=== PATIENT | male | born 1995 | race Caucasian/White ===

== ENCOUNTER 2023-08-26 19:59 | Emergency (ER) | payer SELFPAY ==
[2023-08-26 20:03] VITALS: BP 148/93; PULSE 75; TEMP 36.4; O2SAT 97; BMI 25.0
--- NOTE | 2023-08-26 20:10 | PC.NURSE ---
Patient has red area with dark center to right forearm with redness surrounding site. Patient noticed area last night and has worsened throughout the day, skin intact and no drainage noted.
--- NOTE | 2023-08-26 20:17 | ED_ITS ---
HPI HPI - General Adult General Chief complaint: Skin/Abscess/Foreign Body Stated complaint: SPIDER BITE Time Seen by Provider: 08/26/23 20:12 Source: patient Mode of arrival: walk-in Limitations: no limitations History of Present Illness HPI narrative: 28 year old male who presents with chief complaint of right upper extremity redness from possible insect bite. This morning and had increased in redness throughout the day while at work. Patient denies any fevers or chills. he otherwise healthy. There is no area of fluctuance to it. Small center scabbing is noted. Related Data Previous Rx's ?Medication ?Instructions ?Recorded cephalexin 500 mg capsule 500 mg PO TID 10 days #30 caps 08/26/23 sulfamethoxazole 800 1 tab PO BID 10 days #20 tabs 08/26/23 mg-trimethoprim 160 mg tablet (Bactrim DS) Allergies Allergy/AdvReac Type Severity Reaction Status Date / Time No Known Drug Allergies Allergy Verified 08/26/23 20:03 Opioid HPI Opioid Management Most Recent Opioid Data: No Data to Display Review of Systems ROS Narrative All Systems are negative except as noted/marked.All systems reviewed and otherwise negative Exam Narrative Exam Narrative: All Systems are negative except as noted/marked.All systems reviewed and otherwise negative Nurses note and vital signs reviewed and patient is not hypoxic. General: The patient appears well and in no apparent distress. Patient is resting comfortably on cart. Skin: Warm, dry, no pallor noted. 18x1 cm area of erythema to right upper extremity, marked with pen Head: Normocephalic, atraumatic Eye: Normal conjunctiva, no drainage, EOMI. PERRL Cardiovascular: Regular Rate and Rhythm Respiratory: Patient is in no distress, no accessory muscle use, lungs are clear to auscultation, no wheezing, rales or rhonchi GI: Normal bowel sounds, no tenderness to palpation, no masses appreciated. No rebound, guarding, or rigidity noted. Musculoskeletal: The patient has no evidence of calf tenderness, no pitting edema, symmetrical pulses noted bilaterally Neurological: A&O x4, normal speech Psychiatric: Cooperative Constitutional Vital Signs, click to edit/add: Last Vital Signs Temp 97.6 F 08/26/23 20:03 Pulse 75 08/26/23 20:03 Resp 18 08/26/23 20:03 BP 148/93 H 08/26/23 20:03 Pulse Ox 97 08/26/23 20:03 O2 Del Method Room Air 08/26/23 20:03 Course Vital Signs Vital signs: Vital Signs Temperature 97.6 F 08/26/23 20:03 Pulse Rate 75 08/26/23 20:03 Respiratory Rate 18 08/26/23 20:03 Blood Pressure 148/93 H 08/26/23 20:03 Pulse Oximetry 97 08/26/23 20:03 Oxygen Delivery Method Room Air 08/26/23 20:03 Temperature 97.6 F 08/26/23 20:03 Pulse Rate 75 08/26/23 20:03 Respiratory Rate 18 08/26/23 20:03 Blood Pressure 148/93 H 08/26/23 20:03 Pulse Oximetry 97 08/26/23 20:03 Oxygen Delivery Method Room Air 08/26/23 20:03 Medical Decision Making MDM Narrative Medical decision making narrative: Patient presented with chief complaint of right upper extremity redness. Area was marked by nursing staff. Patient appears to have cellulitis from insect bite. He is uncertain when he was bitten by. Patient be treated by Bactrim and Keflex. Patient was told return to the emergency room should he develop fever greater than 102 or pain. Medicated here as well as prescription. Follow-up primary care physician. Differential Diagnosis Differential Diagnosis: insect bite, cellullitis Medical Records Medical records reviewed: Yes I reviewed the patient's medical records Discharge Plan Discharge Stand Alone Forms: Portal Instructions Chief Complaint: Skin/Abscess/Foreign Body Clinical Impression: Cellulitis, Insect bites Patient Disposition: Home, Self-Care Time of Disposition Decision: 20:14 Condition: Good Prescriptions / Home Meds: New cephalexin 500 mg capsule 500 mg PO TID 10 Days Qty: 30 0RF sulfamethoxazole-trimethoprim [Bactrim DS] 800-160 mg tablet 1 tab PO BID 10 Days Qty: 20 0RF Print Language: [place]i Instructions: Cellulitis (ED), Insect Bite or Sting (ED) Referrals: Physician,Non-Staff, MD [Primary Care Provider] - 1 week
[2023-08-26] MEDS: SULFAMETHOXAZOLE/TRIMETHOPRIM 800-160 MG TABLET 1 TAB PO (20:26)
[2023-08-26] MEDS: CEPHALEXIN 500 MG CAPSULE PO (20:26)
== END 2023-08-26 20:33 | disposition home or self-care (01) ==
PROVIDERS: Emergency Provider Emergency Medicine
DX: S40.861A Insect bite (nonvenomous) of right upper arm, initial encounter (principal); L03.113 Cellulitis of right upper limb; W57.XXXA Bitten or stung by nonvenomous insect and other nonvenomous arthropods, initial encounter
CPT/HCPCS: 99283

== ENCOUNTER 2023-10-16 14:40 | Emergency (ER) | payer SELFPAY ==
[2023-10-16 14:45] VITALS: BP 147/98; PULSE 82; TEMP 36.9; O2SAT 95; BMI 25.0
--- OUTSIDE RECORDS SUMMARY | 2023-10-16 14:47 | XMS_ITS ---
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 By: #### E HARDEEP, LIPID, [id number], CBC, CMP, TSH3 wRFLX #### [facility] [address] [place] [address] Basophils/100 WBC (Bld) 0.2 % Normal . [facility] Comment on above: Performed By: #### E HARDEEP, LIPID, [id number], CBC, CMP, TSH3 wRFLX #### [address] Eosinophils (Bld) [#/Vol] 0.0 10*3/uL Normal 0.0-0.45 [facility] Comment on above: Performed By: #### E HARDEEP, LIPID, [id number], CBC, CMP, TSH3 wRFLX #### [facility] [address] [place] [address] [place] Eosinophils/100 WBC (Bld) 0.5 % Normal . [facility] Comment on above: Performed By: #### E HARDEEP, LIPID, [id number], CBC, CMP, TSH3 wRFLX #### [address] Erythrocyte distribution width (RBC) [Ratio] 13.3 % Normal 12.0-14.8 [facility] Comment on above: Performed By: #### E HARDEEP, LIPID, [id number], CBC, CMP, TSH3 wRFLX #### [address] [place] [address] [place] Hematocrit (Bld) [Volume fraction] 44.9 % Normal 38.8-50.0 [facility] Comment on above: Performed By: #### E HARDEEP, LIPID, [id number], CBC, CMP, TSH3 wRFLX #### [address] Hemoglobin (Bld) [Mass/Vol] 15.8 g/dL Normal 13.0-17.0 [facility] Comment on above: Performed By: #### E HARDEEP, LIPID, [id number], CBC, CMP, TSH3 wRFLX #### [address] Lymphocytes (Bld) [#/Vol] 1.9 10*3/uL Normal 1.00-4.8 [facility] Comment on above: Performed By: #### E HARDEEP, LIPID, [id number], CBC, CMP, TSH3 wRFLX #### [address] Lymphocytes/100 WBC (Bld) 36.9 % Normal . [facility] Comment on above: Performed By: #### E HARDEEP, LIPID, [id number], CBC, CMP, TSH3 wRFLX #### [address] MCH (RBC) [Entitic mass] 30.4 pg Normal 27.5-35.2 [facility] Comment on above: Performed By: #### E HARDEEP, LIPID, [id number], CBC, CMP, TSH3 wRFLX #### [address] MCV (RBC) [Entitic vol] 86.3 fL Normal 83.5-101 [facility] Comment on above: Performed By: #### E HARDEEP, LIPID, [id number], CBC, CMP, TSH3 wRFLX #### [address] Mean Corpuscular HGB Conc 35.2 g/dL Normal 32.5-35.6 [facility] Comment on above: Performed By: #### E HARDEEP, LIPID, [id number], CBC, CMP, TSH3 wRFLX #### [place] [address] [place] Monocytes (Bld) [#/Vol] 0.5 10*3/uL Normal 0.0-0.8 [facility] Comment on above: Performed By: #### E HARDEEP, LIPID, [id number], CBC, CMP, TSH3 wRFLX #### [place] [address] [place] Monocytes/100 WBC (Bld) 19.22 % Normal 0.00-20.00 [facility] Comment on above: Performed By: #### E HARDEEP, LIPID, [id number], CBC, CMP, TSH3 wRFLX #### [address] Monocytes/100 WBC (Bld) 9.6 % Normal . [facility] Comment on above: Performed By: #### E HRADEEP, LIPID, [id number], CBC, CMP, TSH3 wRFLX #### [place] [address] [place] Neutrophils (Bld) [#/Vol] 2.7 10*3/uL Normal 1.8-7.7 [facility] Comment on above: Performed By: #### E HARDEEP, LIPID, [id number], CBC, CMP, TSH3 wRFLX #### [place] [address] [place] Neutrophils/100 WBC (Bld) 52.8 % Normal . [facility] Comment on above: Performed By: #### E HARDEEP, LIPID, [id number], CBC, CMP, TSH3 wRFLX #### [place] [address] [place] NRBC% 0.3 /100{WBC} Normal 0-0.5 [facility] Comment on above: Performed By: #### E HARDEEP, LIPID, [id number], CBC, CMP, TSH3 wRFLX #### [facility] [address] Platelet mean volume (Bld) [Entitic vol] 7.4 fL Normal 6.6-10.1 [facility] Comment on above: Performed By: #### E HARDEEP, LIPID, [id number], CBC, CMP, TSH3 wRFLX #### [facility] [address] Platelets (Bld) [#/Vol] 192 10*3/uL Normal 150-450 [facility] Comment on above: Performed By: #### E HARDEEP, LIPID, [id number], CBC, CMP, TSH3 wRFLX #### [facility] [address] [place] [address] RBC (Bld) [#/Vol] 5.21 10*6/uL Normal 3.90-5.60 [facility] Comment on above: Performed By: #### E HARDEEP, LIPID, [id number], CBC, CMP, TSH3 wRFLX #### [facility] [address] [place] [address] WBC (Bld) [#/Vol] 5.2 10*3/uL Normal 4.1-10.5 [facility] Comment on above: Performed By: #### E HARDEEP, LIPID, [id number], CBC, CMP, TSH3 wRFLX #### [facility] [address] [place] [address] Comprehensive Metabolic Pane courtney 04-13-2023 Albumin [Mass/Vol] 4.7 g/dL Normal 3.5-5.7 [facility] Comment on above: Performed By: #### E HARDEEP, LIPID, [id number], CBC, CMP, TSH3 wRFLX ####[address] Albumin/Globulin [Mass ratio] 1.6 {ratio} Normal [facility] Comment on above: Performed By: #### E HARDEEP, LIPID, [id number], CBC, CMP, TSH3 wRFLX ####[facility] [place] [address] [facility] ALP [Catalytic activity/Vol] 91 U/L Normal 34-104 [facility] Comment on above: Performed By: #### E HARDEEP, LIPID, [id number], CBC, CMP, TSH3 wRFLX ####[address] [address] [facility] ALT [Catalytic activity/Vol] 20 U/L Normal 7-52 [facility] Comment on above: Performed By: #### E HARDEEP, LIPID, [id number], CBC, CMP, TSH3 wRFLX ####[address] [address] [facility] Anion gap [Moles/Vol] 9.3 mmol/L Normal 6.0-15.0 [facility] Comment on above: Performed By: #### E HARDEEP, LIPID, [id number], CBC, CMP, TSH3 wRFLX ####[address] [address] [facility] AST [Catalytic activity/Vol] 21 U/L Normal 13-39 [facility] Comment on above: Performed By: #### E HARDEEP, LIPID, [id number], CBC, CMP, TSH3 wRFLX ####[address] [address] [facility] Bilirubin [Mass/Vol] 0.5 mg/dL Normal 0.3-1.0 [facility] Comment on above: Performed By: #### E HARDEEP, LIPID, [id number], CBC, CMP, TSH3 wRFLX ####[address] [address] [facility] Calcium [Mass/Vol] 9.4 mg/dL Normal 8.6-10.3 [facility] Comment on above: Performed By: #### E HARDEEP, LIPID, [id number], CBC, CMP, TSH3 wRFLX ####[address] [address] [facility] Chloride [Moles/Vol] 106 mmol/L Normal 98-107 [facility] Comment on above: Performed By: #### E HARDEEP, LIPID, [id number], CBC, CMP, TSH3 wRFLX ####[place] [id number] [facility] CO2 [Moles/Vol] 27.8 mmol/L Normal 21.0-31.0 [facility] Comment on above: Performed By: #### E HARDEEP, LIPID, [id number], CBC, CMP, TSH3 wRFLX ####[place] [id number] [facility] Creatinine [Mass/Vol] 0.94 mg/dL Normal 0.70-1.30 [facility] Comment on above: Performed By: #### E HARDEEP, LIPID, [id number], CBC, CMP, TSH3 wRFLX ####[place] [id number] [facility] Creatinine Clr Calc Pharmacy 141.08 [facility] Comment on above: Result Comment: PERF ORMED BY: [facility] [address] [place] [address] PATHOLOGIST CHEMICAL SUPERVISOR CHAR AMES M.D. Performed By: #### E HARDEEP, LIPID, [id number], CBC, CMP, TSH3 wRFLX ####[place] [id number] [facility] GFR/1.73 sq M.predicted MDRD (S/P/Bld) [Vol rate/Area] mL/min/{1.73_m2} [facility] Comment on above: Performed By: #### E HARDEEP, LIPID, [id number], CBC, CMP, TSH3 wRFLX ####[address] [address] [facility] Globulin (S) [Mass/Vol] 2.9 g/dL [facility] Comment on above: Performed By: #### E HARDEEP, LIPID, [id number], CBC, CMP, TSH3 wRFLX ####[place] [id number] [facility] Glucose [Mass/Vol] 96 mg/dL Normal 70-100 [facility] Comment on above: Result Comment: [facility] Glucose Reference Range is dependent on time and content of last meal. Glucose of more than 200 mg/dL in a nonstressed, ambulatory subject supports the diagnosis of Diabetes Mellitus. ADA recommended reference range Performed By: #### E HARDEEP, LIPID, [id number], CBC, CMP, TSH3 wRFLX ####[facility] [id number] [place] [address] [facility] Potassium [Moles/Vol] 4.1 mmol/L Normal 3.5-5.1 [facility] Comment on above: Performed By: #### E HARDEEP, LIPID, [id number], CBC, CMP, TSH3 wRFLX ####[facility] [id number] [place] [address] [facility] Protein [Mass/Vol] 7.6 g/dL Normal 6.4-8.9 [facility] Comment on above: Performed By: #### E HARDEEP, LIPID, [id number], CBC, CMP, TSH3 wRFLX ####[facility] [id number] [place] [address] [facility] Sodium [Moles/Vol] 139 mmol/L Normal 136-145 [facility] Comment on above: Performed By: #### E HARDEEP, LIPID, [id number], CBC, CMP, TSH3 wRFLX ####[facility] [id number] [place] [address] [facility] Urea nitrogen [Mass/Vol] 12 mg/dL Normal 7-25 [facility] Comment on above: Performed By: #### E HARDEEP, LIPID, [id number], CBC, CMP, TSH3 wRFLX ####[facility] [place] [address] [facility] Creatinine [Mass/volume] in Serum or PlasmaOrdered By: Germán Wilcox on 04-13-2023 Creatinine [Mass/Vol] 0.94 mg/dL 0.70-1.30 [facility] Drug Screen,Urineon 04-13-20 Amphetamine Screen,Urine Negative Normal Negative [facility] Comment on above: Performed By: #### U A, URDS #### [facility] [address] [place] [address] Barbiturate Screen,Urine Negative Normal Negative [facility] Comment on above: Performed By: #### U A, URDS #### [address] Benzodiazepines Screen,Urine Negative Normal Negative [facility] Comment on above: Performed By: #### U A, URDS #### [address] Cannabinoid Screen,Urine Positive High Negative [facility] Comment on above: Result Comment: Thes e are unconfirmed results and should not be used for legal purposes. Drug Cut-Off Concentration: AMPH 1000 ng/mL DEDE 200 ng/mL ADELA 200 ng/mL COCM 300 ng/mL OP 300 ng/mL PCP 25 ng/mL THC 20 ng/mL PERFORMED BY: [place] [address] PATHOLOGIST CHEMICAL SUPERVISOR CHAR AMES M.D. Performed By: #### U A, URDS #### [address] Cocaine Screen,Urine Negative Normal Negative [facility] Comment on above: Performed By: #### U A, URDS #### [address] Opiate Screen,Urine Negative Normal Negative [facility] Comment on above: Performed By: #### U A, URDS #### [place] [address] [place] Phencyclidine Screen,Urine Negative Normal Negative [facility] Comment on above: Performed By: #### U A, URDS #### [address] Eosinophils Auto (Bld) [#/Vo l]Ordered By: Germán Wilcox on 04-13-2023 Eosinophils (Bld) [#/Vol] 0.0 10*3/uL 0.0-0.45 [facility] Eosinophils/100 WBC Auto (Bl d)Ordered By: Germán Wilcox on 04-13-2023 Eosinophils/100 WBC (Bld) 0.5 % . [facility] Erythrocyte distribution wid th Auto (RBC) [Ratio]Ordered By: Germán Wilcox on 04-13-2023 Erythrocyte distribution width (RBC) [Ratio] 13.3 % 12.0-14.8 [facility] Ethanol [Mass/volume] in Ser um or PlasmaOrdered By: Germán Wilcox on 04-13-2023 Ethanol [Mass/Vol] mg/dL [facility] Ethanol [Mass/Vol] TNP [facility] Comment on above: Test not performed Ethyl Alcohol Profileon 03-19 Ethanol [Mass/Vol] mg/dL Normal [facility] Comment on above: Performed By: #### E HARDEEP, LIPID, [id number], CBC, CMP, TSH3 wRFLX ####[facility] [id number] Percent Ethanol Not performed Normal [facility] Comment on above: Result Comment: PERF ORMED BY: [facility] [address] [place] [address] PATHOLOGIST CHEMICAL SUPERVISOR CHAR AMES M.D. Performed By: #### E HARDEEP, LIPID, [id number], CBC, CMP, TSH3 wRFLX ####[facility] [id number] Globulin Calc (S) [Mass/Vol] Ordered By: Germán Wilcox on 04-13-2023 Globulin (S) [Mass/Vol] 2.9 g/dL [facility] Glucose [Mass/volume] in Ser um or PlasmaOrdered By: Germán Wilcox on 04-13-2023 Glucose [Mass/Vol] 96 mg/dL 70-100 [facility] Comment on above: ADA recommended refe rence rangeRandom Glucose Reference Range is dependent on time and content of last meal. Glucose of more than 200 mg/dL in a nonstressed, ambulatory subject supports the diagnosis of Diabetes Mellitus. Hematocrit Auto (Bld) [Volum e fraction]Ordered By: Germán Wilcox on 04-13-2023 Hematocrit (Bld) [Volume fraction] 44.9 % 38.8-50.0 [facility] Hemoglobin [Mass/volume] in BloodOrdered By: Germán Wilcox on 04-13-2023 Hemoglobin (Bld) [Mass/Vol] 15.8 g/dL 13.0-17.0 [facility] Ketones Auto test strip (U) [Mass/Vol]Ordered By: Germán Wilcox on 04-13-2023 Ketones (U) [Mass/Vol] Negative Negative [facility] Leukocytes [#/volume] correc selina for nucleated erythrocytes in Blood by Automated counOrdered By: Germán Wilcox on 04-13-2023 WBC corrected for nucl RBC Auto (Bld) [#/Vol] 5.2 10*3/uL 4.1-10.5 [facility] Lipid Panelon 04-13-2023 Cholesterol [Mass/Vol] 174 mg/dL Normal 140-200 [facility] Comment on above: Result Comment: Chol less than 200 mg/dl low risk Chol 201-239 mg/dl borderline risk Chol 240 mg/dl and greater high risk Performed By: #### E HARDEEP, LIPID, [id number], CBC, CMP, TSH3 wRFLX ####[place] [address] [address] Cholesterol in HDL [Mass/Vol] 39 mg/dL Normal 23-92 [facility] Comment on above: Result Comment: HDL CHOL ATP-III CLASSIFICATION Cardiovascular Risk HDL > or equal to 60 mg/dL LOW HDL < 40 mg/dL HIGH Performed By: #### E HARDEEP, LIPID, [id number], CBC, CMP, TSH3 wRFLX ####[facility] [id number] [place] [address] [facility] Cholesterol.total/Cho lesterol in HDL [Mass ratio] 4.5 {ratio} Normal <5.0 [facility] Comment on above: Performed By: #### E HARDEEP, LIPID, [id number], CBC, CMP, TSH3 wRFLX ####[place] [id number] [facility] LDL Cholesterol,Calculate d 123 mg/dL High 0-100 [facility] Comment on above: Result Comment: LDL ATP III CLASSIFICATION LDL less than 100 mg/dL Optimal LDL 100-129 mg/dL Near or above optimal LDL 130-159 mg/dL Borderline high LDL 160-189 mg/dL High LDL greater than 189 mg/dL Very high Performed By: #### E HARDEEP, LIPID, [id number], CBC, CMP, TSH3 wRFLX ####[facility] [id number] Triglyceride w/Reflex 58 mg/dL Normal 0-149 [facility] Comment on above: Result Comment: TRIG ATP III CLASSIFICATION TRIG less than 150 mg/dL Normal TRIG 150-199 mg/dL Borderline high TRIG 200-500 mg/dL High TRIG greater than 500 mg/dL Very high Standard traceable to the Center for Disease Conrtrol and Prevention (CDC) test method. Performed By: #### E HARDEEP, LIPID, [id number], CBC, CMP, TSH3 wRFLX ####[facility] [id number] VLDL CHOLESTEROL 11 mg/dL Normal [facility] Comment on above: Performed By: #### E HARDEEP, LIPID, [id number], CBC, CMP, TSH3 wRFLX ####[facility] [id number] Lymphocytes Auto (Bld) [#/Vo l]Ordered By: Germán Wilcox on 04-13-2023 Lymphocytes (Bld) [#/Vol] 1.9 10*3/uL 1.00-4.8 [facility] Lymphocytes/100 WBC Auto (Bl d)Ordered By: Germán Wilcox on 04-13-2023 Lymphocytes/100 WBC (Bld) 36.9 % . [facility] MCH Auto (RBC) [Entitic mass ]Ordered By: Gemrán Wilcox on 04-13-2023 MCH (RBC) [Entitic mass] 30.4 pg 27.5-35.2 [facility] MCHC Auto (RBC) [Mass/Vol]Or dered By: Germán Wilcox on 04-13-2023 MCHC (RBC) [Mass/Vol] 35.2 g/dL 32.5-35.6 [facility] MCV Auto (RBC) [Entitic vol] Ordered By: Germán Wilcox on 04-13-2023 MCV (RBC) [Entitic vol] 86.3 fL 83.5-101 [facility] Monocyte distribution width [Entitic volume] in Blood by AutomatedOrdered By: Germán Wilcox on 04-13-2023 Monocyte distribution width Auto (Bld) [Entitic vol] 19.22 % 0.00-20.00 [facility] Monocytes Auto (Bld) [#/Vol] Ordered By: Germán Wilcox on 04-13-2023 Monocytes (Bld) [#/Vol] 0.5 10*3/uL 0.0-0.8 [facility] Monocytes/100 WBC Auto (Bld) Ordered By: Germán Wilcox on 04-13-2023 Monocytes/100 WBC (Bld) 9.6 % . [facility] Neutrophils Auto (Bld) [#/Vo l]Ordered By: Germán Wilcox on 04-13-2023 Neutrophils (Bld) [#/Vol] 2.7 10*3/uL 1.8-7.7 [facility] Neutrophils/100 WBC Auto (Bl d)Ordered By: Germán Wilcox on 04-13-2023 Neutrophils/100 WBC (Bld) 52.8 % . [facility] Nitrite Test strip Ql (U)Ord ered By: Germán Wilcox on 04-13-2023 Nitrite Ql (U) Negative Negative [facility] No Panel InformationOrdered By: Germán Wilcox on 04-13-2023 Estimated GFR (CKD-EPI) > 60.0 mL/Min [facility] Creatinine Clearance (Chem 141.08 [facility] Nucleated erythrocytes [Pres ence] in Blood by Automated countOrdered By: Germán Wilcox on 04-13-2023 Nucleated RBC Auto Ql (Bld) 0.3 /100{WBC} 0-0.5 [facility] Opiates [Presence] in Urine by Screen methodOrdered By: Germán Wilcox on 04-13-2023 Opiates Screen Ql (U) Negative Negative [facility] Phencyclidine Screen Ql (U)O rdered By: Germán Wilcox on 04-13-2023 Phencyclidine Ql (U) Negative Negative [facility] Platelet mean volume Auto (B ld) [Entitic vol]Ordered By: Germán Wilcox on 04-13-2023 Platelet mean volume (Bld) [Entitic vol] 7.4 fL 6.6-10.1 [facility] Platelets Auto (Bld) [#/Vol] Ordered By: Germán Wilcox on 04-13-2023 Platelets (Bld) [#/Vol] 192 10*3/uL 150-450 [facility] Potassium [Moles/volume] in Serum or PlasmaOrdered By: Germán Wilcox on 04-13-2023 Potassium [Moles/Vol] 4.1 mmol/L 3.5-5.1 [facility] Protein Auto test strip (U) [Mass/Vol]Ordered By: Germán Wilcox on 04-13-2023 Protein (U) [Mass/Vol] Negative Negative [facility] Protein [Mass/volume] in Ser um or PlasmaOrdered By: Germán Wilcox on 04-13-2023 Protein [Mass/Vol] 7.6 g/dL 6.4-8.9 [facility] RBC Auto (Bld) [#/Vol]Ordere d By: Germán Wilcox on 04-13-2023 RBC (Bld) [#/Vol] 5.21 10*6/uL 3.90-5.60 [facility] Serum or plasma albumin/glob ulin mass ratioOrdered By: Germán Wilcox on 04-13-2023 Albumin/Globulin [Mass ratio] 1.6 {ratio} [facility] Serum or plasma anion gap de terminationOrdered By: Germán Wilcox on 04-13-2023 Anion gap [Moles/Vol] 9.3 mmol/L 6.0-15.0 [facility] Serum or plasma high density lipoprotein (HDL) cholesterol measurementOrdered By: Germán Wilcox on 04-13-2023 Cholesterol in HDL [Mass/Vol] 39 mg/dL 23-92 [facility] Comment on above: HDL CHOL ATP-III CLA SSIFICATION Cardiovascular RiskHDL > or equal to 60 mg/dL LOWHDL < 40 mg/dL HIGH Serum or plasma total choles terol/high density lipoprotein (HDL) cholesterol mass ratOrdered By: Germán Wilcox on 04-13-2023 Cholesterol.total/Cho lesterol in HDL [Mass ratio] 4.5 {ratio} <5.0 [facility] Sodium [Moles/volume] in Ser um or PlasmaOrdered By: Germán Wilcox on 04-13-2023 Sodium [Moles/Vol] 139 mmol/L 136-145 [facility] Specific gravity Auto test s trip (U) [Rel density]Ordered By: Germán Wilcox on 04-13-2023 Specific gravity (U) [Rel density] 1.025 1.001-1.03 0 [facility] Thyroid Stim Hormone w/Rflxo n 04-13-2023 Thyroid Stim Hormone w/Rflx 1.24 u[iU]/mL Normal 0.45-5.33 [facility] Comment on above: Performed By: #### E HARDEEP, LIPID, [id number], CBC, CMP, TSH3 wRFLX ####[facility] [id number] Thyrotropin [Units/volume] i n Serum or PlasmaOrdered By: Germán Wilcox on 04-13-2023 TSH Qn 1.24 m[IU]/L 0.45-5.33 [facility] Triglyceride [Mass/volume] i n Serum or PlasmaOrdered By: Germán Wilcox on 04-13-2023 Triglyceride [Mass/Vol] 58 mg/dL 0-149 [facility] Comment on above: TRIG ATP III CLASSIF ICATIONTRIG less than 150 mg/dL NormalTRIG 150-199 mg/dL Borderline highTRIG 200-500 mg/dL High TRIG greater than 500 mg/dL Very highStandard traceable to the Center for Disease Conrtrol and Prevention (CDC) test method. Urea nitrogen [Mass/volume] in Serum or PlasmaOrdered By: Germán Wilcox on 04-13-2023 Urea nitrogen [Mass/Vol] 12 mg/dL 7-25 [facility] Urinalysison 04-13-2023 Appearance (U) Clear Normal Clear [facility] Comment on above: Order Comment: Name Collection Type:: Clean-Voided Midstream Performed By: #### U A, URDS #### [facility] [address] Bilirubin,Urine Negative Normal Negative [facility] Comment on above: Order Comment: Name Collection Type:: Clean-Voided Midstream Performed By: #### U A, URDS #### [facility] [address] [place] [address] [place] Color (U) Yellow Normal Yellow [facility] Comment on above: Order Comment: Name Collection Type:: Clean-Voided Midstream Performed By: #### U A, URDS #### [facility] [address] [place] [address] Glucose Ql (U) Normal Normal Normal [facility] Comment on above: Order Comment: Name Collection Type:: Clean-Voided Midstream Performed By: #### U A, URDS #### [facility] [address] [place] [address] Ketones Ql (U) Negative Normal Negative [facility] Comment on above: Order Comment: Name Collection Type:: Clean-Voided Midstream Performed By: #### U A, URDS #### [facility] [address] [place] [address] Leukocyte esterase Test strip Ql (U) Negative Normal Negative [facility] Comment on above: Order Comment: Name Collection Type:: Clean-Voided Midstream Performed By: #### U A, URDS #### [facility] [address] [place] [address] Nitrite,Urine Negative Normal Negative [facility] Comment on above: Order Comment: Name Collection Type:: Clean-Voided Midstream Performed By: #### U A, URDS #### [facility] [address] [place] [address] Occult Blood,Urine Negative Normal Negative [facility] Comment on above: Order Comment: Name Collection Type:: Clean-Voided Midstream Result Comment: PERF ORMED BY: [place] [address] PATHOLOGIST CHEMICAL SUPERVISOR CHAR AMES M.D. Performed By: #### U A, URDS #### [facility] [address] [place] [address] [place] pH (U) 6.5 [pH] Normal 5.0-9.0 [facility] Comment on above: Order Comment: Name Collection Type:: Clean-Voided Midstream Performed By: #### U A, URDS #### [facility] [address] [place] [address] [place] Protein,Urine Negative Normal Negative [facility] Comment on above: Order Comment: Name Collection Type:: Clean-Voided Midstream Performed By: #### U A, URDS #### [facility] [address] Specificy [place],Urine 1.025 Normal 1.001-1.03 0 [facility] Comment on above: Order Comment: Name Collection Type:: Clean-Voided Midstream Performed By: #### U A, URDS #### [facility] [address] Urobilinogen,Urine Normal Normal Normal [facility] Comment on above: Order Comment: Name Collection Type:: Clean-Voided Midstream Performed By: #### U A, URDS #### [facility] [address] [place] [address] Urine clarity by refractomet ry automatedOrdered By: Germán Wilcox on 04-13-2023 Clarity Refractometry automated (U) Clear Clear [facility] Urine glucose measurement by automated test strip (mass/volume)Ordered By: Germán Wilcox on 04-13-2023 Glucose Auto test strip (U) [Mass/Vol] Normal mg/dL Normal [facility] Urine hemoglobin detection b y automated test stripOrdered By: Germán Wilcox on 04-13-2023 Hemoglobin Auto test strip Ql (U) Negative Negative [facility] Urine leukocyte esterase det ection by automated test stripOrdered By: Germán Wilcox on 04-13-2023 Leukocyte esterase Auto test strip Ql (U) Negative Negative [facility] Urobilinogen Auto test strip (U) [Mass/Vol]Ordered By: Germán Wilcox on 04-13-2023 Urobilinogen (U) [Mass/Vol] Normal mg/dL Normal [facility] Vitamin D 25 Hydroxy Totalon 04-13-2023 Vitamin D 25 Hydroxy Total 24.8 ng/mL Low 30-100 [facility] Comment on above: Result Comment: MELCHOR MIN D STATUS 25([place])VITAMIN D RANGE (ng/mL) Deficient <20 Insufficient 20 to <30 Sufficient 30 to 100 Reference: Bridgette Nugent, Eliz VELEZ, et al. Evaluation,treatment, and prevention of vitamin D deficiency; an Endocrine Society clinical practice guideline. JCEM. 2010; 96(7):1911-. PERFORMED BY: [place] [address] PATHOLOGIST CHEMICAL SUPERVISOR CHAR AMES M.D. Performed By: #### E HARDEEP, LIPID, [id number], CBC, CMP, TSH3 wRFLX ####[facility] [id number] [place] [id number] [facility] Vitamin D+Metabolites [Mass/ volume] in Serum or PlasmaOrdered By: Germán Wilcox on 04-13-2023 Vitamin D+Metabolites [Mass/Vol] 24.8 ng/mL 30-100 [facility] Comment on above: VITAMIN D STATUS 25( [place])VITAMIN D RANGE (ng/mL) Deficient <20 Insufficient 20 to <30Sufficient 30 to 100Reference: Bridgette Nugent, Eliz VELEZ, et al. Evaluation,treatment, and prevention of vitamin D deficiency; an Endocrine Society clinical practice guideline. JCEM. 2010; 96(7):1911-30. WBC Auto (Bld) [#/Vol]Ordere d By: Germán Wilcox on 04-13-2023 WBC (Bld) [#/Vol] 5.2 10*3/uL 4.1-10.5 [facility] XR acute abdomen serieson XR acute abdomen series [facility] Main [place] [id number] XRay Report Signed Patient: Shahbaz Bettencourt MR#: [id number] 9 : 1995 Acct:[id number] Age/Sex: 28 / M ADM Date: 04/13/23 Loc: Room: [address] [place] [address] Type: ADM IN Attending Dr: Huan Brown MD Copies to: MD Germán Kline DO Ordering Provider: Germán Wilcox DO Date of Service: 04/13/23 XR/XR acute abdomen series: Patient states he swallowed 4-5 quarters Acute abdominal series COMPARISON: 01/26/2023 HISTORY: Swallowed 4 quarters. THORAX: Lung bases unremarkable. FREE AIR: Supine position limits assessment BOWEL: No gaseous intestinal distention. STOOL: No significant stool RENAL STONES: No significant stones present. VASCULAR CALCIFICATIONS: Unremarkable SOFT TISSUE: Unremarkable BONES: Unremarkable POSTSURGICAL CHANGES: None No metallic or radiodense foreign body identified. XR/XR acute abdomen series IMPRESSION: No significant findings. No metallic foreign body from the midneck to the pelvis. Impression dictated by: Nate Marie M.D.04/13/2023 4:43 PM Dictation Location: [place] [address] Transcribed By: [place] 04/13/231642 Dictated By: Nate Marie DO 04/13/231640 Signed By: 04/13/231642 Normal [facility] pH Auto test strip (U)Ordere d By: Germán Wilcox on 04-13-2023 pH (U) 6.5 [pH] 5.0-9.0 [facility] Alanine aminotransferase [En zymatic activity/volume] in Serum or PlasmaOrdered By: Jorge L Beavers on 01-26-2023 ALT [Catalytic activity/Vol] 35 U/L 7-52 [facility] Albumin [Mass/volume] in Ser um or Plasma by Bromocresol green (BCG) dye binding methoOrdered By: Jorge L Beavers on 01-26-2023 Albumin BCG dye [Mass/Vol] 4.3 g/dL 3.5-5.7 [facility] Alkaline phosphatase [Enzyma tic activity/volume] in Serum or PlasmaOrdered By: Jorge L Beavers on 01-26-2023 ALP [Catalytic activity/Vol] 73 U/L 34-104 [facility] Amylaseon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 ####[facility] (DEFAULT)[address] [place] [address] Man Diff? Auto Normal [facility] Comment on above: Performed By: #### 5 [id number], [id number], [id number] ####[facility] (DEFAULT)[address] [place] [address] MCH 31 pg Normal 24-34 [facility] Comment on above: Performed By: #### 5 [id number], [id number], [id number] ####[facility] (DEFAULT)[address] [place] [address]754 MCHC mass conc (RBC) 36 g/dL Normal 26-37 [facility] Comment on above: Performed By: #### 5 [id number], [id number], [id number] ####[facility] (DEFAULT)[address] [place] [address] 84657 MCV 86 fL Normal 81-100 [facility] Comment on above: Performed By: #### 5 [id number], [id number], [id number] ####[facility] (DEFAULT)[address] [place] [address] Platelet mean volume (PMV) 9.4 fL Normal 6.3-10.2 [facility] Comment on above: Performed By: #### 5 [id number], [id number], [id number] ####[facility] (DEFAULT)[address] [place] [address] Platelets 143 x10 Normal 138-427 [facility] Comment on above: Performed By: #### 5 [id number], [id number], [id number] ####[facility] (DEFAULT)[address] [place] [address] WBC (Leukocytes) 5.0 x10 Invalid Interpretation Code [facility] Comment on above: Performed By: #### 5 [id number], [id number], [id number] ####[facility] (DEFAULT)[address] [place] [address] CMP Standardon 08-02-2017 Albumin 4.4 g/dL Normal 3.5-5.0 [facility] Comment on above: Performed By: #### 5 [id number], [id number], [id number] ####[facility] (DEFAULT)[address] [place] [address] Albumin/Globulin Ratio 1.4 {ratio} Normal 1.4-2.6 [facility] Comment on above: Performed By: #### 5 [id number], [id number], [id number] ####[facility] (DEFAULT)[address] [place] [address] Alk Phos 80 IU/L Normal 32-91 [facility] Comment on above: Performed By: #### 5 [id number], [id number], [id number] ####[facility] (DEFAULT)[address] [place] [address] ALT/SGPT 21.0 IU/L Normal 17.0-63.0 [facility] Comment on above: Performed By: #### 5 [id number], [id number], [id number] ####[facility] (DEFAULT)[address] [place] [address] Anion gap 10.0 mmol/L Normal 5.0-19.0 [facility] Comment on above: Performed By: #### 5 [id number], [id number], [id number] ####[facility] (DEFAULT)[address] [place] [address] AST/SGOT 21 IU/L Normal 15-41 [facility] Comment on above: Performed By: #### 5 [id number], [id number], [id number] ####[facility] (DEFAULT)[address] [place] [address] Bili Total 0.8 mg/dL Normal 0.3-1.2 [facility] Comment on above: Performed By: #### 5 [id number], [id number], [id number] ####[facility] (DEFAULT)[address] [place] [address] BUN/Creatinine Ratio 10.0 mg/mg Normal 4.6-16.2 [facility] Comment on above: Performed By: #### 5 [id number], [id number], [id number] ####[facility] (DEFAULT)[address] [place] [address] Calcium 8.7 mg/dL Low 8.9-10.3 [facility] Comment on above: Performed By: #### 5 [id number], [id number], [id number] ####[facility] (DEFAULT)[address] [place] [address] Chloride 103 mmol/L Normal 101-111 [facility] Comment on above: Performed By: #### 5 [id number], [id number], [id number] ####[facility] (DEFAULT)[address] [place] [address]26 CO2 27 mmol/L Normal 21-32 [facility] Comment on above: Performed By: #### 5 [id number], [id number], [id number] ####[facility] (DEFAULT)[address] [place] [address]5716 Creatinine 0.99 mg/dL Normal 0.90-1.30 [facility] Comment on above: Performed By: #### 5 [id number], [id number], [id number] ####[facility] (DEFAULT)[address] [place] [address]200 eGFR (non-black) mL/min/{1.73_m2} Invalid Interpretation Code [facility] Comment on above: Performed By: #### 5 [id number], [id number], [id number] ####[facility] (DEFAULT)[address] [place] [address] Result Comment: Plaster Block Layer gilda Kidney disease could be indicated at eGFRs of less than 60 ml/min/1.73m2. Kidney Failure is indicated at less than 15 ml/min/1.73m2 Globulin 3.1 g/dL Normal 1.5-4.3 [facility] Comment on above: Performed By: #### 5 [id number], [id number], [id number] ####[facility] (DEFAULT)[address] [place] [address]2786 Glucose mass conc 100.0 mg/dL Normal 74.0-118.0 [facility] Comment on above: Performed By: #### 5 [id number], [id number], [id number] ####[facility] (DEFAULT)[address] [place] [address]60 Osmolality 271 mOsm/L Invalid Interpretation Code [facility] Comment on above: Performed By: #### 5 [id number], [id number], [id number] ####[facility] (DEFAULT)[address] [place] [address]5510 Potassium molar conc 3.8 mmol/L Normal 3.6-5.1 [facility] Comment on above: Performed By: #### 5 [id number], [id number], [id number] ####[facility] (DEFAULT)[address] [place] [address]25 Protein 7.5 g/dL Normal 6.5-8.1 [facility] Comment on above: Performed By: #### 5 [id number], [id number], [id number] ####[facility] (DEFAULT)[address] [place] [address] Sodium 136.0 mmol/L Normal 136.0-144. 0 [facility] Comment on above: Performed By: #### 5 [id number], [id number], [id number] ####[facility] (DEFAULT)[address] [place] [address] Urea nitrogen 10 mg/dL Normal 12-11 [facility] Comment on above: Performed By: #### 5 [id number], [id number], [id number] ####[facility] (DEFAULT)[address] [place] [address] ED Clinical Summaryon 2017 ED Clinical Summary [facility] - Emergency [address] [place] [address] ed Clinical SummaryPERSON INFORMATIONName: SHAHBAZ BETTENCOURT Age: 22 Years Sex: MALEDOB: [birth year] MRN: Acct#:Visit Reason: Abdominal pain; ABD PAIN, VOMITING Arrival: 08/02/17 12:02:00 Discharge: 08/02/17 14:09:00LOS: 000 02:07 Check In: 08/02/17 12:02:00 Checkout:08/02/17 14:09:00Address:[address] [facility] [address]AOD: Provider, NonePROVIDER INFORMATIONProvider Role Assigned UnassignedLavelle De PA-C ED PA 08/02/17 12:16:04Fernanda Aragon RN ED Nurse 08/02/17 12:31:14VITALS INFORMATIONVital Sign Triage LatestTemperature TympanicTemperature Temporal ArteryPulse Rate 86 bpm 86 bpmO2 Sat 99 % 99 %Respiratory Rate 18 br/min 18 br/minBlood Pressure 144 mmHg/89 mmHg 144 mmHg/89 mmHgMEDICAL INFORMATIONMedications Given:Medication Dose Routeondansetron 4 mg POAllergy Information:No Known Medication AllergiesPHYSICIAN DOCUMENTATIONPatient: SHAHBAZ BETTENCOURT : 22 years Sex: MALE : [birth year]Associated Diagnoses: Viral gastroenteritisAuthor: Lavelle De PA-C InformationTime seen: Date & time 08/02/17 12:38:00.History source: Patient.Arrival mode: Private vehicle.History limitation: None.History of Present [id number] male presented to the emergency today with chief complaint of nausea vomiting abdominal pain. Patient stated this started early this morning with vomiting. He denied any episodes of diarrhea. He states he continued to have nausea and vomiting this morning. He stated some epigastric or left upper quadrant discomfort. He states this is like a stomach ache. He denies any right lower quadrant tenderness. He denies any history of any abdominal surgeries. He denied any fever or chills. He denies any recent contacts with similar symptoms. He denies any cold or cough ear pain sore throat and nasal congestion. He denied any urinary symptoms. He denies any headache dizziness lightheadedness. He states he still has nausea. Patient states that he has been able to tolerate water this morning. He states he does not feel like eating. Patient does not currently take any medications he is not on medication allergies. He does not currently have a primary care provider. He has no other complaints at this time.Review of SystemsConstitutional symptoms: No fever, no chills, no sweats, no weakness, no fatigue.Skin symptoms: No rash,Eye symptoms: Vision unchanged.ENMT symptoms: No ear pain, no sore throat, no nasal congestion.Respiratory symptoms: No shortness of breath, no cough.Cardiovascular symptoms: No chest pain, no palpitations, no tachycardia, no syncope, no diaphoresis, no peripheral edema.Gastrointestinal symptoms: Abdominal pain, mild, achy, nausea, vomiting, no diarrhea, no constipation, no rectal bleeding.Genitourinary symptoms: No dysuria, no hematuria.Musculoskeletal symptoms: No back pain, no Muscle pain, no Joint pain.Neurologic symptoms: No headache, no dizziness, no altered level of consciousness, no numbness, no tingling, no weakness. Additional review of systems information: All other systems reviewed and otherwise negative.Health StatusAllergies:Allergic Reactions (Selected)No Known Medication Allergies.Medications: (Selected)Inpatient MedicationsCompletedAbilify: 10 mg, 2 tab(s), PO, OnceAtivan injection: 2 mg, 1 mL, IM, OnceBenadryl: 25 mg, 1 cap(s), PO, OnceBenadryl: 50 mg, 2 cap(s), PO, OnceGeodon: 10 mg, 0.5 mL, IM, OnceGeodon: 20 mg, 1 mL, IM, OnceHaldol: 5 mg, 1 mL, IM, OnceHaldol: 5 mg, 1 mL, IM, Once, PRN: agitationReglan: 10 mg, 10 mL, PO, OnceVersed: 5 mg, 1 mL, IM, OnceZofran: 4 mg, 1 EA, PO, Oncebacitracin topical: 500 unit(s), 1 elisa, TOP, Oncebacitracin topical: 500 unit(s), 1 elisa, TOP, OncediphenhydrAMINE: 50 mg, 1 mL, IM, Oncemidazolam: 5 mg, 1 mL, IV Push, Oncepotassium bicarbonate: 25 mEq, 1 tab(s), PO, Oncepotassium bicarbonate: 25 mEq, 1 tab(s), PO, OnceDiscontinuedVersed: 10 mg, 2 mL, IM, OncePrescriptionsPrescribedNe xIUM 20 mg oral delayed release capsule: 20 mg, 1 cap(s), PO, Daily, 30 cap(s), 0 Refill(s)CompletedLevaquin 500 mg oral tablet: 500 mg, 1 tab(s), PO, q24hr (int), for 3 day(s), 3 tab(s), 0 Refill(s)Levsin 0.125 mg oral tablet: 0.125 mg, 1 tab(s), PO, QID, PRN: for spasm, 20 tab(s), 0 Refill(s)diphenhydrAMINE 25 mg oral tablet: 25 mg, 1 tab(s), PO, Daily, for 21 day(s), PRN: as needed for nausea/vomiting, 21 tab(s), 0 Refill(s)famotidine 20 mg oral tablet: 20 mg, 1 tab(s), PO, Once a day (at bedtime), for 21 day(s), 21 tab(s), 0 Refill(s)metoclopramide 5 mg/5 mL oral syrup: 10 mg, 10 mL, PO, Daily, for 21 day(s), Take 10 mL with 25 mg of diphenhydramine once daily as needed for upset stomach, PRN: headache, 210 mL, 0 Refill(s)Documented MedicationsDocumentedFLUoxeti ne 10 mg oral capsule: 10 mg, 1 cap(s), PO, qPM, 0 Refill(s)FLUoxetine 20 mg oral capsule: 20 mg, 1 cap(s), PO, qPM, 0 Refill(s).Past Medical/ Family/ Social HistorySocial history:Social & Psychosocial HabitsSubstance Abuse08/12/2016 Risk Assessment: Low Risk08/12/2016 Type: Marijuana Frequency: 1-2 times per month.Physical ExaminationGeneral: Alert, no acute distress.Skin: Warm, dry, intact, no pallor, no rash.Head: Normocephalic, atraumatic.Neck: Supple.Eye: Pupils are equal, round and reactive to light, extraocular movements are intact, normal conjunctiva.Ears, nose, mouth and throat: Oral mucosa moist.Cardiovascular: Regular rate and rhythm, No murmur, Normal peripheral perfusion, No edema.Respiratory: Lungs are clear to auscultation, respirations are non-labored, breath sounds are equal, Symmetrical chest wall expansion, Lungs have clear bilaterally. No wheezing rhonchi or crackles on exam..Chest wall: No tenderness, No deformity.Back: Nontender, Normal range of motion, Normal alignment, no step-offs, No localizing spinal or paraspinal tenderness. No focal deficits. No CVA tenderness..Musculoskeletal: Normal ROM, normal strength, no tenderness, no swelling, no deformity.Gastrointestinal: Soft, Nontender, Non distended, Normal bowel sounds, No organomegaly, Abdomen is soft nontender nondistended. No rigidity rebound or guarding on exam. No right lower quadrant tenderness. No McBurney's point tenderness..Neurological: Alert and oriented to person, place, time, and situation, No focal neurological deficit observed, normal sensory observed, normal motor observed, normal speech observed, normal coordination observed, Normal sensory, motor, speech, coordination is observed on exam..Lymphatics: No lymphadenopathy.Psychiatric: Cooperative, appropriate mood & affect, normal judgment.Medical Decision MakingOrders Launch OrdersLaboratory:Lipase Level (Order): Blood, Stat collect, 08/02/17 12:50 EDT, Lab CollectAmylase Level (Order): Blood, Stat collect, 08/02/17 12:50 EDT, Lab CollectUrinalysis with Culture, if indicated Standard (Order): Urine, Stat collect, 08/02/17 12:50 EDT, Nurse collectCMP Standard (Order): Blood, Stat collect, 08/02/17 12:50 EDT, Lab CollectCBC w/ Auto Diff (Order): Blood, Stat collect, 08/02/17 12:50 EDT, Lab CollectPharmacy:Zofran (Order): 4 mg, PO, Once.Results review: Lab results : Lab Jmxrorvex01/17/18 12:50 EDT Sodium Level 136.0 mmol/L Potassium Level 3.8 mmol/L Chloride Level 103 mmol/L CO2 27 mmol/L Anion Gap 10.0 mmol/L Glucose Level 100.0 mg/dL BUN 10 mg/dL Creatinine Level 0.99 mg/dL BUN/Creat Ratio 10.0 eGFR AA >60 mL/min/1.73m2 NA eGFR Non AA >60 mL/min/1.73m2 NA Calcium Level 8.7 mg/dL LOW Bili Total 0.8 mg/dL Alk Phos 80 IU/L AST/SGOT 21 IU/L ALT/SGPT 21.0 IU/L Protein Total 7.5 gm/dL Albumin Level 4.4 gm/dL Globulin 3.1 gm/dL A/G Ratio 1.4 Amylase Level 38.0 unit/L Lipase Level 17.0 IU/L LOW Osmolality 271 mOsm/L NA WBC 5.0 x103/mcL RBC 5.02 x106/mcL Hgb 15.5 gm/dL Hct 43.4 % MCV 86 fL MCH 31 pg MCHC 36 gm/dL RDW 12.4 % Platelet 143 x103/mcL MPV 9.4 fL Auto Neut % 70 % Auto Lymph % 17 % Auto Bartholomew % 12 % Auto Eos % 0.0 % LOW Auto Baso % 0.2 % Neut Abs# 3.5 x103/mcL Lymph Abs# 0.9 x103/mcL LOW Bartholomew Abs# 0.6 x103/mcL Eos Abs# 0.0 x103/mcL Baso Abs# 0.0 x103/mcL Tube Collected Yes Tube Collected Yes.Reexamination/ [id number] patient feels better following Zofran. He denies any further vomiting episodes. I discussed patient's labs were which is within normal limits today. Patient has not given us a urine sample at this time. Patient understands he will need to follow-up either with urgent care whoever is on backup for follow-up appointment. He understands to return to the emergency department for any severe abdominal pain, high fever, vomiting despite medication or any other worsening or concerning symptoms. Patient is given a prescription for Zofran he may take every 8 hours as needed for nausea vomiting. Patient agrees and understands the plan of care.Impression and PlanDiagnosisViral gastroenteritis ([id number] A08.4, Discharge, Medical)PlanCondition: Stable.Disposition: Discharged: Time 08/02/17 13:35:00, to home.Prescriptions: Launch prescriptionsPharmacy:Zofran ODT 4 mg oral tablet, disintegrating (Prescribe): 4 mg, 1 tab(s), PO, q8hr, for 3 day(s), PRN: as needed for nausea/vomiting, 9 tab(s), 0 Refill(s).Patient was given the following educational materials: Viral Gastroenteritis, Adult, Viral Gastroenteritis, Adult.Follow up with: ; Follow up with primary care provider Within 3 to 5 days Please follow-up with your primary care physician in 3-5 days. Retreated today for nausea and vomiting. Your given Zofran here and have lab work completed which was within normal limits. Your given a prescription for Zofran to go home with that he may take every 8 hours as needed for nausea vomiting. Your given follow-up information for Dr. Isaac as he has backup physician today. It is important for you to have primary care physician. You may also follow up with our urgent care for any worsening or concerning symptoms. You should return to the emergency department at 12 any severe abdominal pain, high fever, vomiting despite medication or any other worsening or concerning symptoms.; Yevgeniy Isaac Within 3 to 5 days.Counseled: Patient, Regarding diagnosis, Regarding diagnostic results, Regarding treatment plan, Regarding prescription, Patient indicated understanding of instructions.Notes: 22-year-old male presented to the emergency department today with chief complaint of stomachache nausea vomiting started early this morning. He denied any diarrhea episodes. He denied any recent sick contacts. He denies any recent cold type symptoms. He stated some left epigastric dull discomfort which he feels is most likely due to his vomiting. He states he has been able to tolerate some fluids today. Patient denies any severe abdominal pain chest pain shortness of breath. He denies any history of abdominal surgeries. He does not currently take medication. No medication allergies. On exam patient's abdomen was soft nontender nondistended no rigidity rebound or guarding on exam. No right lower quadrant tenderness. No McBurney's point tenderness. Patient was afebrile and not tachycardic. Patient received Zofran which she stated helped with his nausea. He had no further vomiting episodes. Patient is treated today for viral gastroenteritis in which she is given Dr. Bowman information as he is on backup today. Patient understands that he may also follow up with urgent care for follow-up. Patient understands to return to the emergency department if he does any high fever, abdominal pain, vomiting despite medication or being unable to tolerate fluids. Patient agrees and understands this plan of care..DISCHARGE INFORMATION:Discharge Disposition: HomeDischarge Location: HomePATIENT EDUCATION INFORMATIONInstructions: Viral Gastroenteritis, AdultFollow-Up:With: Address: When:Yevgeniy Isaac [address] [facility], [address] [place] [id number] [facility] (1) Within 3 to 5 daysWith: Address: When:Follow up with primary care provider Within 3 to 5 daysComments:Please follow-up with your primary care physician in 3-5 days. Retreated today for nausea and vomiting. Your given Zofran here and have lab work completed which was within normal limits. Your given a prescription for Zofran to go home with that he may take every 8 hours as needed for nausea vomiting. Your given follow-up information for Dr. Isaac as he has backup physician today. It is important for you to have primary care physician. You may also follow up with our urgent care for any worsening or concerning symptoms. You should return to the emergency department at 12 any severe abdominal pain, high fever, vomiting despite medication or any other worsening or concerning symptoms.DIAGNOSIS:Viral gastroenteritisPatient Understands: Yes - Patient/family/caregiver verbalizes understanding of instructions givenComment: [facility] - [facility] ED Note - Physician Patient: ELLIOTT BETTENCOURT : 22 years Sex: MALE : [birth year]Associated Diagnoses: Viral gastroenteritisAuthor: Lavelle De PA-C InformationTime seen: Date & time 08/02/17 12:38:00.History source: Patient.Arrival mode: Private vehicle.History limitation: None.History of Present [id number] male presented to the emergency today with chief complaint of nausea vomiting abdominal pain. Patient stated this started early this morning with vomiting. He denied any episodes of diarrhea. He states he continued to have nausea and vomiting this morning. He stated some epigastric or left upper quadrant discomfort. He states this is like a stomach ache. He denies any right lower quadrant tenderness. He denies any history of any abdominal surgeries. He denied any fever or chills. He denies any recent contacts with similar symptoms. He denies any cold or cough ear pain sore throat and nasal congestion. He denied any urinary symptoms. He denies any headache dizziness lightheadedness. He states he still has nausea. Patient states that he has been able to tolerate water this morning. He states he does not feel like eating. Patient does not currently take any medications he is not on medication allergies. He does not currently have a primary care provider. He has no other complaints at this time.Review of SystemsConstitutional symptoms: No fever, no chills, no sweats, no weakness, no fatigue.Skin symptoms: No rash,Eye symptoms: Vision unchanged.ENMT symptoms: No ear pain, no sore throat, no nasal congestion.Respiratory symptoms: No shortness of breath, no cough.Cardiovascular symptoms: No chest pain, no palpitations, no tachycardia, no syncope, no diaphoresis, no peripheral edema.Gastrointestinal symptoms: Abdominal pain, mild, achy, nausea, vomiting, no diarrhea, no constipation, no rectal bleeding.Genitourinary symptoms: No dysuria, no hematuria.Musculoskeletal symptoms: No back pain, no Muscle pain, no Joint pain.Neurologic symptoms: No headache, no dizziness, no altered level of consciousness, no numbness, no tingling, no weakness. Additional review of systems information: All other systems reviewed and otherwise negative.Health StatusAllergies:Allergic Reactions (Selected)No Known Medication Allergies.Medications: (Selected)Inpatient MedicationsCompletedAbilify: 10 mg, 2 tab(s), PO, OnceAtivan injection: 2 mg, 1 mL, IM, OnceBenadryl: 25 mg, 1 cap(s), PO, OnceBenadryl: 50 mg, 2 cap(s), PO, OnceGeodon: 10 mg, 0.5 mL, IM, OnceGeodon: 20 mg, 1 mL, IM, OnceHaldol: 5 mg, 1 mL, IM, OnceHaldol: 5 mg, 1 mL, IM, Once, PRN: agitationReglan: 10 mg, 10 mL, PO, OnceVersed: 5 mg, 1 mL, IM, OnceZofran: 4 mg, 1 EA, PO, Oncebacitracin topical: 500 unit(s), 1 elisa, TOP, Oncebacitracin topical: 500 unit(s), 1 elisa, TOP, OncediphenhydrAMINE: 50 mg, 1 mL, IM, Oncemidazolam: 5 mg, 1 mL, IV Push, Oncepotassium bicarbonate: 25 mEq, 1 tab(s), PO, Oncepotassium bicarbonate: 25 mEq, 1 tab(s), PO, OnceDiscontinuedVersed: 10 mg, 2 mL, IM, OncePrescriptionsPrescribedNe xIUM 20 mg oral delayed release capsule: 20 mg, 1 cap(s), PO, Daily, 30 cap(s), 0 Refill(s)CompletedLevaquin 500 mg oral tablet: 500 mg, 1 tab(s), PO, q24hr (int), for 3 day(s), 3 tab(s), 0 Refill(s)Levsin 0.125 mg oral tablet: 0.125 mg, 1 tab(s), PO, QID, PRN: for spasm, 20 tab(s), 0 Refill(s)diphenhydrAMINE 25 mg oral tablet: 25 mg, 1 tab(s), PO, Daily, for 21 day(s), PRN: as needed for nausea/vomiting, 21 tab(s), 0 Refill(s)famotidine 20 mg oral tablet: 20 mg, 1 tab(s), PO, Once a day (at bedtime), for 21 day(s), 21 tab(s), 0 Refill(s)metoclopramide 5 mg/5 mL oral syrup: 10 mg, 10 mL, PO, Daily, for 21 day(s), Take 10 mL with 25 mg of diphenhydramine once daily as needed for upset stomach, PRN: headache, 210 mL, 0 Refill(s)Documented MedicationsDocumentedFLUoxeti ne 10 mg oral capsule: 10 mg, 1 cap(s), PO, qPM, 0 Refill(s)FLUoxetine 20 mg oral capsule: 20 mg, 1 cap(s), PO, qPM, 0 Refill(s).Past Medical/ Family/ Social HistorySocial history:Social & Psychosocial HabitsSubstance Abuse08/12/2016 Risk Assessment: Low Risk08/12/2016 Type: Marijuana Frequency: 1-2 times per month.Physical ExaminationGeneral: Alert, no acute distress.Skin: Warm, dry, intact, no pallor, no rash.Head: Normocephalic, atraumatic.Neck: Supple.Eye: Pupils are equal, round and reactive to light, extraocular movements are intact, normal conjunctiva.Ears, nose, mouth and throat: Oral mucosa moist.Cardiovascular: Regular rate and rhythm, No murmur, Normal peripheral perfusion, No edema.Respiratory: Lungs are clear to auscultation, respirations are non-labored, breath sounds are equal, Symmetrical chest wall expansion, Lungs have clear bilaterally. No wheezing rhonchi or crackles on exam..Chest wall: No tenderness, No deformity.Back: Nontender, Normal range of motion, Normal alignment, no step-offs, No localizing spinal or paraspinal tenderness. No focal deficits. No CVA tenderness..Musculoskeletal: Normal ROM, normal strength, no tenderness, no swelling, no deformity.Gastrointestinal: Soft, Nontender, Non distended, Normal bowel sounds, No organomegaly, Abdomen is soft nontender nondistended. No rigidity rebound or guarding on exam. No right lower quadrant tenderness. No McBurney's point tenderness..Neurological: Alert and oriented to person, place, time, and situation, No focal neurological deficit observed, normal sensory observed, normal motor observed, normal speech observed, normal coordination observed, Normal sensory, motor, speech, coordination is observed on exam..Lymphatics: No lymphadenopathy.Psychiatric: Cooperative, appropriate mood & affect, normal judgment.Medical Decision MakingOrders Launch OrdersLaboratory:Lipase Level (Order): Blood, Stat collect, 08/02/17 12:50 EDT, Lab CollectAmylase Level (Order): Blood, Stat collect, 08/02/17 12:50 EDT, Lab CollectUrinalysis with Culture, if indicated Standard (Order): Urine, Stat collect, 08/02/17 12:50 EDT, Nurse collectCMP Standard (Order): Blood, Stat collect, 08/02/17 12:50 EDT, Lab CollectCBC w/ Auto Diff (Order): Blood, Stat collect, 08/02/17 12:50 EDT, Lab CollectPharmacy:Zofran (Order): 4 mg, PO, Once.Results review: Lab results : Lab Fqitgwrtc68/17/18 12:50 EDT Sodium Level 136.0 mmol/L Potassium Level 3.8 mmol/L Chloride Level 103 mmol/L CO2 27 mmol/L Anion Gap 10.0 mmol/L Glucose Level 100.0 mg/dL BUN 10 mg/dL Creatinine Level 0.99 mg/dL BUN/Creat Ratio 10.0 eGFR AA >60 mL/min/1.73m2 NA eGFR Non AA >60 mL/min/1.73m2 NA Calcium Level 8.7 mg/dL LOW Bili Total 0.8 mg/dL Alk Phos 80 IU/L AST/SGOT 21 IU/L ALT/SGPT 21.0 IU/L Protein Total 7.5 gm/dL Albumin Level 4.4 gm/dL Globulin 3.1 gm/dL A/G Ratio 1.4 Amylase Level 38.0 unit/L Lipase Level 17.0 IU/L LOW Osmolality 271 mOsm/L NA WBC 5.0 x103/mcL RBC 5.02 x106/mcL Hgb 15.5 gm/dL Hct 43.4 % MCV 86 fL MCH 31 pg MCHC 36 gm/dL RDW 12.4 % Platelet 143 x103/mcL MPV 9.4 fL Auto Neut % 70 % Auto Lymph % 17 % Auto Bartholomew % 12 % Auto Eos % 0.0 % LOW Auto Baso % 0.2 % Neut Abs# 3.5 x103/mcL Lymph Abs# 0.9 x103/mcL LOW Bartholomew Abs# 0.6 x103/mcL Eos Abs# 0.0 x103/mcL Baso Abs# 0.0 x103/mcL Tube Collected Yes Tube Collected Yes.Reexamination/ [id number] patient feels better following Zofran. He denies any further vomiting episodes. I discussed patient's labs were which is within normal limits today. Patient has not given us a urine sample at this time. Patient understands he will need to follow-up either with urgent care whoever is on backup for follow-up appointment. He understands to return to the emergency department for any severe abdominal pain, high fever, vomiting despite medication or any other worsening or concerning symptoms. Patient is given a prescription for Zofran he may take every 8 hours as needed for nausea vomiting. Patient agrees and understands the plan of care.Impression and PlanDiagnosisViral gastroenteritis ([id number] A08.4, Discharge, Medical)PlanCondition: Stable.Disposition: Discharged: Time 08/02/17 13:35:00, to home.Prescriptions: Launch prescriptionsPharmacy:Zofran ODT 4 mg oral tablet, disintegrating (Prescribe): 4 mg, 1 tab(s), PO, q8hr, for 3 day(s), PRN: as needed for nausea/vomiting, 9 tab(s), 0 Refill(s).Patient was given the following educational materials: Viral Gastroenteritis, Adult, Viral Gastroenteritis, Adult.Follow up with: ; Follow up with primary care provider Within 3 to 5 days Please follow-up with your primary care physician in 3-5 days. Retreated today for nausea and vomiting. Your given Zofran here and have lab work completed which was within normal limits. Your given a prescription for Zofran to go home with that he may take every 8 hours as needed for nausea vomiting. Your given follow-up information for Dr. Isaac as he has backup physician today. It is important for you to have primary care physician. You may also follow up with our urgent care for any worsening or concerning symptoms. You should return to the emergency department at 12 any severe abdominal pain, high fever, vomiting despite medication or any other worsening or concerning symptoms.; Yevgeniy Isaac Within 3 to 5 days.Counseled: Patient, Regarding diagnosis, Regarding diagnostic results, Regarding treatment plan, Regarding prescription, Patient indicated understanding of instructions.Notes: 22-year-old male presented to the emergency department today with chief complaint of stomachache nausea vomiting started early this morning. He denied any diarrhea episodes. He denied any recent sick contacts. He denies any recent cold type symptoms. He stated some left epigastric dull discomfort which he feels is most likely due to his vomiting. He states he has been able to tolerate some fluids today. Patient denies any severe abdominal pain chest pain shortness of breath. He denies any history of abdominal surgeries. He does not currently take medication. No medication allergies. On exam patient's abdomen was soft nontender nondistended no rigidity rebound or guarding on exam. No right lower quadrant tenderness. No McBurney's point tenderness. Patient was afebrile and not tachycardic. Patient received Zofran which she stated helped with his nausea. He had no further vomiting episodes. Patient is treated today for viral gastroenteritis in which she is given Dr. Bowman information as he is on backup today. Patient understands that he may also follow up with urgent care for follow-up. Patient understands to return to the emergency department if he does any high fever, abdominal pain, vomiting despite medication or being unable to tolerate fluids. Patient agrees and understands this plan of care..[Electronically Signed on: 08/02/2017 13:52 EDT] Lavelle De PA-C[Verified on: 08/02/2017 13:52 EDT] Lavelle De PA-C [facility] ED Patient Education Noteon 08-02-2017 ED Patient Education Note Education MaterialsGastroenterologyVira l Gastroenteritis, AdultViral gastroenteritis is also known as the stomach flu. This condition is caused by various viruses. These viruses can be passed from person to person very easily (are very contagious). This condition may affect your stomach, small intestine, and large intestine. It can cause sudden watery diarrhea, fever, and vomiting. Diarrhea and vomiting can make you feel weak and cause you to become dehydrated. You may not be able to keep fluids down. Dehydration can make you tired and thirsty, cause you to have a dry mouth, and decrease how often you urinate. Older adults and people with other diseases or a weak immune system are at higher risk for dehydration.It is important to replace the fluids that you lose from diarrhea and vomiting. If you become severely dehydrated, you may need to get fluids through an IV tube.What are the causes?Gastroenteritis is caused by various viruses, including rotavirus and norovirus. Norovirus is the most common cause in adults.You can get sick by eating food, drinking water, or touching a surface contaminated with one of these viruses. You can also get sick from sharing utensils or other personal items with an infected person.What increases the risk?This condition is more likely to develop in people:? Who have a weak defense system (immune system).? Who live with one or more children who are younger than 2 years old.? Who live in a usp.? Who go on cruise ships.What are the signs or symptoms?Symptoms of this condition start suddenly 1?2 days after exposure to a virus. Symptoms may last a few days or as long as a week. The most common symptoms are watery diarrhea and vomiting. Other symptoms include:? Fever.? Headache.? Fatigue.? Pain in the abdomen.? Chills.? Weakness.? Nausea.? Muscle aches.? Loss of appetite.How is this diagnosed?This condition is diagnosed with a medical history and physical exam. You may also have a stool test to check for viruses or other infections.How is this treated?This condition typically goes away on its own. The focus of treatment is to restore lost fluids (rehydration). Your health care provider may recommend that you take an oral rehydration solution (ORS) to replace important salts and minerals (electrolytes) in your body. Severe cases of this condition may require giving fluids through an IV tube.Treatment may also include medicine to help with your symptoms.Follow these instructions at home:Follow instructions from your health care provider about how to care for yourself at home.Eating and drinkingFollow these recommendations as told by your health care provider:? Take an ORS. This is a drink that is sold at pharmacies and retail stores.? Drink clear fluids in small amounts as you are able. Clear fluids include water, ice chips, diluted fruit juice, and low-calorie sports drinks.? Eat bland, fsyo-al-amroix foods in small amounts as you are able. These foods include bananas, applesauce, rice, lean meats, toast, and crackers.? Avoid fluids that contain a lot of sugar or caffeine, such as energy drinks, sports drinks, and soda.? Avoid alcohol.? Avoid spicy or fatty foods.General instructions ? Drink enough fluid to keep your urine clear or pale yellow.? Wash your hands often. If soap and water are not available, use hand housekeeper home.? Make sure that all people in your household wash their hands well and often.? Take bqxi-qoz-poydzjm and prescription medicines only as told by your health care provider.? Rest at home while you recover.? Watch your condition for any changes.? Take a warm bath to relieve any burning or pain from frequent diarrhea episodes.? Keep all follow-up visits as told by your health care provider. This is important.Contact a health care provider if:? You cannot keep fluids down.? Your symptoms get worse.? You have new symptoms.? You feel light-headed or dizzy.? You have muscle cramps.Get help right away if:? You have chest pain.? You feel extremely weak or you faint.? You see blood in your vomit.? Your vomit looks like coffee grounds.? You have bloody or black stools or stools that look like tar.? You have a severe headache, a stiff neck, or both.? You have a rash.? You have severe pain, cramping, or bloating in your abdomen.? You have trouble breathing or you are breathing very quickly.? Your heart is beating very quickly.? Your skin feels cold and clammy.? You feel confused.? You have pain when you urinate.? You have signs of dehydration, such as:? Dark urine, very little urine, or no urine.? Cracked lips.? Dry mouth.? Sunken eyes.? Sleepiness.? Weakness.This information is not intended to replace advice given to you by your health care provider. Make sure you discuss any questions you have with your health care provider.Document Released: 04/04/2006 Document Revised: 09/15/2016 Document Reviewed: 12/09/2015Rose Interactive Patient Education ? 2017 amcure. [facility] ED Patient Summaryon 018 ED Patient Summary [facility] - Emergency [id number] [facility] [place] [place] [address] pATIENT DISCHARGE INSTRUCTIONSPatient InformationName: SHAHBAZ BETTENCOURT Age: 22 YearsDate of : [birth year]MRN: [id number] For Visit: Abdominal pain; ABD PAIN, VOMITINGArrival Time: 08/02/17 12:02:00Phone: Primary Care Physician: Provider, NoneAttending Physician: Shahbaz Santos MDComment:Visit Diagnosis:Diagnoses This Visit Abdominal pain ([id number]) Viral gastroenteritis (A08.4)If you received any narcotics, sedation, or any other medication that causes drowsiness for the next 24 hours, unless otherwise directed:? Do not drive a car.? Do not operate machinery such as power tools, lawn mowers, drills, sewing machines, or stoves? Avoid alcoholic beverages and drugs for allergies, nerves, or sleep? Do not make important personal or business decisions or sign any legal documentsWith: Address: When:Yevgeniy Isaac [address], [place] [address] Business (1) Within 3 to 5 daysWith: Address: When:Follow up with primary care provider Within 3 to 5 daysComments:Please follow-up with your primary care physician in 3-5 days. Retreated today for nausea and vomiting. Your given Zofran here and have lab work completed which was within normal limits. Your given a prescription for Zofran to go home with that he may take every 8 hours as needed for nausea vomiting. Your given follow-up information for Dr. Isaac as he has backup physician today. It is important for you to have primary care physician. You may also follow up with our urgent care for any worsening or concerning symptoms. You should return to the emergency department at 12 any severe abdominal pain, high fever, vomiting despite medication or any other worsening or concerning symptoms.Medication Information:The exam and treatment you received today in the [facility] Emergency Department were for an urgent problem and are not intended as complete care. It is important for you to follow up with a doctor, nurse practitioner, or physician?s technical administrative assistant for ongoing care. If your symptoms become worse or you do not improve as expected and you are unable to reach your usual health care provider, you should return to the Emergency Department, we are available 24 hours a day.For those patients who have received Radiology results, the interpretation of your X-ray as given to you by our Emergency Department physician is only a preliminary report. The Radiologist will review your films and if there is a change in the diagnosis you will be notified by phone. Please make sure you have provided a working phone number so we can reach you if necessary.In the event that you had a lab culture while you were a patient in the Emergency Department, you will be notified by phone if there is a need to change your antibiotic. Please make sure you have provided a working phone number so we can reach you if necessary.[facility] Emergency Department has provided you with a complete list of medications post discharge. Please inform your coal hauler/provider of your visit and for further instruction on these medications. Any specific questions regarding your chronic medications and dosages should be discussed with your primary care physician(s) and/or pharmacist. New MedicationsPrinted Prescriptionsondansetron (Zofran ODT 4 mg oral tablet, disintegrating) 1 tab(s) Oral Every 8 hours as needed as needed for nausea/vomiting for 3 Days. Refills: 0.Medications to Continue That Have Not ChangedOther Medicationsesomeprazole (NexIUM 20 mg oral delayed release capsule) 1 cap Oral every day. Refills: 0.FLUoxetine (FLUoxetine 10 mg oral capsule) 1 cap Oral once a day (in the evening).FLUoxetine (FLUoxetine 20 mg oral capsule) 1 cap Oral once a day (in the evening).Visit InformationAllergies:Substanc e Reaction Symptoms Type CommentsNo Known Medication Allergies DrugVital Signs: Vitals and Measurements this Visit (last charted value for your 08/02/2017 visit) Vital Signs This Visit Temperature Oral: 37.1 DegC Peripheral Pulse Rate: 86 bpm Respiratory Rate: 18 br/min Systolic Blood Pressure: 144 mmHg Diastolic Blood Pressure: 89 mmHg SpO2: 99 % Oxygen Therapy: Room air Measurements This Visit Height/Length Dosin.880 cm Height/Length Estimated: 182.880 cm Weight Dosin.790 kg Weight Estimated: 99.790 kgProblems List:Problem Onset CommentsDepressionPatient EducationViral Gastroenteritis, AdultViral gastroenteritis is also known as the stomach flu. This condition is caused by various viruses. These viruses can be passed from person to person very easily (are very contagious). This condition may affect your stomach, small intestine, and large intestine. It can cause sudden watery diarrhea, fever, and vomiting. Diarrhea and vomiting can make you feel weak and cause you to become dehydrated. You may not be able to keep fluids down. Dehydration can make you tired and thirsty, cause you to have a dry mouth, and decrease how often you urinate. Older adults and people with other diseases or a weak immune system are at higher risk for dehydration.It is important to replace the fluids that you lose from diarrhea and vomiting. If you become severely dehydrated, you may need to get fluids through an IV tube.What are the causes?Gastroenteritis is caused by various viruses, including rotavirus and norovirus. Norovirus is the most common cause in adults.You can get sick by eating food, drinking water, or touching a surface contaminated with one of these viruses. You can also get sick from sharing utensils or other personal items with an infected person.What increases the risk?This condition is more likely to develop in people:? Who have a weak defense system (immune system).? Who live with one or more children who are younger than 2 years old.? Who live in a usp.? Who go on cruise ships.What are the signs or symptoms?Symptoms of this condition start suddenly 1?2 days after exposure to a virus. Symptoms may last a few days or as long as a week. The most common symptoms are watery diarrhea and vomiting. Other symptoms include:? Fever.? Headache.? Fatigue.? Pain in the abdomen.? Chills.? Weakness.? Nausea.? Muscle aches.? Loss of appetite.How is this diagnosed?This condition is diagnosed with a medical history and physical exam. You may also have a stool test to check for viruses or other infections.How is this treated?This condition typically goes away on its own. The focus of treatment is to restore lost fluids (rehydration). Your health care provider may recommend that you take an oral rehydration solution (ORS) to replace important salts and minerals (electrolytes) in your body. Severe cases of this condition may require giving fluids through an IV tube.Treatment may also include medicine to help with your symptoms.Follow these instructions at home:Follow instructions from your health care provider about how to care for yourself at home.Eating and drinkingFollow these recommendations as told by your health care provider:? Take an ORS. This is a drink that is sold at pharmacies and retail stores.? Drink clear fluids in small amounts as you are able. Clear fluids include water, ice chips, diluted fruit juice, and low-calorie sports drinks.? Eat bland, mjkl-uc-yeezap foods in small amounts as you are able. These foods include bananas, applesauce, rice, lean meats, toast, and crackers.? Avoid fluids that contain a lot of sugar or caffeine, such as energy drinks, sports drinks, and soda.? Avoid alcohol.? Avoid spicy or fatty foods.General instructions ? Drink enough fluid to keep your urine clear or pale yellow.? Wash your hands often. If soap and water are not available, use hand housekeeper home.? Make sure that all people in your household wash their hands well and often.? Take aeae-icf-tevzkrk and prescription medicines only as told by your health care provider.? Rest at home while you recover.? Watch your condition for any changes.? Take a warm bath to relieve any burning or pain from frequent diarrhea episodes.? Keep all follow-up visits as told by your health care provider. This is important.Contact a health care provider if:? You cannot keep fluids down.? Your symptoms get worse.? You have new symptoms.? You feel light-headed or dizzy.? You have muscle cramps.Get help right away if:? You have chest pain.? You feel extremely weak or you faint.? You see blood in your vomit.? Your vomit looks like coffee grounds.? You have bloody or black stools or stools that look like tar.? You have a severe headache, a stiff neck, or both.? You have a rash.? You have severe pain, cramping, or bloating in your abdomen.? You have trouble breathing or you are breathing very quickly.? Your heart is beating very quickly.? Your skin feels cold and clammy.? You feel confused.? You have pain when you urinate.? You have signs of dehydration, such as:? Dark urine, very little urine, or no urine.? Cracked lips.? Dry mouth.? Sunken eyes.? Sleepiness.? Weakness.This information is not intended to replace advice given to you by your health care provider. Make sure you discuss any questions you have with your health care provider.Document Released: 04/04/2006 Document Revised: 09/15/2016 Document Reviewed: 12/09/2015Rose Interactive Patient Education ? 2017 amcure. Viruses or BacteriaWhat?s got you sick?Antibiotics only treat bacterial infections. Viral illnesses cannot be treated with antibiotics. When an antibiotic is not prescribed, ask your healthcare professional for tips on how to relieve symptoms and feel better. Usual CauseIllnessVirusesBacteria Antibiotic NeededCold/Runny Nose NOBronchitis/Chest Cold (in otherwise healthy children and adults) NOWhooping Cough YesFlu NOStrep Throat YesSore Throat (except strep) NOFluid in the middle ear (otitis media with effusion) NOUrinary Tract Infection YesAntibiotics Aren?t Always the Answerwww.cdc.gov/getsmart GET SMART Know When Antibiotics [place] Department of Health and Human ServicesCenters for Disease Control and Prevention December 2013 Normal [facility] Extra Blueon 08-02-2017 Tube Collected Yes Invalid Interpretation Code [facility] Comment on above: Performed By: #### 5 [id number], [id number], [id number] ####[facility] (DEFAULT)[address] [place] [address] Lipaseon 08-02-2017 Lipase Level 17.0 IU/L Low 22.0-51.0 [facility] Comment on above: Performed By: #### 5 [id number], [id number], [id number] ####[facility] (DEFAULT)[address] [place] [address] Coding Summaryon 03-30-2017 Coding Summary CODING DATE: 017 [facility] STATUS: Discharge/Transfer to Another Hospital PAYOR: Medicaid HMO ADMIT DX: REASON FOR VISIT DX: F41.9 Anxiety disorder, unspecified FINAL DX: PRINCIPAL: F41.9 Anxiety disorder, unspecified SECONDARY: F33.9 Major depressive disorder, recurrent, unspecified E87.6 Hypokalemia F12.90 Cannabis use, unspecified, uncomplicated PROCEDURES DOCTOR NAME DATE NOTE: The code number assigned matches the documented diagnosis and / or procedure in the patient's chart. However, the narrative phrase printed from the coding software may appear abbreviated, or result in slightly different terminology. Coded By: Molly Tamayo Date Saved: 03/30/2017 05:38 am [facility] Coding Summary CODING DATE: 017 [facility] STATUS: Home PAYOR: Medicaid HMO ADMIT DX: REASON FOR VISIT DX: F41.9 Anxiety disorder, unspecified FINAL DX: PRINCIPAL: F41.9 Anxiety disorder, unspecified SECONDARY: F33.9 Major depressive disorder, recurrent, unspecified E87.6 Hypokalemia F12.90 Cannabis use, unspecified, uncomplicated PROCEDURES DOCTOR NAME DATE NOTE: The code number assigned matches the documented diagnosis and / or procedure in the patient's chart. However, the narrative phrase printed from the coding software may appear abbreviated, or result in slightly different terminology. Coded By: Molly Tamayo Date Saved: 03/30/2017 05:39 am [facility] ED Note-Nursingon 03-28-2017 ED Note-Nursing [id number]#[address] [place] [address] Outside Recordson 03-28-2017 Outside Records [id number]#[address] [place] [address] Transfer Noteon 03-28-2017 Transfer Note [id number]#[address] [place] [address] .Auto Diff 1on 03-26-2017 Auto Baso % 0.1 % Low 0.2-2.0 [facility] Comment on above: Performed By: #### 7 171782, [id number], [id number], [id number], [id number], 3481884, 2152861 ####[facility] (DEFAULT)[address] [place] [address] Auto Bartholomew % 6 % Normal 04-29 [facility] Comment on above: Performed By: #### 7 520648, [id number], [id number], [id number], 8552747488, 1180347, 7342947 ####[facility] (DEFAULT)[address] [place] [address] Auto Neut % 76 % Normal 44-88 [facility] Comment on above: Performed By: #### 7 585562, 58661482, [id number], 0144580436, 1650881721, 4106892, 2064712 ####[facility] (DEFAULT)[address] [place] [address] Baso Abs# 0.0 x10 Normal 0.0-0.2 [facility] Comment on above: Performed By: #### 7 451851, 97026527, 0762560375, [id number], 1129320961, 7345165, 4704590 ####[facility] (DEFAULT)[address] [place] [address] Eos Abs# 0.0 x10 Normal 0.0-0.4 [facility] Comment on above: Performed By: #### 7 415776, 08859143, [id number], 3383849737, 9182605866, 1517778, 0040816 ####[facility] (DEFAULT)[address] [place] [address] Eosinophils/100 leukocytes 0.1 % Low 0.9-4.0 [facility] Comment on above: Performed By: #### 7 319132, 04228170, [id number], 2157631385, 1069036916, 8949246, 1780020 ####[facility] (DEFAULT)[address] [place] [address] Lymphocytes 1.8 x10 Normal 1.3-2.9 [facility] Comment on above: Performed By: #### 7 933277, 05991962, 8301519849, 4976342275, 0202461671, 1056629, 9197636 ####[facility] (DEFAULT)[address] [place] [address] Lymphocytes/100 leukocytes 18 % Normal 14-48 [facility] Comment on above: Performed By: #### 7 055929, 59790637, 6433786783, 8436571529, 7463692105, 3547801, 2950782 ####[facility] (DEFAULT)[address] [place] [address] Bartholomew Abs# 0.6 x10 Normal 0.0-0.8 [facility] Comment on above: Performed By: #### 7 433771, 25319796, 9099044589, 2127518519, 7266395221, 1722639, 7129438 ####[facility] (DEFAULT)[address] [place] [address] Neut Abs# 7.7 x10 Normal 1.5-9.2 [facility] Comment on above: Performed By: #### 7 826398, 26586443, 1562230316, 9942073151, 1326723921, 5173907, 7008562 ####[facility] (DEFAULT)[address] [place] [address] Acet Levelon 03-26-2017 Acetaminophen mass conc <10 Normal 10-30 [facility] Comment on above: Performed By: #### 7 296670, 85315272, 7353420515, 7603457625, 9637380586, 5439399, 9006249 ####[facility] (DEFAULT)[address] [place] [address] CBC w/ Auto Diffon 7 Erythrocyte distribution width Auto Ratio (RBC) 12.4 % Normal 11.5-15.0 [facility] Comment on above: Performed By: #### 7 981766, 72615949, 0360144638, 0982083231, 8229541875, 6403406, 5705584 ####[facility] (DEFAULT)[address] [place] [address] Erythrocytes (RBC) 5.36 x10 High 3.70-5.30 [facility] Comment on above: Performed By: #### 7 176164, 96615062, 0807223772, 9453479295, 1672527525, 8900105, 1454253 ####[facility] (DEFAULT)[address] [place] [address] Hematocrit (HCT) 46.3 % Normal 34.8-51.9 [facility] Comment on above: Performed By: #### 7 141417, 22868138, 8272815026, 0571968736, 5513101264, 9809067, 4787658 ####[facility] (DEFAULT)[address] [place] [address] Hemoglobin mass conc (Bld) 16.3 g/dL Normal 11.8-17.7 [facility] Comment on above: Performed By: #### 7 342980, 11313887, 9623462283, 8769566350, 4129310338, 1681041, 5114424 ####[facility] (DEFAULT)[address] [place] [address] Man Diff? Auto Normal [facility] Comment on above: Performed By: #### 7 883008, 00295819, 5999220835, 4971119251, 9282728680, 1794309, 1506645 ####[facility] (DEFAULT)[address] [place] [address] MCH 30 pg Normal 24-34 [facility] Comment on above: Performed By: #### 7 177855, 87475364, 2318273087, 8075978943, 0743165109, 4555328, 2336792 ####[facility] (DEFAULT)[address] [place] [address] MCHC mass conc (RBC) 35 g/dL Normal 26-37 [facility] Comment on above: Performed By: #### 7 642644, 06162894, 5925062753, 5778161419, 6894551408, 0649112, 3555045 ####[facility] (DEFAULT)[address] [place] [address] MCV 86 fL Normal 81-100 [facility] Comment on above: Performed By: #### 7 111723, 60939668, 4255559234, 6273075190, 5296463271, 3901265, 6588997 ####[facility] (DEFAULT)[address] [place] [address] Platelet mean volume (PMV) 9.2 fL Normal 6.3-10.2 [facility] Comment on above: Performed By: #### 7 503888, 94469619, 3505069884, 0269601818, 8255690132, 2903353, 7633588 ####[facility] (DEFAULT)[address] [place] [address] Platelets 213 x10 Normal 138-427 [facility] Comment on above: Performed By: #### 7 122856, 73027981, 0873648187, 7412364971, 6143058665, 7446090, 5268082 ####[facility] (DEFAULT)[address] [place] [address] WBC (Leukocytes) 10.1 x10 Normal 3.5-10.5 [facility] Comment on above: Performed By: #### 7 748349, 04656568, 9711092077, 3956979359, 4482428150, 0799117, 0307676 ####[facility] (DEFAULT)[address] [place] [address] CMP Standardon 03-26-2017 Albumin 4.8 g/dL Normal 3.5-5.0 [facility] Comment on above: Performed By: #### 7 831543, 60055059, 7653709106, 9286539353, 6508125838, 1151826, 3258700 ####[facility] (DEFAULT)[address] [place] [address] Albumin/Globulin Ratio 1.4 {ratio} Normal 1.4-2.6 [facility] Comment on above: Performed By: #### 7 439516, 77284553, 4260544471, 0294201351, 8975440472, 3281859, 5268724 ####[facility] (DEFAULT)[address] [place] [address] Alk Phos 86 IU/L Normal 32-91 [facility] Comment on above: Performed By: #### 7 668087, 88798177, 0693674962, 2972692616, 8837300701, 4216804, 3240159 ####[facility] (DEFAULT)[address] [place] [address] 14383 ALT/SGPT 26.0 IU/L Normal 17.0-63.0 [facility] Comment on above: Performed By: #### 7 150543, 55876678, 8325627366, 6285750016, 5801981793, 7844037, 4907516 ####[facility] (DEFAULT)[address] [place] [address] 88627 Anion gap 12.0 mmol/L Normal 5.0-19.0 [facility] Comment on above: Performed By: #### 7 481103, 03513757, 6017263293, 5412615992, 4662483167, 3247592, 4300577 ####[facility] (DEFAULT)[address] [place] [address] 89773 AST/SGOT 23 IU/L Normal 15-41 [facility] Comment on above: Performed By: #### 7 912134, 21335559, 2118465376, 2306103823, 6395253871, 4865383, 8375569 ####[facility] (DEFAULT)[address] [place] [address] 19283 Bili Total 1.0 mg/dL Normal 0.3-1.2 [facility] Comment on above: Performed By: #### 7 450947, 05734252, 3610301700, 3131795842, 0831523101, 7484828, 2363466 ####[facility] (DEFAULT)[address] [place] [address]76 BUN/Creatinine Ratio 11.0 mg/mg Normal 4.6-16.2 [facility] Comment on above: Performed By: #### 7 [id number], [id number], [id number], [id number], [id number], [id number], [id number] ####[facility] (DEFAULT)[address] [place] [address] 71271 Calcium 9.2 mg/dL Normal 8.9-10.3 [facility] Comment on above: Performed By: #### 7 [id number], [id number], [id number], [id number], [id number], [id number], [id number] ####[facility] (DEFAULT)[address] [place] [address] 24068 Chloride 103 mmol/L Normal 101-111 [facility] Comment on above: Performed By: #### 7 [id number], [id number], [id number], [id number], [id number], [id number], [id number] ####[facility] (DEFAULT)[address] [place] [address] 64979 CO2 26 mmol/L Normal 21-32 [facility] Comment on above: Performed By: #### 7 [id number], [id number], [id number], [id number], [id number], [id number], [id number] ####[facility] (DEFAULT)[address] [place] [address] 53740 Creatinine 0.91 mg/dL Normal 0.90-1.30 [facility] Comment on above: Performed By: #### 7 [id number], [id number], [id number], [id number], [id number], [id number], [id number] ####[facility] (DEFAULT)[address] [place] [address] 84777 eGFR (non-black) mL/min/{1.73_m2} Invalid Interpretation Code [facility] Comment on above: Performed By: #### 7 [id number], [id number], [id number], [id number], [id number], [id number], 7385730 ####[facility] (DEFAULT)[address] [place] [address] 66099 Result Comment: Plaster Block Layer gilda Kidney disease could be indicated at eGFRs of less than 60 ml/min/1.73m2. Kidney Failure is indicated at less than 15 ml/min/1.73m2 Globulin 3.4 g/dL Normal 1.5-4.3 [facility] Comment on above: Performed By: #### 7 644038, [id number], [id number], [id number], [id number], 9390628, [id number] ####[facility] (DEFAULT)[address] [place] [address] 77505 Glucose mass conc 116.0 mg/dL Normal 74.0-118.0 [facility] Comment on above: Performed By: #### 7 407092, [id number], [id number], [id number], [id number], [id number], 7549510 ####[facility] (DEFAULT)[address] [place] [address] 12588 Osmolality 276 mOsm/L Invalid Interpretation Code [facility] Comment on above: Performed By: #### 7 [id number], [id number], [id number], [id number], [id number], 8811074, 6383631 ####[facility] (DEFAULT)[address] [place] [address] 10139 Potassium molar conc 3.2 mmol/L Low 3.6-5.1 [facility] Comment on above: Performed By: #### 7 643959, [id number], [id number], [id number], [id number], [id number], [id number] ####[facility] (DEFAULT)[address] [place] [address] 59430 Protein 8.2 g/dL High 6.5-8.1 [facility] Comment on above: Performed By: #### 7 840868, [id number], [id number], [id number], [id number], 6232831, [id number] ####[facility] (DEFAULT)[address] [place] [address] 90688 Sodium 138.0 mmol/L Normal 136.0-144. 0 [facility] Comment on above: Performed By: #### 7 588112, [id number], [id number], [id number], [id number], 0648181, 5675625 ####[facility] (DEFAULT)[address] [place] [address] 84304 Urea nitrogen 10 mg/dL Normal 8- [facility] Comment on above: Performed By: #### 7 990849, [id number], [id number], [id number], [id number], 0734530, 9883454 ####[facility] (DEFAULT)[address] [place] [address] 19080 ED Clinical Summaryon 12-09- 2017 ED Clinical Summary [facility] [address] [place] [address] ed Clinical SummaryPERSON INFORMATIONName: SHAHBAZ BETTENCOURT Age: 22 Years Sex: MALEDOB: [birth year] MRN: Acct#:Visit Reason: Psychiatric screening exam; Psychiatric screening exam; FACIAL PAIN Arrival:03/26/17 05:29:00 Discharge: 03/26/17 12:10:00LOS: 000 06:41 Check In: 03/26/17 05:29:00 Checkout:03/26/17 12:10:00Address:[address] [facility] [address]MIV: Provider, NonePROVIDER INFORMATIONProvider Role Assigned UnassignedAngela Kenney ED Nurse 03/26/17 05:34:31Rigoberto Rojas MD ED Provider 03/26/17 05:45:00Rona Hunter ED Nurse 03/26/17 07:28:13Gorge Gtz MD ED Provider 03/26/17 08:10:28VITALS INFORMATIONVital Sign Triage LatestTemperature TympanicTemperature Temporal ArteryPulse Rate 90 bpm 80 bpmO2 Sat 100 % 99 %Respiratory RateBlood Pressure 148 mmHg/90 mmHg 148 mmHg/90 mmHgMEDICAL INFORMATIONMedications Given:Medication Dose Routearipiprazole 10 mg POpotassium bicarbonate 25 mEq POhaloperidol 5 mg IMmidazolam 5 mg IV Pushmidazolam 5 mg IMhaloperidol 5 mg IMziprasidone 10 mg IMAllergy Information:No Known Medication AllergiesPHYSICIAN DOCUMENTATIONPatient: SHAHBAZ BETTENCOURT : 22 years Sex: MALE : [birth year]Associated Diagnoses: Anxiety; Major depressive disorder, recurrent episode with anxious distress; Hypokalemia; Marijuana useAuthor: Gorge Gtz MDBasic InformationAdditional information: Chief Complaint from Nursing Triage Note : Chief Hjpmziyol01/09/17 05:30 EST Chief Complaint psych eval (Modified) .History of Present IllnessI had assumed care from previous ER physician. Patient remained stable in the emergency department. He was waiting on mental health counseling for screening.He is medically stable, ready for psychiatric evaluation and treatment.Health StatusAllergies:Allergic Reactions (Selected)No Known Medication Allergies.Medications: (Selected)PrescriptionsPrescr ibedNexIUM 20 mg oral delayed release capsule: 20 mg, 1 cap(s), PO, Daily, 30 cap(s), 0 Refill(s)Documented MedicationsDocumentedFLUoxeti ne 10 mg oral capsule: 10 mg, 1 cap(s), PO, qPM, 0 Refill(s)FLUoxetine 20 mg oral capsule: 20 mg, 1 cap(s), PO, qPM, 0 Refill(s).Past Medical/ Family/ Social HistoryMedical history:No active or resolved past medical history items have been selected or recorded..Surgical history:No active procedure history items have been selected or recorded..Family history:No family history items have been selected or recorded..Social history:Social & Psychosocial HabitsSubstance Abuse08/12/2016 Risk Assessment: Low Risk08/12/2016 Type: Marijuana Frequency: 1-2 times per month.Problem list:Active Problems (1)Depression.Physical Examination Vital SignsVital Signs03/26/17 07:56 EST Peripheral Pulse Rate 80 bpm Systolic Blood Pressure 134 mmHg Diastolic Blood Pressure 80 mmHg SpO2 99 %03/26/17 05:30 EST Temperature Oral 37 DegC Peripheral Pulse Rate 90 bpm Systolic Blood Pressure 148 mmHg HI Diastolic Blood Pressure 90 mmHg SpO2 100 %.Vuehyaxkxycd41/09/17 05:33 EST Weight Dosing 81.650 kg03/26/17 05:33 EST Height/Length Dosing 185.420 cm03/26/17 05:30 EST Height/Length Estimated 185.420 cm Weight Estimated 81.650 kg.Reexamination/ ReevaluationPatient remained stable in the emergency department. He really cooperative. He was accompanied by several [facility]'s deputies.He was screened by mental health counselor. Determined that patient required inpatient treatment.Will be transferred to [facility].Impression and PlanDiagnosisAnxiety (XSD66-VS F41.9, Discharge, Medical)Major depressive disorder, recurrent episode with anxious distress (BEN39-CE F33.9, Discharge, Medical)Hypokalemia (RUH66-BO E87.6, Discharge, Medical)Marijuana use (UEY57-MM F12.90, Discharge, Medical)PlanCondition: Stable.Disposition: Transfer to other location: Time: 03/26/17 09:50:00, time deemed necessary for transfer: 929, Facility name: [facility].Counseled: Patient, Regarding diagnosis, Regarding treatment plan, Regarding prescription.Orders: Launch OrdersAdmit/Transfer/Discharg e:Transfer to: (Order): 03/26/17 09:50 EST, Constant Indicator, [facility] - [facility].AddendumAddendum. 10:15. After patient had found out that he was being transferred to [facility], he became acutely agitated. He states that he will fight. Patient given every option including oral medication as well as reassurance. He declined and refused. Then he became more belligerent. Started spitting, threatening self-harm and harming others. Patient was restrained for his safety and as well as other safety. Patient was given 10 mg of Haldol intramuscularly. 10 mg of Versed intramuscular. Both given at 5 mg increments. In addition, he was given a milligram of Geodon intramuscularly when he did not seem to respond to the other medication previously. As of 1104, patient is currently handcuffed. He had restraints around the ankle to prevent kinking. He had bumped his head against the rail several times, so soft padding applied as well as additional restrained to the thorax area to prevent additional self-harm.Waiting on transport. Patient is verbal, talking, trying to bargain but is not cooperative. When we had tried to leave his supposed discomfort, he took advantage of situation and try to additionally intentionally harming himself or others.Patient: SHAHBAZ BETTENCOURT : 22 years Sex: MALE : [birth year]Associated Diagnoses: Anxiety; Hypokalemia; Marijuana useAuthor: Rigoberto Rojas InformationTime seen: Date & time 03/26/17 05:47:00.Anxiety, out of psychiatric medicationsHistory of Present Kfhlzke66-kqvl-maz white male presents to the emergency room with a police escort. Patient reportedly had punched himself several times in the face about one hour ago. His family/friends called the police who brought him to the emergency room for further evaluation. Patient reports he uses Prozac and Abilify and threw those medications out several days ago because he felt he did not need them anymore. He reports he had thoughts of harming himself and was planning to sleep outside under their trailer. 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 He now punches himself in the face whenever he gets angry.Review of SystemsConstitutional symptoms: No fever, no chills.Respiratory symptoms: No shortness of breath,Cardiovascular symptoms: No chest pain,Gastrointestinal symptoms: No abdominal pain,Neurologic symptoms: No headache,Psychiatric symptoms: Anxiety, Suicidal ideation. Additional review of systems information: All other systems reviewed and otherwise negative.Health StatusAllergies: No known allergies.Medications: (Selected)Documented MedicationsDocumentedFLUoxeti ne 10 mg oral capsule: 10 mg, 1 cap(s), PO, qPM, 0 Refill(s)FLUoxetine 20 mg oral capsule: 20 mg, 1 cap(s), PO, qPM, 0 Refill(s).Physical Examination Vital SignsVital Signs03/26/17 05:30 EST Temperature Oral 37 DegC Peripheral Pulse Rate 90 bpm Systolic Blood Pressure 148 mmHg HI Diastolic Blood Pressure 90 mmHg SpO2 100 %.General: Alert, no acute distress.Skin: Warm, dry, pink.Head: Mild swelling right cheek.Neck: Trachea midline.Eye: Normal conjunctiva.Ears, nose, mouth and throat: Oral mucosa moist.Cardiovascular: Regular rate and rhythm.Respiratory: Respirations are non-labored.Back: Normal range of motion.Musculoskeletal: Normal ROM, normal strength.Neurological: Alert and oriented to person, place, time, and situation, No focal neurological deficit observed, normal motor observed, normal speech observed.Psychiatric: Cooperative, appropriate mood & affect.Medical Decision MakingDifferential Diagnosis: Anxiety, depression, suicide risk, schizophrenia.Rationale: Medical clearance exam initiated.Results review: Lab results : Lab Xfqzabjts68/09/17 06:54 EST Urine Source Clean Catch U Cannab Scrn Positive U Oxycod Scr Negative U Amph Scr Negative U Dede Scr Negative U Benzodia Scr Negative U Cocaine Scr Negative U Methadone Scr Negative U Opiate Scr Negative U Phencyclidine Scr Negative U Propoxyphene Scr Negative U Methamp Scrn Negative U Tricyclic Antidepress Scr Tsgimjua25/09/17 05:51 EST Sodium Level 138.0 mmol/L Potassium Level 3.2 mmol/L LOW Chloride Level 103 mmol/L CO2 26 mmol/L Anion Gap 12.0 mmol/L Glucose Level 116.0 mg/dL BUN 10 mg/dL Creatinine Level 0.91 mg/dL BUN/Creat Ratio 11.0 eGFR AA >60 mL/min/1.73m2 NA eGFR Non AA >60 mL/min/1.73m2 NA Calcium Level 9.2 mg/dL Bili Total 1.0 mg/dL Alk Phos 86 IU/L AST/SGOT 23 IU/L ALT/SGPT 26.0 IU/L Protein Total 8.2 gm/dL HI Albumin Level 4.8 gm/dL Globulin 3.4 gm/dL A/G Ratio 1.4 Osmolality 276 mOsm/L NA TSH 2.43 mcIU/mL WBC 10.1 x103/mcL RBC 5.36 x106/mcL HI Hgb 16.3 gm/dL Hct 46.3 % MCV 86 fL MCH 30 pg MCHC 35 gm/dL RDW 12.4 % Platelet 213 x103/mcL MPV 9.2 fL Auto Neut % 76 % Auto Lymph % 18 % Auto Bartholomew % 6 % Auto Eos % 0.1 % LOW Auto Baso % 0.1 % LOW Neut Abs# 7.7 x103/mcL Lymph Abs# 1.8 x103/mcL Bartholomew Abs# 0.6 x103/mcL Eos Abs# 0.0 x103/mcL Baso Abs# 0.0 x103/mcL Salicylate Lvl <4.0 mg/dL Acetaminoph Lvl <10 mcg/mL Ethanol Level <5.0 mg/dL Tube Collected Yes Tube Collected Yes.Notes: Patient's labs indicate mild hypokalemia which was replaced with oral potassium. He also was noted to have positive tox screen for marijuana. Psychiatry counselor from [place] scheduled to come and evaluate the patient.Impression and PlanDiagnosisAnxiety (FYR47-UT F41.9, Discharge, Medical)Hypokalemia (YQY48-OL E87.6, Discharge, Medical)Marijuana use (RQD22-IP F12.90, Discharge, Medical)PlanDisposition: Patient care transitioned to: Time: 03/26/17 08:03:00, Gorge Gtz MD.DISCHARGE INFORMATION:Discharge Disposition: Discharge/Transfer to Another HospitalDis[facility]PATIENT EDUCATION INFORMATIONInstructions:Joseo w-Up:DIAGNOSIS:Anxiety; Hypokalemia; Major depressive disorder, recurrent episode with anxious distress; Marijuana useComment: [facility] ED Note - Otheron 03-26-2017 ED Note - Other Heidi the [facility] counselor set up transfer to [facility]. accepted patient at 1008.Heidi set up transport with [facility] at 1050, eta one hour.[facility] arrived at 1200 and departed at 1206.Chart was sent with patient.[Electronically Signed on: 03/26/2017 12:11 EST] [facility][Verified on: 03/26/2017 12:11 EST] [facility] ED Note - Physicianon 2016 ED Note - Physician Patient: ELLIOTT BETTENCOURT : 22 years Sex: MALE : [birth year]Associated Diagnoses: Anxiety; Hypokalemia; Marijuana useAuthor: Rigoberto Rojas MDBasi InformationTime seen: Date & time 03/26/17 05:47:00.Anxiety, out of psychiatric medicationsHistory of Present Cvrnivg76-rapw-tsh white male presents to the emergency room with a police escort. Patient reportedly had punched himself several times in the face about one hour ago. His family/friends called the police who brought him to the emergency room for further evaluation. Patient reports he uses Prozac and Abilify and threw those medications out several days ago because he felt he did not need them anymore. He reports he had thoughts of harming himself and was planning to sleep outside under their trailer. 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 He now punches himself in the face whenever he gets angry.Review of SystemsConstitutional symptoms: No fever, no chills.Respiratory symptoms: No shortness of breath,Cardiovascular symptoms: No chest pain,Gastrointestinal symptoms: No abdominal pain,Neurologic symptoms: No headache,Psychiatric symptoms: Anxiety, Suicidal ideation. Additional review of systems information: All other systems reviewed and otherwise negative.Health StatusAllergies: No known allergies.Medications: (Selected)Documented MedicationsDocumentedFLUoxeti ne 10 mg oral capsule: 10 mg, 1 cap(s), PO, qPM, 0 Refill(s)FLUoxetine 20 mg oral capsule: 20 mg, 1 cap(s), PO, qPM, 0 Refill(s).Physical Examination Vital SignsVital Signs03/26/17 05:30 EST Temperature Oral 37 DegC Peripheral Pulse Rate 90 bpm Systolic Blood Pressure 148 mmHg HI Diastolic Blood Pressure 90 mmHg SpO2 100 %.General: Alert, no acute distress.Skin: Warm, dry, pink.Head: Mild swelling right cheek.Neck: Trachea midline.Eye: Normal conjunctiva.Ears, nose, mouth and throat: Oral mucosa moist.Cardiovascular: Regular rate and rhythm.Respiratory: Respirations are non-labored.Back: Normal range of motion.Musculoskeletal: Normal ROM, normal strength.Neurological: Alert and oriented to person, place, time, and situation, No focal neurological deficit observed, normal motor observed, normal speech observed.Psychiatric: Cooperative, appropriate mood & affect.Medical Decision MakingDifferential Diagnosis: Anxiety, depression, suicide risk, schizophrenia.Rationale: Medical clearance exam initiated.Results review: Lab results : Lab Dmytdpkrq08/09/17 06:54 EST Urine Source Clean Catch U Cannab Scrn Positive U Oxycod Scr Negative U Amph Scr Negative U Dede Scr Negative U Benzodia Scr Negative U Cocaine Scr Negative U Methadone Scr Negative U Opiate Scr Negative U Phencyclidine Scr Negative U Propoxyphene Scr Negative U Methamp Scrn Negative U Tricyclic Antidepress Scr Gxzjyacy56/09/17 05:51 EST Sodium Level 138.0 mmol/L Potassium Level 3.2 mmol/L LOW Chloride Level 103 mmol/L CO2 26 mmol/L Anion Gap 12.0 mmol/L Glucose Level 116.0 mg/dL BUN 10 mg/dL Creatinine Level 0.91 mg/dL BUN/Creat Ratio 11.0 eGFR AA >60 mL/min/1.73m2 NA eGFR Non AA >60 mL/min/1.73m2 NA Calcium Level 9.2 mg/dL Bili Total 1.0 mg/dL Alk Phos 86 IU/L AST/SGOT 23 IU/L ALT/SGPT 26.0 IU/L Protein Total 8.2 gm/dL HI Albumin Level 4.8 gm/dL Globulin 3.4 gm/dL A/G Ratio 1.4 Osmolality 276 mOsm/L NA TSH 2.43 mcIU/mL WBC 10.1 x103/mcL RBC 5.36 x106/mcL HI Hgb 16.3 gm/dL Hct 46.3 % MCV 86 fL MCH 30 pg MCHC 35 gm/dL RDW 12.4 % Platelet 213 x103/mcL MPV 9.2 fL Auto Neut % 76 % Auto Lymph % 18 % Auto Bartholomew % 6 % Auto Eos % 0.1 % LOW Auto Baso % 0.1 % LOW Neut Abs# 7.7 x103/mcL Lymph Abs# 1.8 x103/mcL Bartholomew Abs# 0.6 x103/mcL Eos Abs# 0.0 x103/mcL Baso Abs# 0.0 x103/mcL Salicylate Lvl <4.0 mg/dL Acetaminoph Lvl <10 mcg/mL Ethanol Level <5.0 mg/dL Tube Collected Yes Tube Collected Yes.Notes: Patient's labs indicate mild hypokalemia which was replaced with oral potassium. He also was noted to have positive tox screen for marijuana. Psychiatry counselor from [place] scheduled to come and evaluate the patient.Impression and PlanDiagnosisAnxiety (OBB80-JN F41.9, Discharge, Medical)Hypokalemia (JOJ62-SQ E87.6, Discharge, Medical)Marijuana use (SJF83-MW F12.90, Discharge, Medical)PlanDisposition: Patient care transitioned to: Time: 03/26/17 08:03:00, Gorge Gtz MD.[Electronically Signed on: 03/26/2017 07:59 EST] Rigoberto Rojas MD[Verified on: 03/26/2017 07:59 EST] Rigoberto Rojas MD [facility] ED Note - Physician Patient: ELLIOTT BETTENCOURT : 22 years Sex: MALE : [birth year]Associated Diagnoses: Anxiety; Major depressive disorder, recurrent episode with anxious distress; Hypokalemia; Marijuana useAuthor: Gorge Gtz [facility]DBak[facility] InformationAdditional information: Chief Complaint from Nursing Triage Note : Chief Jlgltecfi80/09/17 05:30 EST Chief Complaint psych eval (Modified) .History of Present IllnessI had assumed care from previous ER physician. Patient remained stable in the emergency department. He was waiting on mental health counseling for screening.He is medically stable, ready for psychiatric evaluation and treatment.Health StatusAllergies:Allergic Reactions (Selected)No Known Medication Allergies.Medications: (Selected)PrescriptionsPrescr ibedNexIUM 20 mg oral delayed release capsule: 20 mg, 1 cap(s), PO, Daily, 30 cap(s), 0 Refill(s)Documented MedicationsDocumentedFLUoxeti ne 10 mg oral capsule: 10 mg, 1 cap(s), PO, qPM, 0 Refill(s)FLUoxetine 20 mg oral capsule: 20 mg, 1 cap(s), PO, qPM, 0 Refill(s).Past Medical/ Family/ Social HistoryMedical history:No active or resolved past medical history items have been selected or recorded..Surgical history:No active procedure history items have been selected or recorded..Family history:No family history items have been selected or recorded..Social history:Social & Psychosocial HabitsSubstance Abuse08/12/2016 Risk Assessment: Low Risk08/12/2016 Type: Marijuana Frequency: 1-2 times per month.Problem list:Active Problems (1)Depression.Physical Examination Vital SignsVital Signs03/26/17 07:56 EST Peripheral Pulse Rate 80 bpm Systolic Blood Pressure 134 mmHg Diastolic Blood Pressure 80 mmHg SpO2 99 %03/26/17 05:30 EST Temperature Oral 37 DegC Peripheral Pulse Rate 90 bpm Systolic Blood Pressure 148 mmHg HI Diastolic Blood Pressure 90 mmHg SpO2 100 %.Gstggmlfeowd66/09/17 05:33 EST Weight Dosing 81.650 kg12 05:33 EST Height/Length Dosing 185.420 cm03/26/17 05:30 EST Height/Length Estimated 185.420 cm Weight Estimated 81.650 kg.Reexamination/ ReevaluationPatient remained stable in the emergency department. He really cooperative. He was accompanied by several [employer]'s deputies.He was screened by mental health counselor. Determined that patient required inpatient treatment.Will be transferred to [address]Impression and PlanDiagnosisAnxiety (VJU40-KF F41.9, Discharge, Medical)Major depressive disorder, recurrent episode with anxious distress (BCV62-FZ F33.9, Discharge, Medical)Hypokalemia (OUN97-XO E87.6, Discharge, Medical)Marijuana use (FIQ89-DY F12.90, Discharge, Medical)PlanCondition: Stable.Disposition: Transfer to other location: Time: 03/26/17 09:50:00, time deemed necessary for transfer: 929, Facility name: [facility].Counseled: Patient, Regarding diagnosis, Regarding treatment plan, Regarding prescription.Orders: Launch OrdersAdmit/Transfer/Discharg e:Transfer to: (Order): 03/26/17 09:50 EST, Constant Indicator, [address]AddendumAddendum. 10:15. After patient had found out that he was being transferred to [facility], he became acutely agitated. He states that he will fight. Patient given every option including oral medication as well as reassurance. He declined and refused. Then he became more belligerent. Started spitting, threatening self-harm and harming others. Patient was restrained for his safety and as well as other safety. Patient was given 10 mg of Haldol intramuscularly. 10 mg of Versed intramuscular. Both given at 5 mg increments. In addition, he was given a milligram of Geodon intramuscularly when he did not seem to respond to the other medication previously. As of 1104, patient is currently handcuffed. He had restraints around the ankle to prevent kinking. He had bumped his head against the rail several times, so soft padding applied as well as additional restrained to the thorax area to prevent additional self-harm.Waiting on transport. Patient is verbal, talking, trying to bargain but is not cooperative. When we had tried to leave his supposed discomfort, he took advantage of situation and try to additionally intentionally harming himself or others.[Electronically Signed on: 03/26/2017 09:51 EST] Gorge Gtz MD[Electronically Signed on: 03/26/2017 11:13 EST] Gorge Gtz MD[Verified on: 03/26/2017 09:51 EST] Gorge Gtz MD [facility] ED Note-Nursingon 03-26-2017 ED Note-Nursing Pt presented to the ER via ambulance. chief information security officer with pt. Pt states he was asleep and woke up feeling stressed. Pt states he ran out of his medication. chief information security officer states pt dumped out his medication and was hitting himself in the face with his fist and a shoe. Pt denies suicidal thoughts. Pt is awake and alert. VS are WNL. Lungs clear. Respirations regular, even, unlabored. Pt is calm and cooperative. Pt has swelling to the right side of his face. chief information security officer at bedside. [facility] ED Note-Nursing Pt sitting up in bed . chief information security officer at bedside. VS are WNL. No distress observed. Pt is calm and cooperative. Urine sent to lab. [facility] ED Patient Education Noteon 03-26-2017 ED Patient Education Note Education Materials [facility] ED Patient Summaryon 017 ED Patient Summary [facility] - Emergency [address] [place] [id number] pATIENT DISCHARGE INSTRUCTIONSPatient InformationName: SHAHBAZ BETTENCOURT Age: 22 YearsDate of : [birth year]MRN: [id number] For Visit: Psychiatric screening exam; Psychiatric screening exam; FACIAL PAINArrival Time: 03/26/17 05:29:00Phone: [facility] Care Physician: Provider, NoneAttending Physician: Rigoberto Rojas MDComment:Visit Diagnosis:Diagnoses This Visit Anxiety (F41.9) Hypokalemia (E87.6) Major depressive disorder, recurrent episode with anxious distress (F33.9) Marijuana use (F12.90) Psychiatric screening exam ([id number]) Psychiatric screening exam ([id number])If you received any narcotics, sedation, or any other medication that causes drowsiness for the next 24 hours, unless otherwise directed:? Do not drive a car.? Do not operate machinery such as power tools, lawn mowers, drills, sewing machines, or stoves? Avoid alcoholic beverages and drugs for allergies, nerves, or sleep? Do not make important personal or business decisions or sign any legal documentsMedication Information:The exam and treatment you received today in the [facility] Emergency Department were for an urgent problem and are not intended as complete care. It is important for you to follow up with a doctor, nurse practitioner, or physician?s technical administrative assistant for ongoing care. If your symptoms become worse or you do not improve as expected and you are unable to reach your usual health care provider, you should return to the Emergency Department, we are available 24 hours a day.For those patients who have received Radiology results, the interpretation of your X-ray as given to you by our Emergency Department physician is only a preliminary report. The Radiologist will review your films and if there is a change in the diagnosis you will be notified by phone. Please make sure you have provided a working phone number so we can reach you if necessary.In the event that you had a lab culture while you were a patient in the Emergency Department, you will be notified by phone if there is a need to change your antibiotic. Please make sure you have provided a working phone number so we can reach you if necessary.[facility] Emergency Department has provided you with a complete list of medications post discharge. Please inform your coal hauler/provider of your visit and for further instruction on these medications. Any specific questions regarding your chronic medications and dosages should be discussed with your primary care physician(s) and/or pharmacist. Medications to Continue That Have Not ChangedOther Medicationsesomeprazole (NexIUM 20 mg oral delayed release capsule) 1 cap Oral every day. Refills: 0.FLUoxetine (FLUoxetine 10 mg oral capsule) 1 cap Oral once a day (in the evening).FLUoxetine (FLUoxetine 20 mg oral capsule) 1 cap Oral once a day (in the evening).Visit InformationAllergies:Substanc e Reaction Symptoms Type CommentsNo Known Medication Allergies DrugVital Signs: Vitals and Measurements this Visit (last charted value for your 03/26/2017 visit) Vital Signs This Visit Temperature Oral: 37 DegC Peripheral Pulse Rate: 80 bpm Systolic Blood Pressure: 134 mmHg Diastolic Blood Pressure: 80 mmHg SpO2: 99 % Measurements This Visit Height/Length Dosin.420 cm Height/Length Estimated: 185.420 cm Weight Dosin.650 kg Weight Estimated: 81.650 kgProblems List:Problem Onset CommentsDepressionPatient Education Viruses or BacteriaWhat?s got you sick?Antibiotics only treat bacterial infections. Viral illnesses cannot be treated with antibiotics. When an antibiotic is not prescribed, ask your healthcare professional for tips on how to relieve symptoms and feel better. Usual CauseIllnessVirusesBacteria Antibiotic NeededCold/Runny Nose NOBronchitis/Chest Cold (in otherwise healthy children and adults) NOWhooping Cough YesFlu NOStrep Throat YesSore Throat (except strep) NOFluid in the middle ear (otitis media with effusion) NOUrinary Tract Infection YesAntibiotics Aren?t Always the Answerwww.cdc.gov/getsmart GET SMART Know When Antibiotics [place] Department of Health and Human ServicesCenters for Disease Control and Prevention December 2013 Normal [facility] Ethanol.on 03-26-2017 Ethanol Level <5.0 Normal 0.0-5.0 [facility] Comment on above: Performed By: #### 5 [id number], [id number], [id number] ####[facility] (DEFAULT)[address] [place] [address] Extra Blueon 03-26-2017 Tube Collected Yes Invalid Interpretation Code [facility] Comment on above: Performed By: #### 7 [id number], [id number], [id number], [id number], [id number], [id number], [id number] ####[facility] (DEFAULT)[address] [place] [address] Salicylateon 03-26-2017 Salicylate Lvl <4.0 Normal 0.0-30.0 [facility] Comment on above: Result Comment: Sali cylate ranges less than 30 mg/dL are considered to be therapeutic. Levels greater than 30 mg/dL are considered toxic and levels greater than 60 mg/dL may be lethal. Performed By: #### 7 [id number], [id number], [id number], [id number], [id number], [id number], [id number] ####[facility] (DEFAULT)[address] [place] [address]36 TSH w/ Reflex to FT4on 03-26 Thyroid stimulating hormone (TSH) 2.43 mcIU/mL Normal 0.45-5.33 [facility] Comment on above: Result Comment: Gene ral Population (males and non- females, aged 21-88) 0.45 - 5.33 Females, 1st Trimester 0.05 - 3.70 Females, 2nd Trimester 0.31 - 4.35 Females, 3rd Trimester 0.41 - 5.18 Performed By: #### 7 [id number], [id number], [id number], [id number], [id number], [id number], [id number] ####[facility] (DEFAULT)[address] [place] [address] Transfer Noteon 03-26-2017 Transfer Note [id number]#[id number] Normal [facility] Triage Panel 12on 03-26-2017 Triage Internal Control Pass Normal [facility] Comment on above: Performed By: #### 5 [id number], [id number], [id number] ####[facility] (DEFAULT)[address] [place] [address] 15684 U Amph Scr Negative Normal [facility] Comment on above: Performed By: #### 5 [id number], [id number], [id number] ####[facility] (DEFAULT)[address] [place] [address] U Dede Scr Negative Normal [facility] Comment on above: Performed By: #### 5 [id number], [id number], [id number] ####[facility] (DEFAULT)[address] [place] [address] 979[address] U Benzodia Scr Negative Normal [facility] Comment on above: Performed By: #### 5 [id number], [id number], [id number] ####[facility] (DEFAULT)[address] [place] [address] 59820 U Cannab Scrn Positive Normal [facility] Comment on above: Performed By: #### 5 [id number], [id number], [id number] ####[facility] (DEFAULT)[address] [place] [address]456 U Cocaine Scr Negative Normal [facility] Comment on above: Performed By: #### 5 [id number], [id number], [id number] ####[facility] (DEFAULT)[address] [place] [address] 56[address] U Methadone Scr Negative Normal [facility] Comment on above: Performed By: #### 5 [id number], [id number], [id number] ####[facility] (DEFAULT)[address] [place] [address] 72600 U Methamp Scrn Negative [facility] Comment on above: Performed By: #### 5 [id number], [id number], [id number] ####[facility] (DEFAULT)[address] [place] [address] 74[address] U Opiate Scr Negative Normal [facility] Comment on above: Performed By: #### 5 [id number], [id number], [id number] ####[facility] (DEFAULT)[address] [place] [address] 60344 U Oxycod Scr Negative Normal [facility] Comment on above: Performed By: #### 5 [id number], [id number], [id number] ####[facility] (DEFAULT)[address] [place] [address] 97700 U Phencyclidine Scr Negative Normal [facility] Comment on above: Performed By: #### 5 [id number], [id number], [id number] ####[facility] (DEFAULT)[address] [place] [address] 22441 U Propoxyphene Scr Negative Normal [facility] Comment on above: Performed By: #### 5 [id number], [id number], [id number] ####[facility] (DEFAULT)[address] [place] [address] 68822 U Tricyclic Antidepress Scr Negative Normal [facility] Comment on above: Performed By: #### 5 [id number], [id number], [id number] ####[facility] (DEFAULT)[address] [place] [address] Urine Source Clean Catch [facility] Comment on above: Performed By: #### 5 [id number], [id number], [id number] ####[facility] (DEFAULT)[address] [place] [address] Coding Summaryon 02-21-2017 Coding Summary CODING DATE: 017 [facility] STATUS: Home PAYOR: Medicaid HMO ADMIT DX: REASON FOR VISIT DX: R10.9 Unspecified abdominal pain FINAL DX: PRINCIPAL: K58.9 Irritable bowel syndrome without diarrhea SECONDARY: PROCEDURES DOCTOR NAME DATE NOTE: The code number assigned matches the documented diagnosis and / or procedure in the patient's chart. However, the narrative phrase printed from the coding software may appear abbreviated, or result in slightly different terminology. Revised Coded By: Howard Finley' Revised Date Saved: 12/06/2016 04:36 pm [facility] Coding Summary CODING DATE: 017 [facility] STATUS: Disch /Transfer to Psychiatric Facility PAYOR: Medicaid HMO ADMIT DX: REASON FOR VISIT DX: S60.419A Abrasion of unspecified finger, initial encounter FINAL DX: PRINCIPAL: S60.419A Abrasion of unspecified finger, initial encounter SECONDARY: R45.851 Suicidal ideations W25.XXXA Contact with sharp glass, initial encounter PROCEDURES DOCTOR NAME DATE NOTE: The code number assigned matches the documented diagnosis and / or procedure in the patient's chart. However, the narrative phrase printed from the coding software may appear abbreviated, or result in slightly different terminology. Revised Coded By: Mina Lyles Revised Date Saved: 12/07/2016 09:30 am [facility] Coding Summary CODING DATE: [facility] STATUS: Home PAYOR: Medicaid O ADMIT DX: REASON FOR VISIT DX: S60.419A Abrasion of unspecified finger, initial encounter FINAL DX: PRINCIPAL: S60.419A Abrasion of unspecified finger, initial encounter SECONDARY: R45.851 Suicidal ideations W25.XXXA Contact with sharp glass, initial encounter PROCEDURES DOCTOR NAME DATE NOTE: The code number assigned matches the documented diagnosis and / or procedure in the patient's chart. However, the narrative phrase printed from the coding software may appear abbreviated, or result in slightly different terminology. Revised Coded By: Mina Lyles Revised Date Saved: 12/07/2016 09:32 am [facility] Coding Summaryon 02-08-2017 Coding Summary CODING DATE: [facility] STATUS: Discharged/Transfer Nursing Home Care PAYOR: Medicaid HMO ADMIT DX: REASON FOR VISIT DX: R45.851 Suicidal ideations FINAL DX: PRINCIPAL: R45.851 Suicidal ideations SECONDARY: F32.9 Major depressive disorder, single episode, unspecified S60.511A Abrasion of right hand, initial encounter S50.811A Abrasion of right forearm, initial encounter PROCEDURES DOCTOR NAME DATE NOTE: The code number assigned matches the documented diagnosis and / or procedure in the patient's chart. However, the narrative phrase printed from the coding software may appear abbreviated, or result in slightly different terminology. Coded By: Molly Tamayo Date Saved: 02/08/2017 08:08 am [facility] Coding Summary CODING DATE: [facility] STATUS: Home PAYOR: Medicaid HMO ADMIT DX: REASON FOR VISIT DX: R45.851 Suicidal ideations FINAL DX: PRINCIPAL: R45.851 Suicidal ideations SECONDARY: F32.9 Major depressive disorder, single episode, unspecified S60.811A Abrasion of right wrist, initial encounter S60.511A Abrasion of right hand, initial encounter PROCEDURES DOCTOR NAME DATE NOTE: The code number assigned matches the documented diagnosis and / or procedure in the patient's chart. However, the narrative phrase printed from the coding software may appear abbreviated, or result in slightly different terminology. Coded By: Molly Tamayo Date Saved: 02/08/2017 08:15 am [facility] ED Note - Otheron 02-05-2017 ED Note - Other In patients chart to check if items are scanned in. [Electronically Signed on: 02/05/2017 06:15 EDT] Elder, Lacie [Verified on: 02/05/2017 06:15 EDT] [facility] Clinical Summary [facility] - Emergency [address] [place] [address] ed Clinical SummaryPERSON INFORMATIONName: SHAHBAZ BETTENCOURT Age: 21 Years Sex: MALEDOB: [birth year] MRN: Acct#:Visit Reason: Screening for mental disorders; Arm laceration; SUICIDAL IDEATIONS, HAND/ ARM LACERATIONS, INJURY Arrival:02/03/17 17:27:00 Discharge: 02/04/17 02:20:00LOS: 000 08:53 Check In: 02/03/17 17:27:00 Checkout:02/04/17 02:20:00Address:[address] [facility] [address]AHV: Provider, NonePROVIDER INFORMATIONProvider Role Assigned UnassignedLupillo Scott ED PA 02/03/17 17:30:29Rona Hunter ED Nurse 02/03/17 17:31:59PattYanet garcia ED Nurse 02/03/17 19:40:15VITALS INFORMATIONVital Sign Triage LatestTemperature TympanicTemperature Temporal ArteryPulse Rate 84 bpm 61 bpmO2 Sat 98 % 100 %Respiratory Rate 18 br/min 16 br/minBlood Pressure 139 mmHg/94 mmHg 139 mmHg/94 mmHgMEDICAL INFORMATIONMedications Given:Medication Dose Routeziprasidone 20 mg IMdiphenhydrAMINE 50 mg IMlorazepam 2 mg IMAllergy Information:No Known Medication AllergiesPHYSICIAN DOCUMENTATIONPatient: SHAHBAZ BETTENCOURT : 21 years Sex: MALE : [birth year]Associated Diagnoses: Suicidal ideation; Major depressionAuthor: Rigoberto Rojas MDBasiindio InformationAgitation, suicidal ideationMedical Decision MakingPlease see Jagdeep Jimenes's note for the history and physical exam. I assisted in this patient's care when he became quite agitated and violent in the emergency room. I treated the patient with Geodon 20 mg IM, Benadryl 50 mg IM and Ativan 2 mg IM. Patient medically cleared for incarceration since he became violent and had to be restrained in the emergency room.Reexamination/ ReevaluationTime: 02/03/17 23:42:00 .Interventions: Patient continues to rest comfortably, no distresss, sleeping. .Impression and PlanDiagnosisSuicidal ideation (SVE32-NE R45.851, Discharge, Medical)Major depression (WOP92-BJ F32.9, Discharge, Medical)PlanDisposition: Transfer to other location: Time: 02/03/17 23:01:00, time deemed necessary for transfer: 1726, Facility name: [facility], Accepted by: Dr Harper.Counseled: Patient, Regarding diagnosis, Regarding diagnostic results, Regarding treatment plan, Regarding prescription, Patient indicated understanding of instructions.Notes: Patient medically cleared, satisfactory for transport, vs stable..Patient: SHAHBAZ BETTENCOURT : 21 years Sex: MALE : [birth year]Associated Diagnoses: Risk for suicide; Abrasion of multiple sites of right hand and finger; Abrasion of forearm, rightAuthor: Lupillo ScottBasic InformationTime seen: Date & time 02/03/17 17:52:00.History source: Patient.Arrival mode: Private vehicle.History limitation: None.Additional information: Chief Complaint from Nursing Triage Note : Chief Jlimkakud07/19/17 17:27 EDT Chief Complaint Pt says he got angry and punched a glass windown. Lacerations to right arm/hand. Also he texted girlfriend that he wanted to kill self, but denies this now. .History of Present IllnessPatient is a 21-year-old male who presents to the emergency department with police escort following threats on suicide, seen in room 3. Patient has a past history of suicide ideation, and mental health in the form of depression and sees a psychiatrist at [facility], apparently it was reported that he text of that he was going to kill himself by cutting his wrists to his girlfriend, apparently she came home to check on him, he became irate her they got into an argument and he got mad and punched his hand through the window, causing some superficial lacerations on the right hand, and that apparently he took a piece of glass and cut his forearm superficial again. He reports tetanus vaccination within 5 years, he admits to suicide ideation and occasional IBS type symptoms, but states that he says it a lot but doesn't really mean it, he denies homicide ideation, hallucinations, hearing voices, shortness breath or chest painReview of SystemsConstitutional symptoms: No fever, no chills.Skin symptoms: No rash, no abrasions.Eye symptoms: No discharge, no diplopia, no blurred vision.Respiratory symptoms: No shortness of breath,Cardiovascular symptoms: No chest pain,Gastrointestinal symptoms: Negative except as documented in HPI.Musculoskeletal symptoms: Negative except as documented in HPI.Psychiatric symptoms: Negative except as documented in HPI.Health StatusAllergies:Allergic Reactions (All)No Known Medication AllergiesCanceled/Inactive Reactions (All)No known allergies.Medications: (Selected)PrescriptionsPrescr ibedNexIUM 20 mg oral delayed release capsule: 20 mg, 1 cap(s), PO, Daily, 30 cap(s), 0 Refill(s)Documented MedicationsDocumentedFLUoxeti ne 10 mg oral capsule: 10 mg, 1 cap(s), PO, qPM, 0 Refill(s)FLUoxetine 20 mg oral capsule: 20 mg, 1 cap(s), PO, qPM, 0 Refill(s).Past Medical/ Family/ Social HistoryMedical history:No active or resolved past medical history items have been selected or recorded..Surgical history:No active procedure history items have been selected or recorded..Family history:No family history items have been selected or recorded..Social history:Social & Psychosocial HabitsSubstance Abuse08/12/2016 Risk Assessment: Low Risk08/12/2016 Type: Marijuana Frequency: 1-2 times per month.Problem list:Active Problems (1)Depression.Physical Examination Vital SignsVital Signs02/03/17 17:27 EDT Temperature Temporal 36.6 DegC Peripheral Pulse Rate 84 bpm Respiratory Rate 18 br/min Systolic Blood Pressure 139 mmHg Diastolic Blood Pressure 94 mmHg HI SpO2 98 % Oxygen Therapy Room air.Ruuwvhjuprox51/19/17 17:41 EDT Height/Length Dosing 182.880 cm Weight Dosing 86.180 kg02/03/17 17:27 EDT Height/Length Estimated 182.880 cm Weight Estimated 86.180 kg.General: Alert, no acute distress.Skin: Warm, dry.Head: Normocephalic, atraumatic.Neck: Supple, trachea midline.Eye: Extraocular movements are intact, normal conjunctiva.Cardiovascular: +S1, S2 Regular.Respiratory: Lungs are clear to auscultation, respirations are non-labored, breath sounds are equal.Gastrointestinal: Soft, Nontender, Non distended, Normal bowel sounds, No guarding, no rebound.Musculoskeletal: Patient has superficial abrasions on the dorsum of the right hand, there is a small laceration measures about 1 cm, and technical administrative assistant to the dermis, but deep enough that would benefit from sutures. There are multiple other abrasions on the metacarpal area, and on the forearm there is a long superficial abrasion rather than laceration, which is about 10 inches in length, he has a 2+ radial pulse less than 2 seconds capillary refill in all 5 digits of the right hand.Neurological: Alert and oriented to person, place, time, and situation, No focal neurological deficit observed.Psychiatric: Cooperative, Patient is cooperative, initially he told me that she tested that he wanted to kill himself but did not have a plan, he is here with the Manager Supplier's Department deputy, at which time the deputy reports the patient text he wanted to slit his wrist, he's had multiple suicide attempts or at least ideation, denies homicide ideation, denies any hallucinations visually, or auditory, has a history of depression.Medical Decision MakingDifferential Diagnosis: Depression, suicide risk.Orders Launch OrdersLaboratory:Triage Panel 12 (Order): Urine, Routine collect, 02/03/17 17:53 EDT, Lab Collect, Clean CatchEtOH. (Order): Blood, Stat collect, 02/03/17 17:53 EDT, Lab CollectCMP Standard (Order): Blood, Routine collect, 02/03/17 17:53 EDT, Lab CollectCBC w/ Auto Diff (Order): Blood, Stat collect, 02/03/17 17:53 EDT, Lab CollectAspirin Level (Order): Blood, Routine collect, 02/03/17 17:53 EDT, Lab CollectAcetaminophen Level (Order): Blood, Routine collect, 02/03/17 17:53 EDT, Lab Collect, Launch OrdersPatient Care:Wound Care Routine (Order): 02/03/17 17:56 EDT, Constant orderPharmacy:bacitracin topical (Order): 1 elisa, TOP, Once, Launch OrdersPharmacy:potassium bicarbonate (Order): 25 mEq, PO, Once, Launch OrdersAdmit/Transfer/Discharg e:Transfer to: (Order): 02/03/17 23:03 EDT, Constant Indicator, Patient be transferred to rescue, accepting physician .Results review: Lab results : Lab Rvbvmywcn04/19/17 18:12 EDT Sodium Level 137.0 mmol/L Potassium Level 3.3 mmol/L LOW Chloride Level 101 mmol/L CO2 27 mmol/L Anion Gap 12.0 mmol/L Glucose Level 93.0 mg/dL BUN 12 mg/dL Creatinine Level 0.98 mg/dL BUN/Creat Ratio 12.0 eGFR AA >60 mL/min/1.73m2 NA eGFR Non AA >60 mL/min/1.73m2 NA Calcium Level 9.3 mg/dL Bili Total 1.0 mg/dL Alk Phos 96 IU/L HI AST/SGOT 22 IU/L ALT/SGPT 21.0 IU/L Protein Total 8.1 gm/dL Albumin Level 4.6 gm/dL Globulin 3.5 gm/dL A/G Ratio 1.3 LOW Osmolality 273 mOsm/L NA WBC 9.6 x103/mcL RBC 5.42 x106/mcL HI Hgb 16.4 gm/dL Hct 46.5 % MCV 86 fL MCH 30 pg MCHC 35 gm/dL RDW 12.6 % Platelet 221 x103/mcL MPV 9.1 fL Auto Neut % 64 % Auto Lymph % 28 % Auto Bartholomew % 8 % Auto Eos % 0.6 % LOW Auto Baso % 0.2 % Neut Abs# 6.1 x103/mcL Lymph Abs# 2.6 x103/mcL Bartholomew Abs# 0.8 x103/mcL Eos Abs# 0.1 x103/mcL Baso Abs# 0.0 x103/mcL Salicylate Lvl <4.0 mg/dL Acetaminoph Lvl <10 mcg/mL Ethanol Level <5.0 mg/dL, Lab results : Lab Bkuwryrva79/19/17 21:53 EDT Urine Source Straight Cath U Cannab Scrn Positive U Oxycod Scr Negative U Amph Scr Negative U Dede Scr Negative U Benzodia Scr Positive U Cocaine Scr Negative U Methadone Scr Negative U Opiate Scr Negative U Phencyclidine Scr Negative U Propoxyphene Scr Negative U Methamp Scrn Negative U Tricyclic Antidepress Scr Negative.Reexamination/ ReevaluationPatient is a 21-year-old male who presents to the emergency department for suicide ideation, with possible plan of slitting his wrist, who punched his right hand through window causing some superficial lacerations, then took a piece of glass and scratched his arm in front of his girlfriend. Patient has had multiple episodes of suicide ideation, at this time we'll order laboratory workup for clearance, medically I see no reason he could not be admitted to a higher level of care in regards to psychiatric evaluation. His tetanus is up-to-date, he does not want any sutures on any of the lacerations on his hand, with one only requiring suture, just wants put a Band-Aid over it but it heal on its own which it will I told him that there will be a scar. Patient declined x-ray of his hand to evaluate further regards to foreign body. I did not feel anything with physical exam or cause any increased pain with palpation of the abrasions.Discussed with patient as he was becoming agitated, they were trying to help them, Saying that he makes these threats all the time and it does not mean anything, she started to say that he was not going to be admitted any hospital and that he was wants to go home and walk out of here, he started to get agitated and violent, and actually swung at one of the nurses, the Manager Supplier was here thankfully, discussed with him the situation and to calm down, patient continued to escalate, point where he tried to swing and hit the officer, at that time the officer try to stabilize the patient, he was fighting, myself, and another nurse grabbed the patient and held him along with officer to detain him to prevent him from harming us, we managed put the handcuffs on, and backed away he kept swearing, and complaining about everything in saying that he was going to start hurting people. That time supervising physician came in is going to give him an IM injection Benadryl, and Geodon.Patient kept complaining that the cultures were too tight, I reexamined him, was able to finger between the cough and his wrist on both sides, and less than 2 seconds capillary refill in all 5 digits of both hands, and a 2+ radial pulse bilaterally, [place] police are now here also to help stabilize the situation.Patient's labs returned showing no evidence of acute process other than a mild hypokalemia, at 3.3, will order 25 mg for presents. He is now sedated, and resting comfortably without any outburst, or anger, they wrote to reposition his handcuffs, for comfort. there is a change of shift a police, and another Manager Supplier is here along with [place] [employer] police.Mental health counselor Yarelis here now at 7:40 PM, patient's urinalysis comes back positive for cannabis and benzodiazepine, otherwise unremarkable.Patient is going to be transferred to rescue located in [facility], accepting physician Dr. Thakkar, discussed with supervising physician he will take over care of patient for any issues until patient is transferred. Patient has been sleeping since shortly after receiving the injections, but will wake without any difficulty.Impression and PlanDiagnosisRisk for suicide (DFL36-BG R45.89, Admitting, Medical)Abrasion of multiple sites of right hand and finger (JRL03-QP S60.511A, Discharge, Medical)Abrasion of forearm, right (OGK74-BC S50.811A, Discharge, Medical)PlanCondition: Improved, Stable.Disposition: Transfer to other location: Patient be transferred to rescue, accepting physician .Counseled: Patient, Friend, Regarding diagnosis, Regarding diagnostic results, Regarding treatment plan, Regarding prescription, Patient indicated understanding of instructions.DISCHARGE INFORMATION:Discharge Disposition: Discharged/Transfer Nursing Home CareDischarge Location: [facility] [place] (OTH [facility])PATIENT EDUCATION INFORMATIONInstructions:Follo w-Up:With: Address: When:None Provider Within 3 to 5 daysDIAGNOSIS:Abrasion of forearm, right; Abrasion of multiple sites of right hand and finger; H/O major depression; Major depression; Suicidal ideationComment: [facility] ED Note-Nursingon 02-04-2017 ED Note-Nursing urine sample obtaine d. awaiting results to set up transport. [facility] ED Note-Nursing setting up transport and bed status [facility] ED Note-Nursing pt resting in room sleeping [facility] ED Note-Nursing pt sleeping in room; no complaints at this time [facility] ED Note-Nursing pt sleeping in room. pt woken to ask if he needed to use restroom, pt said no and went back to sleep. [facility] ED Note-Nursing pt taken out of hand cuffs completely and vitals taken. Pt resting in room quietly and stated he was going back to sleep. [facility] ED Note-Nursing pt trasnportation ar rived to take pt to [place] for mental health evaluation. Pt walked out of ED into response vehicle independently and with stable gait. [facility] ED Patient Education Noteon 02-04-2017 ED Patient Education Note Education Materials [facility] ED Patient Summaryon 017 ED Patient Summary [facility] - Emergency [address] [place], [place] [id number] pATIENT DISCHARGE INSTRUCTIONSPatient InformationName: SHAHBAZ BETTENCOURT Age: 21 YearsDate of : [birth year]MRN: [id number] Visit: Screening for mental disorders; Arm laceration; SUICIDAL IDEATIONS, HAND/ ARM LACERATIONS, INJURYArrival Time: 02/03/17 17:27:00Phone: Primary Care Physician: Provider, NoneAttending Physician: Rigoberto Rojas MDComment:Visit Diagnosis:Diagnoses This Visit Abrasion of forearm, right (S50.811A) Abrasion of multiple sites of right hand and finger (S60.511A) Arm laceration ([id number]) H/O major depression (Z86.59) Major depression (F32.9) Risk for suicide (R45.89) Screening for mental disorders ([id number]) Suicidal ideation (R45.851)If you received any narcotics, sedation, or any other medication that causes drowsiness for the next 24 hours, unless otherwise directed:? Do not drive a car.? Do not operate machinery such as power tools, lawn mowers, drills, sewing machines, or stoves? Avoid alcoholic beverages and drugs for allergies, nerves, or sleep? Do not make important personal or business decisions or sign any legal documentsWith: Address: When:None Provider Within 3 to 5 daysMedication Information:The exam and treatment you received today in the [facility] Emergency Department were for an urgent problem and are not intended as complete care. It is important for you to follow up with a doctor, nurse practitioner, or physician?s technical administrative assistant for ongoing care. If your symptoms become worse or you do not improve as expected and you are unable to reach your usual health care provider, you should return to the Emergency Department, we are available 24 hours a day.For those patients who have received Radiology results, the interpretation of your X-ray as given to you by our Emergency Department physician is only a preliminary report. The Radiologist will review your films and if there is a change in the diagnosis you will be notified by phone. Please make sure you have provided a working phone number so we can reach you if necessary.In the event that you had a lab culture while you were a patient in the Emergency Department, you will be notified by phone if there is a need to change your antibiotic. Please make sure you have provided a working phone number so we can reach you if necessary.[facility] Emergency Department has provided you with a complete list of medications post discharge. Please inform your coal hauler/provider of your visit and for further instruction on these medications. Any specific questions regarding your chronic medications and dosages should be discussed with your primary care physician(s) and/or pharmacist. Medications to Continue That Have Not ChangedOther Medicationsesomeprazole (NexIUM 20 mg oral delayed release capsule) 1 cap Oral every day. Refills: 0.FLUoxetine (FLUoxetine 10 mg oral capsule) 1 cap Oral once a day (in the evening).FLUoxetine (FLUoxetine 20 mg oral capsule) 1 cap Oral once a day (in the evening).Visit InformationAllergies:Substanc e Reaction Symptoms Type CommentsNo Known Medication Allergies DrugVital Signs: Vitals and Measurements this Visit (last charted value for your 02/03/2017 visit) Vital Signs This Visit Temperature Temporal: 36.6 DegC Peripheral Pulse Rate: 61 bpm Respiratory Rate: 16 br/min Systolic Blood Pressure: 121 mmHg Diastolic Blood Pressure: 69 mmHg SpO2: 100 % Oxygen Therapy: Room air Measurements This Visit Height/Length Dosin.880 cm Height/Length Estimated: 182.880 cm Weight Dosin.180 kg Weight Estimated: 86.180 kgProblems List:Problem Onset CommentsDepressionPatient Education Viruses or BacteriaWhat?s got you sick?Antibiotics only treat bacterial infections. Viral illnesses cannot be treated with antibiotics. When an antibiotic is not prescribed, ask your healthcare professional for tips on how to relieve symptoms and feel better. Usual CauseIllnessVirusesBacteria Antibiotic NeededCold/Runny Nose NOBronchitis/Chest Cold (in otherwise healthy children and adults) NOWhooping Cough YesFlu NOStrep Throat YesSore Throat (except strep) NOFluid in the middle ear (otitis media with effusion) NOUrinary Tract Infection YesAntibiotics Aren?t Always the Answerwww.cdc.gov/getsmart GET SMART Know When Antibiotics [place] Department of Health and Human ServicesCenters for Disease Control and Prevention December 2013 [facility] Outside Recordson 02-04-2017 Outside Records [id number]#1.00OTGTIFF [facility] Progress Note - Nurseon 01-17 Progress Note - Nurse [id number]#1.00[facility]2017 Transfer Note 0215 - NCMERY arrived 0217 - NCMERY departed to [facility][Electronically Signed on: 02/04/2017 02:19 EDT] Prachi Vega[Verified on: 02/04/2017 02:19 EDT] Gary Prachi [facility] Transfer Note [id number]#1.00OT[facility] 12on 02-04-2017 Triage Internal Control Pass [facility] Comment on above: Performed By: #### 1 [id number] ####[facility] (DEFAULT)[address] [place] [address] U Amph Scr Negative [facility] Comment on above: Performed By: #### 1 [id number] ####[facility] (DEFAULT)[address] [place] [address] U Dede Scr Negative [facility] Comment on above: Performed By: #### 1 [id number] ####[facility] (DEFAULT)[address] [place] [address] U Benzodia Scr Positive [facility] Comment on above: Performed By: #### 1 [id number] ####[facility] (DEFAULT)[address] [place] [address] U Cannab Scrn Positive [facility] Comment on above: Performed By: #### 1 [id number] ####[facility] (DEFAULT)[address] [place] [address] U Cocaine Scr Negative [facility] Comment on above: Performed By: #### 1 [id number] ####[facility] (DEFAULT)[address] [place] [address] U Methadone Scr Negative [facility] Comment on above: Performed By: #### 1 [id number] ####[facility] (DEFAULT)[address] [place] [address] U Methamp Scrn Negative [facility] Comment on above: Performed By: #### 1 [id number] ####[facility] (DEFAULT)[address] [place] [address] U Opiate Scr Negative [facility] Comment on above: Performed By: #### 1 [id number] ####[facility] (DEFAULT)[address] [place] [address] U Oxycod Scr Negative [facility] Comment on above: Performed By: #### 1 [id number] ####[facility] (DEFAULT)[address] [place] [address] 08[address] U Phencyclidine Scr Negative [facility] Comment on above: Performed By: #### 1 [id number] ####[facility] (DEFAULT)[address] [place] [address] 58[address] U Propoxyphene Scr Negative [facility] Comment on above: Performed By: #### 1 [id number] ####[facility] (DEFAULT)[address] [place] [address] 24291 U Tricyclic Antidepress Scr Negative [facility] Comment on above: Performed By: #### 1 [id number] ####[facility] (DEFAULT)[address] [place] [address] 44177 Urine Source Straight Cath [facility] Comment on above: Performed By: #### 1 [id number] ####[facility] (DEFAULT)[address] [place] [address] .Auto Diff 1on - Auto Baso % 0.2 % Normal 0.2-2.0 [facility] Comment on above: Performed By: #### 7 734104, [id number], [id number] ####[facility] (DEFAULT)[address] [place] [address] 00495 Auto Bartholomew % 8 % Normal 1-12 [facility] Comment on above: Performed By: #### 7 983089, [id number], [id number] ####[facility] (DEFAULT)[address] [place] [address] 20393 Auto Neut % 64 % Normal 44-88 [facility] Comment on above: Performed By: #### 7 776398, [id number], [id number] ####[facility] (DEFAULT)[address] [place] [address] 48780 Baso Abs# 0.0 x10 Normal 0.0-0.2 [facility] Comment on above: Performed By: #### 7 098856, [id number], [id number] ####[facility] (DEFAULT)[address] [place] [address] 8[address]40 Eos Abs# 0.1 x10 Normal 0.0-0.4 [facility] Comment on above: Performed By: #### 7 842218, [id number], [id number] ####[facility] (DEFAULT)[address] [place] [address] Eosinophils/100 leukocytes 0.6 % Low 0.9-4.0 [facility] Comment on above: Performed By: #### 7 137203, [id number], [id number] ####[facility] (DEFAULT)[address] [place] [address] Lymphocytes 2.6 x10 Normal 1.3-2.9 [facility] Comment on above: Performed By: #### 7 579089, [id number], [id number] ####[facility] (DEFAULT)[address] [place] [address] 55760 Lymphocytes/100 leukocytes 28 % Normal 14-48 [facility] Comment on above: Performed By: #### 7 234219, [id number], [id number] ####[facility] (DEFAULT)[address] [place] [address] 24110 Bartholomew Abs# 0.8 x10 Normal 0.0-0.8 [facility] Comment on above: Performed By: #### 7 185461, [id number], [id number] ####[facility] (DEFAULT)[address] [place] [address] Neut Abs# 6.1 x10 Normal 1.5-9.2 [facility] Comment on above: Performed By: #### 7 151600, [id number], [id number] ####[facility] (DEFAULT)[address] [place] [address] 42867 Acet Levelon 02-03-2017 Acetaminophen mass conc <10 Normal 10-30 [facility] Comment on above: Performed By: #### 2 [id number], [id number] ####[facility] (DEFAULT)[address] [place] [address] CBC w/ Auto Diffon 7 Erythrocyte distribution width Auto Ratio (RBC) 12.6 % Normal 11.5-15.0 [facility] Comment on above: Performed By: #### 7 923530, [id number], [id number] ####[facility] (DEFAULT)[address] [place] [address] Erythrocytes (RBC) 5.42 x10 High 3.70-5.30 [facility] Comment on above: Performed By: #### 7 821057, [id number], [id number] ####[facility] (DEFAULT)[address] [place] [address] Hematocrit (HCT) 46.5 % Normal 34.8-51.9 [facility] Comment on above: Performed By: #### 7 488250, [id number], [id number] ####[facility] (DEFAULT)[address] [place] [address] 29462 Hemoglobin mass conc (Bld) 16.4 g/dL Normal 11.8-17.7 [facility] Comment on above: Performed By: #### 7 080199, [id number], [id number] ####[facility] (DEFAULT)[address] [place] [address] Man Diff? Auto Normal [facility] Comment on above: Performed By: #### 7 256604, [id number], [id number] ####[facility] (DEFAULT)[address] [place] [address] MCH 30 pg Normal 24-34 [facility] Comment on above: Performed By: #### 7 293222, [id number], [id number] ####[facility] (DEFAULT)[address] [place] [address] 41965 MCHC mass conc (RBC) 35 g/dL Normal 26-37 [facility] Comment on above: Performed By: #### 7 882171, [id number], [id number] ####[facility] (DEFAULT)[address] [place] [address] MCV 86 fL Normal 81-100 [facility] Comment on above: Performed By: #### 7 863801, 28112984, [id number] ####[facility] (DEFAULT)[address] [place] [address] Platelet mean volume (PMV) 9.1 fL Normal 6.3-10.2 [facility] Comment on above: Performed By: #### 7 182314, [id number], [id number] ####[facility] (DEFAULT)[address] [place] [address] Platelets 221 x10 Normal 138-427 [facility] Comment on above: Performed By: #### 7 812872, [id number], [id number] ####[facility] (DEFAULT)[address] [place] [address] WBC (Leukocytes) 9.6 x10 Normal 3.5-10.5 [facility] Comment on above: Performed By: #### 7 465634, [id number], [id number] ####[facility] (DEFAULT)[address] [place] [address] CMP Standardon 02-03-2017 Albumin 4.6 g/dL Normal 3.5-5.0 [facility] Comment on above: Performed By: #### 7 456804, [id number], [id number] ####[facility] (DEFAULT)[address] [place] [address] Albumin/Globulin Ratio 1.3 {ratio} Low 1.4-2.6 [facility] Comment on above: Performed By: #### 7 875500, [id number], [id number] ####[facility] (DEFAULT)[address] [place] [address] Alk Phos 96 IU/L High 32-91 [facility] Comment on above: Performed By: #### 7 681176, 80153995, [id number] ####[facility] (DEFAULT)[address] [place] [address] ALT/SGPT 21.0 IU/L Normal 17.0-63.0 [facility] Comment on above: Performed By: #### 7 803536, [id number], [id number] ####[facility] (DEFAULT)[address] [place] [address] Anion gap 12.0 mmol/L Normal 5.0-19.0 [facility] Comment on above: Performed By: #### 7 814468, 13511644, [id number] ####[facility] (DEFAULT)[address] [place] [address] AST/SGOT 22 IU/L Normal 13-38 [facility] Comment on above: Performed By: #### 7 301013, 35320154, [id number] ####[facility] (DEFAULT)[address] [place] [address] Bili Total 1.0 mg/dL Normal 0.3-1.2 [facility] Comment on above: Performed By: #### 7 352165, [id number], [id number] ####[facility] (DEFAULT)[address] [place] [address] BUN/Creatinine Ratio 12.0 mg/mg Normal 4.6-16.2 [facility] Comment on above: Performed By: #### 7 807908, 12011368, [id number] ####[facility] (DEFAULT)[address] [place] [address] Calcium 9.3 mg/dL Normal 8.9-10.3 [facility] Comment on above: Performed By: #### 7 163572, 73840295, [id number] ####[facility] (DEFAULT)[address] [place] [address] Chloride 101 mmol/L Normal 101-111 [facility] Comment on above: Performed By: #### 7 926918, [id number], [id number] ####[facility] (DEFAULT)[address] [place] [address] CO2 27 mmol/L Normal 21-32 [facility] Comment on above: Performed By: #### 7 230788, 40877909, [id number] ####[facility] (DEFAULT)[address] [place] [address] 81523 Creatinine 0.98 mg/dL Normal 0.90-1.30 [facility] Comment on above: Performed By: #### 7 792828, [id number], [id number] ####[facility] (DEFAULT)[address] [place] [address] 86290 eGFR (non-black) mL/min/{1.73_m2} Invalid Interpretation Code [facility] Comment on above: Performed By: #### 7 261879, [id number], [id number] ####[facility] (DEFAULT)[address] [place] [address] 00758 Result Comment: Plaster Block Layer gilda Kidney disease could be indicated at eGFRs of less than 60 ml/min/1.73m2. Kidney Failure is indicated at less than 15 ml/min/1.73m2 Globulin 3.5 g/dL Normal 1.5-4.3 [facility] Comment on above: Performed By: #### 7 661681, [id number], [id number] ####[facility] (DEFAULT)[address] [place] [address] 44782 Glucose mass conc 93.0 mg/dL Normal 74.0-118.0 [facility] Comment on above: Performed By: #### 7 220728, 75463765, [id number] ####[facility] (DEFAULT)[address] [place] [address] 21395 Osmolality 273 mOsm/L Invalid Interpretation Code [facility] Comment on above: Performed By: #### 7 643059, [id number], [id number] ####[facility] (DEFAULT)[address] [place] [address] 85273 Potassium molar conc 3.3 mmol/L Low 3.6-5.1 [facility] Comment on above: Performed By: #### 7 553868, 46353856, [id number] ####[facility] (DEFAULT)[address] [place] [address] Protein 8.1 g/dL Normal 6.5-8.1 [facility] Comment on above: Performed By: #### 7 635541, [id number], [id number] ####[facility] (DEFAULT)[address] [place] [address] Sodium 137.0 mmol/L Normal 136.0-144. 0 [facility] Comment on above: Performed By: #### 7 217981, 72059926, [id number] ####[facility] (DEFAULT)[address] [place] [address] Urea nitrogen 12 mg/dL Normal 8-26 [facility] Comment on above: Performed By: #### 7 420653, 70912943, [id number] ####[facility] (DEFAULT)[address] [place] [address] Coding Summaryon 02-03-2017 Coding Summary CODING DATE: 017 [facility] STATUS: Home PAYOR: Medicaid HMO ADMIT DX: REASON FOR VISIT DX: R10.13 Epigastric pain FINAL DX: PRINCIPAL: R10.13 Epigastric pain SECONDARY: PROCEDURES DOCTOR NAME DATE NOTE: The code number assigned matches the documented diagnosis and / or procedure in the patient's chart. However, the narrative phrase printed from the coding software may appear abbreviated, or result in slightly different terminology. Coded By: Molly Tamayo Date Saved: 02/03/2017 09:14 am [facility] Coding Summary CODING DATE: 017 [facility] STATUS: Home PAYOR: Medicaid HMO ADMIT DX: REASON FOR VISIT DX: R10.13 Epigastric pain FINAL DX: PRINCIPAL: R10.13 Epigastric pain SECONDARY: PROCEDURES DOCTOR NAME DATE NOTE: The code number assigned matches the documented diagnosis and / or procedure in the patient's chart. However, the narrative phrase printed from the coding software may appear abbreviated, or result in slightly different terminology. Coded By: Molly Tamayo Date Saved: 02/03/2017 09:15 am [facility] ED Note - Otheron 02-03-2017 ED Note - Other [facility] counselor, Yarelis, arrived [Electronically Signed on: 02/03/2017 20:15 EDT] Prachi Vega [Verified on: 02/03/2017 20:15 EDT] Pracih Vega [facility] ED Note - Physicianon 2016 ED Note - Physician Patient: ELLIOTT BETTENCOURT : 21 years Sex: MALE : [birth year]Associated Diagnoses: Risk for suicide; Abrasion of multiple sites of right hand and finger; Abrasion of forearm, rightAuthor: Lupillo ScottBasic InformationTime seen: Date & time 02/03/17 17:52:00.History source: Patient.Arrival mode: Private vehicle.History limitation: None.Additional information: Chief Complaint from Nursing Triage Note : Chief Qbyjzoysz88/19/17 17:27 EDT Chief Complaint Pt says he got angry and punched a glass windown. Lacerations to right arm/hand. Also he texted girlfriend that he wanted to kill self, but denies this now. .History of Present IllnessPatient is a 21-year-old male who presents to the emergency department with police escort following threats on suicide, seen in room 3. Patient has a past history of suicide ideation, and mental health in the form of depression and sees a psychiatrist at [facility], apparently it was reported that he text of that he was going to kill himself by cutting his wrists to his girlfriend, apparently she came home to check on him, he became irate her they got into an argument and he got mad and punched his hand through the window, causing some superficial lacerations on the right hand, and that apparently he took a piece of glass and cut his forearm superficial again. He reports tetanus vaccination within 5 years, he admits to suicide ideation and occasional IBS type symptoms, but states that he says it a lot but doesn't really mean it, he denies homicide ideation, hallucinations, hearing voices, shortness breath or chest painReview of SystemsConstitutional symptoms: No fever, no chills.Skin symptoms: No rash, no abrasions.Eye symptoms: No discharge, no diplopia, no blurred vision.Respiratory symptoms: No shortness of breath,Cardiovascular symptoms: No chest pain,Gastrointestinal symptoms: Negative except as documented in HPI.Musculoskeletal symptoms: Negative except as documented in HPI.Psychiatric symptoms: Negative except as documented in HPI.Health StatusAllergies:Allergic Reactions (All)No Known Medication AllergiesCanceled/Inactive Reactions (All)No known allergies.Medications: (Selected)PrescriptionsPrescr ibedNexIUM 20 mg oral delayed release capsule: 20 mg, 1 cap(s), PO, Daily, 30 cap(s), 0 Refill(s)Documented MedicationsDocumentedFLUoxeti ne 10 mg oral capsule: 10 mg, 1 cap(s), PO, qPM, 0 Refill(s)FLUoxetine 20 mg oral capsule: 20 mg, 1 cap(s), PO, qPM, 0 Refill(s).Past Medical/ Family/ Social HistoryMedical history:No active or resolved past medical history items have been selected or recorded..Surgical history:No active procedure history items have been selected or recorded..Family history:No family history items have been selected or recorded..Social history:Social & Psychosocial HabitsSubstance Abuse08/12/2016 Risk Assessment: Low Risk08/12/2016 Type: Marijuana Frequency: 1-2 times per month.Problem list:Active Problems (1)Depression.Physical Examination Vital SignsVital Signs02/03/17 17:27 EDT Temperature Temporal 36.6 DegC Peripheral Pulse Rate 84 bpm Respiratory Rate 18 br/min Systolic Blood Pressure 139 mmHg Diastolic Blood Pressure 94 mmHg HI SpO2 98 % Oxygen Therapy Room air.Balulrnpxnko77/19/17 17:41 EDT Height/Length Dosing 182.880 cm Weight Dosing 86.180 kg02/03/17 17:27 EDT Height/Length Estimated 182.880 cm Weight Estimated 86.180 kg.General: Alert, no acute distress.Skin: Warm, dry.Head: Normocephalic, atraumatic.Neck: Supple, trachea midline.Eye: Extraocular movements are intact, normal conjunctiva.Cardiovascular: +S1, S2 Regular.Respiratory: Lungs are clear to auscultation, respirations are non-labored, breath sounds are equal.Gastrointestinal: Soft, Nontender, Non distended, Normal bowel sounds, No guarding, no rebound.Musculoskeletal: Patient has superficial abrasions on the dorsum of the right hand, there is a small laceration measures about 1 cm, and technical administrative assistant to the dermis, but deep enough that would benefit from sutures. There are multiple other abrasions on the metacarpal area, and on the forearm there is a long superficial abrasion rather than laceration, which is about 10 inches in length, he has a 2+ radial pulse less than 2 seconds capillary refill in all 5 digits of the right hand.Neurological: Alert and oriented to person, place, time, and situation, No focal neurological deficit observed.Psychiatric: Cooperative, Patient is cooperative, initially he told me that she tested that he wanted to kill himself but did not have a plan, he is here with the [employer] deputy, at which time the deputy reports the patient text he wanted to slit his wrist, he's had multiple suicide attempts or at least ideation, denies homicide ideation, denies any hallucinations visually, or auditory, has a history of depression.Medical Decision MakingDifferential Diagnosis: Depression, suicide risk.Orders Launch OrdersLaboratory:Triage Panel 12 (Order): Urine, Routine collect, 02/03/17 17:53 EDT, Lab Collect, Clean CatchEtOH. (Order): Blood, Stat collect, 02/03/17 17:53 EDT, Lab CollectCMP Standard (Order): Blood, Routine collect, 02/03/17 17:53 EDT, Lab CollectCBC w/ Auto Diff (Order): Blood, Stat collect, 02/03/17 17:53 EDT, Lab CollectAspirin Level (Order): Blood, Routine collect, 02/03/17 17:53 EDT, Lab CollectAcetaminophen Level (Order): Blood, Routine collect, 02/03/17 17:53 EDT, Lab Collect, Launch OrdersPatient Care:Wound Care Routine (Order): 02/03/17 17:56 EDT, Constant orderPharmacy:bacitracin topical (Order): 1 elisa, TOP, Once, Launch OrdersPharmacy:potassium bicarbonate (Order): 25 mEq, PO, Once, Launch OrdersAdmit/Transfer/Discharg e:Transfer to: (Order): 02/03/17 23:03 EDT, Constant Indicator, Patient be transferred to rescue, accepting physician .Results review: Lab results : Lab Xxdznkxmi35/19/17 18:12 EDT Sodium Level 137.0 mmol/L Potassium Level 3.3 mmol/L LOW Chloride Level 101 mmol/L CO2 27 mmol/L Anion Gap 12.0 mmol/L Glucose Level 93.0 mg/dL BUN 12 mg/dL Creatinine Level 0.98 mg/dL BUN/Creat Ratio 12.0 eGFR AA >60 mL/min/1.73m2 NA eGFR Non AA >60 mL/min/1.73m2 NA Calcium Level 9.3 mg/dL Bili Total 1.0 mg/dL Alk Phos 96 IU/L HI AST/SGOT 22 IU/L ALT/SGPT 21.0 IU/L Protein Total 8.1 gm/dL Albumin Level 4.6 gm/dL Globulin 3.5 gm/dL A/G Ratio 1.3 LOW Osmolality 273 mOsm/L NA WBC 9.6 x103/mcL RBC 5.42 x106/mcL HI Hgb 16.4 gm/dL Hct 46.5 % MCV 86 fL MCH 30 pg MCHC 35 gm/dL RDW 12.6 % Platelet 221 x103/mcL MPV 9.1 fL Auto Neut % 64 % Auto Lymph % 28 % Auto Bartholomew % 8 % Auto Eos % 0.6 % LOW Auto Baso % 0.2 % Neut Abs# 6.1 x103/mcL Lymph Abs# 2.6 x103/mcL Bartholomew Abs# 0.8 x103/mcL Eos Abs# 0.1 x103/mcL Baso Abs# 0.0 x103/mcL Salicylate Lvl <4.0 mg/dL Acetaminoph Lvl <10 mcg/mL Ethanol Level <5.0 mg/dL, Lab results : Lab Lbdzvuwdm04/19/17 21:53 EDT Urine Source Straight Cath U Cannab Scrn Positive U Oxycod Scr Negative U Amph Scr Negative U Dede Scr Negative U Benzodia Scr Positive U Cocaine Scr Negative U Methadone Scr Negative U Opiate Scr Negative U Phencyclidine Scr Negative U Propoxyphene Scr Negative U Methamp Scrn Negative U Tricyclic Antidepress Scr Negative.Reexamination/ ReevaluationPatient is a 21-year-old male who presents to the emergency department for suicide ideation, with possible plan of slitting his wrist, who punched his right hand through window causing some superficial lacerations, then took a piece of glass and scratched his arm in front of his girlfriend. Patient has had multiple episodes of suicide ideation, at this time we'll order laboratory workup for clearance, medically I see no reason he could not be admitted to a higher level of care in regards to psychiatric evaluation. His tetanus is up-to-date, he does not want any sutures on any of the lacerations on his hand, with one only requiring suture, just wants put a Band-Aid over it but it heal on its own which it will I told him that there will be a scar. Patient declined x-ray of his hand to evaluate further regards to foreign body. I did not feel anything with physical exam or cause any increased pain with palpation of the abrasions.Discussed with patient as he was becoming agitated, they were trying to help them, Saying that he makes these threats all the time and it does not mean anything, she started to say that he was not going to be admitted any hospital and that he was wants to go home and walk out of here, he started to get agitated and violent, and actually swung at one of the nurses, the Manager Supplier was here thankfully, discussed with him the situation and to calm down, patient continued to escalate, point where he tried to swing and hit the officer, at that time the officer try to stabilize the patient, he was fighting, myself, and another nurse grabbed the patient and held him along with officer to detain him to prevent him from harming us, we managed put the handcuffs on, and backed away he kept swearing, and complaining about everything in saying that he was going to start hurting people. That time supervising physician came in is going to give him an IM injection Benadryl, and Geodon.Patient kept complaining that the cultures were too tight, I reexamined him, was able to finger between the cough and his wrist on both sides, and less than 2 seconds capillary refill in all 5 digits of both hands, and a 2+ radial pulse bilaterally, [place] [employer] police are now here also to help stabilize the situation.Patient's labs returned showing no evidence of acute process other than a mild hypokalemia, at 3.3, will order 25 mg for presents. He is now sedated, and resting comfortably without any outburst, or anger, they wrote to reposition his handcuffs, for comfort. there is a change of shift a police, and another Manager Supplier is here along with [place] [employer] police.Mental health counselor Yarelis here now at 7:40 PM, patient's urinalysis comes back positive for cannabis and benzodiazepine, otherwise unremarkable.Patient is going to be transferred to rescue located in [facility], accepting physician Dr. Thakkar, discussed with supervising physician he will take over care of patient for any issues until patient is transferred. Patient has been sleeping since shortly after receiving the injections, but will wake without any difficulty.Impression and PlanDiagnosisRisk for suicide (RQE67-FK R45.89, Admitting, Medical)Abrasion of multiple sites of right hand and finger (VEA28-BL S60.511A, Discharge, Medical)Abrasion of forearm, right (QRX66-MS S50.811A, Discharge, Medical)PlanCondition: Improved, Stable.Disposition: Transfer to other location: Patient be transferred to rescue, accepting physician .Counseled: Patient, Friend, Regarding diagnosis, Regarding diagnostic results, Regarding treatment plan, Regarding prescription, Patient indicated understanding of instructions.[Electronically Signed on: 02/03/2017 23:04 EDT] Lupillo Scott[Verified on: 02/03/2017 23:04 EDT] Lupillo Scott [facility] ED Note - Physician Patient: ELLIOTT BETTENCOURT : 21 years Sex: MALE : [birth year]Associated Diagnoses: Suicidal ideation; Major depressionAuthor: Rigoberto Rojas MDBasic InformationAgitation, suicidal ideationMedical Decision MakingPlease see Jagdeep Jimenes's note for the history and physical exam. I assisted in this patient's care when he became quite agitated and violent in the emergency room. I treated the patient with Geodon 20 mg IM, Benadryl 50 mg IM and Ativan 2 mg IM. Patient medically cleared for incarceration since he became violent and had to be restrained in the emergency room.Reexamination/ ReevaluationTime: 02/03/17 23:42:00 .Interventions: Patient continues to rest comfortably, no distresss, sleeping. .Impression and PlanDiagnosisSuicidal ideation (HRG72-ZP R45.851, Discharge, Medical)Major depression (PSG69-YU F32.9, Discharge, Medical)PlanDisposition: Transfer to other location: Time: 02/03/17 23:01:00, time deemed necessary for transfer: 1726, Facility name: [facility], Accepted by: Dr Harper.Counseled: Patient, Regarding diagnosis, Regarding diagnostic results, Regarding treatment plan, Regarding prescription, Patient indicated understanding of instructions.Notes: Patient medically cleared, satisfactory for transport, vs stable..[Electronically Signed on: 02/03/2017 18:37 EDT] Rigoberto Rojas MD[Electronically Signed on: 02/03/2017 23:03 EDT] Lupillo Serrano DO[Electronically Signed on: 02/03/2017 23:42 EDT] Lupillo Serrano DO[Verified on: 02/03/2017 18:37 EDT] Rigoberto Rojas MD [facility] ED Note-Nursingon 02-03-2017 ED Note-Nursing Ajay Psych call ed to see pt. Asks to speak with [employer] officer. He updates Rocio, counselor via phone. She will be en route, ETA upt to 1 hour. Report to Jenny Hunter RN. [facility] ED Note-Nursing 1815-Pt agitated. Nu rsing wash house supervisor at bedside. Pt is uncooperative and trying to break phone and glasses. [facility] ED Note-Nursing 1845-Pt put handcuff s per [place] police due to patient attempting to hit staff and police. Pt yelling and fighting with police. Pt unable to control. [facility] ED Note-Nursing 1848-Pt medicated pe r order. Pt remains in handcuffs. Police at bedside. [facility] ED Note-Nursing 1900-Pt having outbu rst and yelling and fighting handcuffs. 3 police at bedside holding patient. [facility] ED Note-Nursing 1920-Pt is calmer an d falling asleep. Police at bedside. Pt remains in handcuffs. [facility] ED Note-Nursing pt to be transferred once urine sample obtained. [facility] ED Note-Nursing Pt resting in room. [facility] Ethanol.on 02-03-2017 Ethanol Level <5.0 Normal 0.0-5.0 [facility] Comment on above: Performed By: #### 2 [id number] ####[facility] (DEFAULT)[address] [place] [address] Salicylateon 02-03-2017 Salicylate Lvl <4.0 Normal 0.0-30.0 [facility] Comment on above: Result Comment: Sali cylate ranges less than 30 mg/dL are considered to be therapeutic. Levels greater than 30 mg/dL are considered toxic and levels greater than 60 mg/dL may be lethal. Performed By: #### 2 [id number] ####[facility] (DEFAULT)[address] [place] [address] .Auto Diff 1on 01-30-2017 Auto Baso % 0.1 % Low 0.2-2.0 [facility] Comment on above: Performed By: #### 1 [id number], [id number], 4488305, 63152164, 9880210, [id number] ####[facility] (DEFAULT)[address] [place] [address] Auto Bartholomew % 9 % Normal 1-12 [facility] Comment on above: Performed By: #### 1 [id number], [id number], 9462831, 83408614, 6964906, [id number] ####[facility] (DEFAULT)[address] [place] [address] Auto Neut % 73 % Normal 44-88 [facility] Comment on above: Performed By: #### 1 [id number], [id number], 1343588, 89617385, 3272353, [id number] ####[facility] (DEFAULT)[address] [place] [address] Baso Abs# 0.0 x10 Normal 0.0-0.2 [facility] Comment on above: Performed By: #### 1 [id number], [id number], 9436518, 88673297, 6240010, [id number] ####[facility] (DEFAULT)[address] [place] [address] Eos Abs# 0.1 x10 Normal 0.0-0.4 [facility] Comment on above: Performed By: #### 1 [id number], [id number], 2773225, 01346322, 4082997, 6550754468 ####[facility] (DEFAULT)[address] [place] [address] Eosinophils/100 leukocytes 1.3 % Normal 0.9-4.0 [facility] Comment on above: Performed By: #### 1 [id number], [id number], 7624902, 95411839, 6845590, 6195588971 ####[facility] (DEFAULT)[address] [place] [address] Lymphocytes 1.6 x10 Normal 1.3-2.9 [facility] Comment on above: Performed By: #### 1 [id number], [id number], 5169926, 22459760, 1088360, 7798499191 ####[facility] (DEFAULT)[address] [place] [address] Lymphocytes/100 leukocytes 17 % Normal 14-48 [facility] Comment on above: Performed By: #### 1 [id number], [id number], 4631081, 42076076, 1857119, 5918715039 ####[facility] (DEFAULT)[address] [place] [address] Bartholomew Abs# 0.9 x10 High 0.0-0.8 [facility] Comment on above: Performed By: #### 1 [id number], 6277863318, 2212253, 85912569, 5413050, [id number] ####[facility] (DEFAULT)[address] [place] [address] 40573 Neut Abs# 6.9 x10 Normal 1.5-9.2 [facility] Comment on above: Performed By: #### 1 [id number], [id number], 6391433, 18752303, 1415269, 8510521089 ####[facility] (DEFAULT)[address] [place] [address] 48387 CBC w/ Auto Diffon 10-15-201 7 Erythrocyte distribution width Auto Ratio (RBC) 12.7 % Normal 11.5-15.0 [facility] Comment on above: Performed By: #### 1 [id number], [id number], 3382684, 60034035, 9967053, 5234537750 ####[facility] (DEFAULT)[address] [place] [address] Erythrocytes (RBC) 5.13 x10 Normal 3.70-5.30 [facility] Comment on above: Performed By: #### 1 [id number], 8915626066, 2749678, 25991720, 0490146, [id number] ####[facility] (DEFAULT)[address] [place] [address] Hematocrit (HCT) 44.2 % Normal 34.8-51.9 [facility] Comment on above: Performed By: #### 1 [id number], 3112894379, 8509118, 10888426, 2828896, 4432185071 ####[facility] (DEFAULT)[address] [place] [address] Hemoglobin mass conc (Bld) 15.8 g/dL Normal 11.8-17.7 [facility] Comment on above: Performed By: #### 1 [id number], 7125112746, 8036149, 97948170, 8535395, 8485538765 ####[facility] (DEFAULT)[address] [place] [address] Man Diff? Auto Normal [facility] Comment on above: Performed By: #### 1 [id number], 7137993844, 7934185, 02208841, 3791625, 1230913328 ####[facility] (DEFAULT)[address] [place] [address] MCH 31 pg Normal 24-34 [facility] Comment on above: Performed By: #### 1 [id number], 3402046859, 1026215, 31854122, 8680110, 9015898450 ####[facility] (DEFAULT)[address] [place] [address] MCHC mass conc (RBC) 36 g/dL Normal 26-37 [facility] Comment on above: Performed By: #### 1 [id number], [id number], 0251406, 16552225, 1437440, 8894965757 ####[facility] (DEFAULT)[address] [place] [address] MCV 86 fL Normal 81-100 [facility] Comment on above: Performed By: #### 1 [id number], 1570573975, 5066989, 64751823, 1793512, 4417193702 ####[facility] (DEFAULT)[address] [place] [address] Platelet mean volume (PMV) 8.8 fL Normal 6.3-10.2 [facility] Comment on above: Performed By: #### 1 [id number], 9367570439, 7970575, 84195512, 7921681, 4717337349 ####[facility] (DEFAULT)[address] [place] [address] Platelets 193 x10 Normal 138-427 [facility] Comment on above: Performed By: #### 1 [id number], 3188264205, 5865840, 55247966, 0767874, 2693092747 ####[facility] (DEFAULT)[address] [place] [address] WBC (Leukocytes) 9.5 x10 Normal 3.5-10.5 [facility] Comment on above: Performed By: #### 1 [id number], 8139420543, 3430881, 01208767, 6677369, 0228502636 ####[facility] (DEFAULT)[address] [place] [address] CMP Standardon 01-30-2017 Albumin 4.3 g/dL Normal 3.5-5.0 [facility] Comment on above: Performed By: #### 1 [id number], 2736804431, 9867147, 49347647, 0159794, 5951804303 ####[facility] (DEFAULT)[address] [place] [address]105 Albumin/Globulin Ratio 1.3 {ratio} Low 1.4-2.6 [facility] Comment on above: Performed By: #### 1 [id number], 7044850137, 8846663, 22964758, 8480702, 8309550138 ####[facility] (DEFAULT)[address] [place] [address] Alk Phos 96 IU/L High 32-91 [facility] Comment on above: Performed By: #### 1 [id number], 1621554978, 3908811, 84327409, 3316398, 1283492086 ####[facility] (DEFAULT)[address] [place] [address] 27159 ALT/SGPT 27.0 IU/L Normal 17.0-63.0 [facility] Comment on above: Performed By: #### 1 [id number], 2850346460, 4828176, 15113618, 3356722, 4031768724 ####[facility] (DEFAULT)[address] [place] [address] Anion gap 10.0 mmol/L Normal 5.0-19.0 [facility] Comment on above: Performed By: #### 1 [id number], 9204351972, 0160688, 41022838, 7290451, 6693425271 ####[facility] (DEFAULT)[address] [place] [address] AST/SGOT 21 IU/L Normal 13-38 [facility] Comment on above: Performed By: #### 1 [id number], 3988542286, 1972886, 23344061, 4975702, 8645105933 ####[facility] (DEFAULT)[address] [place] [address] Bili Total 0.8 mg/dL Normal 0.3-1.2 [facility] Comment on above: Performed By: #### 1 [id number], 8754871402, 2133871, 17215838, 1382948, 7894712454 ####[facility] (DEFAULT)[address] [place] [address] BUN/Creatinine Ratio 11.0 mg/mg Normal 4.6-16.2 [facility] Comment on above: Performed By: #### 1 [id number], 8612976372, 4227881, 55052685, 1263467, 1046855710 ####[facility] (DEFAULT)[address] [place] [address] Calcium 9.0 mg/dL Normal 8.9-10.3 [facility] Comment on above: Performed By: #### 1 [id number], 2558304853, 1015072, 45785048, 1320222, 8058714875 ####[facility] (DEFAULT)[address] [place] [address] Chloride 103 mmol/L Normal 101-111 [facility] Comment on above: Performed By: #### 1 [id number], 4021414593, 5247044, 45049611, 6162192, 0235112189 ####[facility] (DEFAULT)[address] [place] [address] CO2 27 mmol/L Normal 21-32 [facility] Comment on above: Performed By: #### 1 [id number], 5604216656, 6575934, 78460065, 9614615, 5965710209 ####[facility] (DEFAULT)[address] [place] [address] Creatinine 0.81 mg/dL Low 0.90-1.30 [facility] Comment on above: Performed By: #### 1 [id number], 7654596970, 7073438, 14547561, 6393409, 1971155350 ####[facility] (DEFAULT)[address] [place] [address] eGFR (non-black) mL/min/{1.73_m2} Invalid Interpretation Code [facility] Comment on above: Performed By: #### 1 [id number], 1494914216, 9361576, 81047615, 0258847, 2542901112 ####[facility] (DEFAULT)[address] [place] [address] Result Comment: Plaster Block Layer gilda Kidney disease could be indicated at eGFRs of less than 60 ml/min/1.73m2. Kidney Failure is indicated at less than 15 ml/min/1.73m2 Globulin 3.4 g/dL Normal 1.5-4.3 [facility] Comment on above: Performed By: #### 1 [id number], 8189353849, 5508132, 76403472, 7076926, [id number] ####[facility] (DEFAULT)[address] [place] [address] Glucose mass conc 116.0 mg/dL Normal 74.0-118.0 [facility] Comment on above: Performed By: #### 1 [id number], 4635648161, 0894774, 00313584, 4554345, 0926804016 ####[facility] (DEFAULT)[address] [place] [address]992 Osmolality 272 mOsm/L Invalid Interpretation Code [facility] Comment on above: Performed By: #### 1 [id number], 4720507829, 4656810, 27249506, 8467556, [id number] ####[facility] (DEFAULT)[address] [place] [address] 03009 Potassium molar conc 3.7 mmol/L Normal 3.6-5.1 [facility] Comment on above: Performed By: #### 1 [id number], 2485305962, 8194171, 62699357, 1761704, 5413496357 ####[facility] (DEFAULT)[address] [place] [address] Protein 7.7 g/dL Normal 6.5-8.1 [facility] Comment on above: Performed By: #### 1 [id number] ####[facility] (DEFAULT)[address] [place] [address] Sodium 136.0 mmol/L Normal 136.0-144. 0 [facility] Comment on above: Performed By: #### 1 [id number] ####[facility] (DEFAULT)[address] [place] [address]012 Urea nitrogen 9 mg/dL Normal 8-26 [facility] Comment on above: Performed By: #### 1 [id number] ####[facility] (DEFAULT)[address] [place] [id number] ED Clinical Summaryon 2016 ED Clinical Summary [facility] - Emergency [address] [place] [id number] ed Clinical SummaryPERSON INFORMATIONName: SHAHBAZ BETTENCOURT Age: 21 Years Sex: MALEDOB: [birth year] MRN: Acct#:Visit Reason: Abdominal pain; ABDOMINAL PAIN Arrival:01/30/17 07:53:00 Discharge: 01/30/17 09:13:00LOS: 000 01:20 Check In: 01/30/17 07:53:00 Checkout:01/30/17 09:13:00Address:[address] [facility] [id number]: Provider, NonePROVIDER INFORMATIONProvider Role Assigned UnassignedPrachi Reyes ED Nurse 01/30/17 08:10:26Gorge Gtz MD ED Provider 01/30/17 08:37:52VITALS INFORMATIONVital Sign Triage LatestTemperature TympanicTemperature Temporal ArteryPulse Rate 68 bpm 68 bpmO2 Sat 100 % 100 %Respiratory Rate 18 br/min 18 br/minBlood Pressure 134 mmHg/93 mmHg 134 mmHg/93 mmHgMEDICAL INFORMATIONMedications Given:Allergy Information:No known allergiesPHYSICIAN DOCUMENTATIONDISCHARGE INFORMATION:Discharge Disposition: HomeDischarge Location: HomePATIENT EDUCATION INFORMATIONInstructions: Esophageal SpasmFollow-Up:With: Address: When:[facility], [address] [place] [address]/ [address] [place] [address] Business (1) Within 5 to 7 days, only if neededComments:Contact your assigned on-call doctor for a follow-up appointment if you do not have a local family doctor or PCP.Continue with the current treatment as outlined by the ER physician, Dr Gtz.Call the emergency department if you have any questions or concerns regarding your treatment today.Return to the emergency department if you have significant symptoms that concerns you.DIAGNOSIS:Abdominal pain, epigastricComment: Normal [facility] ED Note - Physicianon 2016 ED Note - Physician Patient: ELLIOTT BETTENCOURT : 21 years Sex: MALE : [birth year]Associated Diagnoses: Abdominal pain, epigastricAuthor: Gorge Gtz MDBasic InformationTime seen: Date & time 01/30/17 08:55:00.History source: Patient.Arrival mode: Private vehicle, walking.History limitation: None.Additional information: Chief Complaint from Nursing Triage Note : Chief Gpaqxbvig56/15/17 08:02 EDT Chief Complaint Epigastric pain, after a really big hiccup last night. Patient induced vomiting without relief. .History of Present IllnessThe patient presents with abdominal pain.21-year-old male presented to ER with complaint regarding epigastric abdominal pain. Patient stated that he had onset of symptoms at noon yesterday. He stated that he was finished eating at [employer]. He stated that he had a burp and a hiccup of the same time. That he felt a discomfort at the upper epigastric area, just below the xiphoid. Patient stated that he have persistent symptoms since then. He stated that he had a stuck sensation. He stated that he tried to eat dinner, ate dinner fine but did not change with the symptoms. He had no associated nausea or vomiting or diarrhea. No fevers or chills. He states when he breathes, in and out, there is some excursion of the discomfort. Denies having symptoms like this before. Denies heartburn type symptoms.Review of SystemsConstitutional symptoms: No fever,Skin symptoms: No jaundice,Respiratory symptoms: No shortness of breath,Cardiovascular symptoms: No chest pain,Gastrointestinal symptoms: No nausea, no vomiting, no diarrhea, no constipation.Genitourinary symptoms: No dysuria, no hematuria.Musculoskeletal symptoms: No back pain,Allergy/immunologic symptoms: No food allergies,Health StatusAllergies:Allergic Reactions (Selected)No known allergies.Medications: (Selected)PrescriptionsPrescr ibedLevsin 0.125 mg oral tablet: 0.125 mg, 1 tab(s), PO, QID, PRN: for spasm, 20 tab(s), 0 Refill(s)NexIUM 20 mg oral delayed release capsule: 20 mg, 1 cap(s), PO, Daily, 30 cap(s), 0 Refill(s).Past Medical/ Family/ Social HistoryMedical history:No active or resolved past medical history items have been selected or recorded., Reviewed as documented in chart.Surgical history:No active procedure history items have been selected or recorded., Reviewed as documented in chart.Family history:No family history items have been selected or recorded., Reviewed as documented in chart.Social history:Social & Psychosocial HabitsSubstance Abuse08/12/2016 Risk Assessment: Low Risk08/12/2016 Type: Marijuana Frequency: 1-2 times per month, Reviewed as documented in chart.Problem list:Active Problems (1)Depression, per nurse's notes.Physical Examination Vital SignsVital Signs01/30/17 08:02 EDT Temperature Oral 36.9 DegC Peripheral Pulse Rate 68 bpm Respiratory Rate 18 br/min Systolic Blood Pressure 134 mmHg Diastolic Blood Pressure 93 mmHg HI SpO2 100 % Oxygen Therapy Room air.Qgjclfuokgrs58/15/17 08:05 EDT Weight Dosing 92.990 kg01/30/17 08:05 EDT Height/Length Dosing 182.880 cm01/30/17 08:02 EDT Height/Length Estimated 182.880 cm Weight Estimated 92.990 kg.General: Alert, no acute distress, Age-appropriate, normal developed 21-year-old male, no distress..Skin: Warm, dry, intact, normal for ethnicity.Head: Normocephalic, atraumatic.Neck: Supple, trachea midline, no tenderness.Eye: Extraocular movements are intact, normal conjunctiva.Ears, nose, mouth and throat: Tympanic membranes clear, oral mucosa moist, no pharyngeal erythema or exudate.Cardiovascular: Regular rate and rhythm, No murmur, Normal peripheral perfusion, No edema.Respiratory: Lungs are clear to auscultation, respirations are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 by me and emergency department was 98.5.Impression and PlanDiagnosisMultiple abrasions ([id number] T14.8, Discharge, Medical)Suicidal ideation ([id number] R45.851, Discharge, Medical)PlanCondition: Stable.Disposition: Transfer to other location.Prescriptions: Launch prescriptionsLaboratory:Triag e Panel 12 (Order): Urine, Stat collect, 11/30/16 16:52 EDT, Nurse collect, Clean CatchSalicylate Level (Order): Blood, Stat collect, 11/30/16 16:52 EDT, Lab CollectAcetaminophen Level (Order): Blood, Stat collect, 11/30/16 16:52 EDT, Lab CollectEthanol Level. (Order): Blood, Stat collect, 11/30/16 16:52 EDT, Lab CollectComprehensive Metabolic Panel Standard (Order): Blood, Stat collect, 11/30/16 16:52 EDT, Lab CollectCBC w/ Auto Diff (Order): Blood, Stat collect, 11/30/16 16:52 EDT, Lab Collect, Launch prescriptionsPatient Care:Wound Care Routine (Order): 11/30/16 17:12 EDT, Constant orderPharmacy:bacitracin topical (Order): 1 elisa, TOP, Once, Launch prescriptionsPharmacy:Benadry l (Order): 50 mg, PO, Once, Launch prescriptionsAdmit/Transfer/D ischarge:Transfer to: (Order): 11/30/16 20:58 EDT, Constant Indicator, Rescue crisis.Limitations: Limited activity, Limited work, No heavy lifting.Follow up with: None Provider Within 3 to 5 days.Counseled: Patient, Regarding diagnosis, Regarding diagnostic results, Regarding treatment plan, Patient indicated understanding of instructions.[Electronically Signed on: 11/30/2016 21:04 EDT] LISANDRO HOLLOWAY[Verified on: 11/30/2016 21:04 EDT] LISANDRO HOLLOWAY [facility] ED Note-Nursingon 11-30-2016 ED Note-Nursing pt up to the restroo m, urine sample taken to lab [facility] ED Note-Nursing pt's wound cleansed with sterile saline and chlorohexadine. applied bacitracin. pt waiting for [facility] counselor. no other needs identified at this time. [facility] ED Note-Nursing Pt sitting on floor in room, no s/s of distress, refuses to speak to or acknowledge nurse, sitter in room, will continue to monitor. [facility] Ethanol.on 11-30-2016 Ethanol Level <5.0 Normal 0.0-5.0 [facility] Comment on above: Performed By: #### 5 [id number], [id number], [id number] ####[facility] (DEFAULT)[address] [place] [address] Extra Blueon 11-30-2016 Tube Collected Yes Invalid Interpretation Code [facility] Comment on above: Performed By: #### 5 [id number], [id number], [id number] ####[facility] (DEFAULT)[address] [place] [address] Salicylateon 11-30-2016 Salicylate Lvl <4.0 Normal 0.0-30.0 [facility] Comment on above: Result Comment: Sali cylate ranges less than 30 mg/dL are considered to be therapeutic. Levels greater than 30 mg/dL are considered toxic and levels greater than 60 mg/dL may be lethal. Performed By: #### 5 [id number], [id number], [id number] ####[facility] (DEFAULT)[address] [place] [address] Transfer Noteon 11-30-2016 Transfer Note 2030 - Dr. Nichols, psychiatrist, @ [facility] accepted this patient for [id number] - transport was arranged by the [facility] Counselor...[facility] and had many hours for an [id number] - [facility] was called ....eta is 1 hour....[facility] and was cancelled[Electronically Signed on: 11/30/2016 21:46 EDT] Prachi Vega[Verified on: 11/30/2016 21:46 EDT] Prachi Vega [facility] Triage Panel 12on 11-30-2016 Triage Internal Control Pass [facility] Comment on above: Performed By: #### 5 [id number], [id number], [id number] ####[facility] (DEFAULT)[address] [place] [address] U Amph Scr Negative [facility] Comment on above: Performed By: #### 5 [id number], [id number], [id number] ####[facility] (DEFAULT)[address] [place] [address] 55431 U Dede Scr Negative [facility] Comment on above: Performed By: #### 5 [id number], [id number], [id number] ####[facility] (DEFAULT)[address] [place] [address] 20038 U Benzodia Scr Negative [facility] Comment on above: Performed By: #### 5 [id number], [id number], [id number] ####[facility] (DEFAULT)[address] [place] [address] 46199 U Cannab Scrn Positive [facility] Comment on above: Performed By: #### 5 [id number], [id number], [id number] ####[facility] (DEFAULT)[address] [place] [address] 45610 U Cocaine Scr Negative [facility] Comment on above: Performed By: #### 5 [id number], [id number], [id number] ####[facility] (DEFAULT)[address] [place] [address] 12590 U Methadone Scr Negative [facility] Comment on above: Performed By: #### 5 [id number], [id number], [id number] ####[facility] (DEFAULT)[address] [place] [address] 26504 U Methamp Scrn Negative [facility] Comment on above: Performed By: #### 5 [id number], [id number], [id number] ####[facility] (DEFAULT)[address] [place] [address] 90090 U Opiate Scr Negative Normal [facility] Comment on above: Performed By: #### 5 [id number], [id number], [id number] ####[facility] (DEFAULT)[address] [place] [address] 02125 U Oxycod Scr Negative [facility] Comment on above: Performed By: #### 5 [id number], [id number], [id number] ####[facility] (DEFAULT)[address] [place] [address] 49687 U Phencyclidine Scr Negative Normal [facility] Comment on above: Performed By: #### 5 [id number], [id number], [id number] ####[facility] (DEFAULT)[address] [place] [address] 32484 U Propoxyphene Scr Negative Normal [facility] Comment on above: Performed By: #### 5 [id number], [id number], [id number] ####[facility] (DEFAULT)[address] [place] [address] 28757 U Tricyclic Antidepress Scr Negative Normal [facility] Comment on above: Performed By: #### 5 [id number], [id number], [id number] ####[facility] (DEFAULT)[address] [place] [address] 94696 Urine Source Clean Catch Normal [facility] Comment on above: Performed By: #### 5 [id number], [id number], [id number] ####[facility] (DEFAULT)[address] [place] [address] 55375 ED Clinical Summaryon 2016 ED Clinical Summary [facility] - Emergency [address] [place] [address]373 ed Clinical SummaryPERSON INFORMATIONName: SHAHBAZ BETTENCOURT Age: 21 Years Sex: MALEDOB: [birth year] MRN: Acct#:Visit Reason: Abdominal pain; Abdominal pain; ABD PAIN Arrival:11/29/16 06:27:00 Discharge: 11/29/16 09:00:00LOS: 000 02:33 Check In: 11/29/16 06:27:00 Checkout:11/29/16 09:00:00Address:[address] [facility] [address]DUW: Provider, NonePROVIDER INFORMATIONProvider Role Assigned UnassignedDonna Fletcher RN ED Nurse 11/29/16 06:39:43 11/29/16 07:03:12Lupillo Serrano DO ED Provider 11/29/16 06:48:13SoRachid blake ED Nurse 11/29/16 07:03:13VITALS INFORMATIONVital Sign Triage LatestTemperature Tympanic 36.8 DegC 36.8 DegCTemperature Temporal ArteryPulse Rate 71 bpm 71 bpmO2 Sat 98 % 98 %Respiratory Rate 18 br/min 18 br/minBlood Pressure 136 mmHg/86 mmHg 136 mmHg/86 mmHgMEDICAL INFORMATIONMedications Given:Allergy Information:No known allergiesPHYSICIAN DOCUMENTATIONDISCHARGE INFORMATION:Discharge Disposition: HomeDischarge Location: HomePATIENT EDUCATION INFORMATIONInstructions: Irritable Bowel Syndrome, AdultFollow-Up:With: Address: When:Hannah Valverde [address] [address] Business (1) Within 3 to 5 daysComments:homewe have refill the Nexium script in case you think you might need themwe have given you a prescription for Levsin, which is provided to relieve the feeling of bowel spasm that you have had for a couple yearsif this does not work then you will need additional testing.your provider on your card is Hannah Valverde, who can further order testing as needed. Call her office to optain an appointment.Take the antibiotic for the urine for three days, to be sure there is no urinary tract infection; Check the results with the ER or Ms Valverde in three days.You are welcomed to return anytimeT H LIYA< ER PHYSICIAN< [facility] CenterDIAGNOSIS:Irritable bowel syndromeComment: Normal [facility] ED Note - Physicianon 2016 ED Note - Physician Patient: ELLIOTT BETTENCOURT : 21 years Sex: MALE : [birth year]Associated Diagnoses: Irritable bowel syndromeAuthor: Lupillo Serrano InformationTime seen: Date & time 11/29/16 06:50:00.History source: Patient.Arrival mode: Private vehicle.History limitation: None.History of Present IllnessThe patient presents with abdominal pain.Review of SystemsConstitutional symptoms: ABD PAIN, 1.5 YEARS-2 YEARS, MID LOW ABD, COMES AND GOES AM, SOMETIMES WAKES HIM, NO RADIATIOIN, ONCE ASSOCIATED WITH VOMITING, NO DIARRHEA, BOWEL MOVEMENT DOES NOT NECESSARY RELIEVE THE DISCOMFORT, BUT SPONT RESOLVES AFTER 15-30 MIN, USUALLY WILL NOT RECUR DURING THE DAY;HAS NOT SEEN A PHYSICIAN FOR HIS, BUT HAS BEEN HERE TO THE HOSPITAL FOR OTHER THINGS, INCLUDING A VISIT EARLIER THIS YEAR, IN WHICH HE HAD AN EVALUATION, BUT DID NOT FOLLOW UP, DID NOT KNOW MS VALVERDE WAS HIS FAMILY PHYSICIAN. OF THE MEDS GIVEN THEN, THENEXIUM PURCHASED BY THE FAMILY OTC SEEMED TO HELP;HE HAS NEVER BEEN DX IBS, NO CHRONIC BOWEL IN FAMILY, NO HX CHRONIC DIARRHEA IN THE FAMILY.Health StatusAllergies:Allergic Reactions (Selected)No known allergies.Medications: (Selected)PrescriptionsPrescr ibedLevaquin 500 mg oral tablet: 500 mg, 1 tab(s), PO, q24hr (int), for 3 day(s), 3 tab(s), 0 Refill(s)Levsin 0.125 mg oral tablet: 0.125 mg, 1 tab(s), PO, QID, PRN: for spasm, 20 tab(s), 0 Refill(s)NexIUM 20 mg oral delayed release capsule: 20 mg, 1 cap(s), PO, Daily, 30 cap(s), 0 Refill(s)famotidine 20 mg oral tablet: 20 mg, 1 tab(s), PO, Once a day (at bedtime), for 21 day(s), 21 tab(s), 0 Refill(s).Past Medical/ Family/ Social HistoryMedical history:No active or resolved past medical history items have been selected or recorded..Surgical history:No active procedure history items have been selected or recorded..Family history:No family history items have been selected or recorded..Social history:Social & Psychosocial HabitsSubstance Abuse08/12/2016 Risk Assessment: Low Risk08/12/2016 Type: Marijuana Frequency: 1-2 times per month.Problem list:No qualifying data available.Physical ExaminationGeneral: Alert, no acute distress. Vital SignsPleasant, alert, with no symptoms at this time. Good eye contact, seen in room no 4, gives his own hx, girlfriend assistsHeent nl, lungs cta, hrrr, no m, abd soft, no mass, not tender, not overweight, no rash, normal ext gen, no hernia;bs nl.Skin: Warm, dry, pink, intact.Head: Normocephalic, atraumatic.Neck: Supple, trachea midline.Eye: Pupils are equal, round and reactive to light.Ears, nose, mouth and throat: Tympanic membranes clear, oral mucosa moist.Cardiovascular: Regular rate and rhythm, No murmur.Respiratory: Lungs are clear to auscultation, respirations are non-labored.Chest wall: No tenderness, No deformity.Back: Nontender, Normal range of motion, Normal alignment, no step-offs.Musculoskeletal: Normal ROM, normal strength, no tenderness, no swelling, no deformity.Gastrointestinal: Soft, Nontender, Normal bowel sounds, No organomegaly, no abdominal distention, not Obese, no Palpable bladder, Rectal exam: Exam deferred.Genitourinary: No tenderness, no discharge, normal external genitalia, no lesions, no discharge, no meatal irritation, no adenopathy, no open lesions, and no co of painful urination.Neurological: Alert and oriented to person, place, time, and situation, No focal neurological deficit observed, normal sensory observed, normal motor observed, normal speech observed, normal coordination observed.Lymphatics: No lymphadenopathy.Psychiatric: Cooperative, appropriate mood & affect, normal judgment, non-suicidal, easily ambulatory, no distress.Medical Decision MakingOrders Launch OrdersLaboratory:Urinalysis with Culture, if indicated Standard (Order): Urine, Stat collect, 11/29/16 07:19 EDT, Nurse collectPharmacy:NexIUM 20 mg oral delayed release capsule (Prescribe): 20 mg, 1 cap(s), PO, Daily, 30 cap(s), 0 Refill(s)Levsin 0.125 mg oral tablet (Prescribe): 0.125 mg, 1 tab(s), PO, QID, PRN: for spasm, 20 tab(s), 0 Refill(s).Results review: Interpretation Abnormal results 20-25 wbc in urine.Impression and PlanDiagnosisIrritable bowel syndrome (KRT96-DN K58.9, Discharge, Medical)PlanCondition: Unchanged.Disposition: Discharged: time 11/29/16 07:21:00.Prescriptions: Launch prescriptionsPharmacy:Levaqui n 500 mg oral tablet (Prescribe): 500 mg, 1 tab(s), PO, q24hr (int), for 3 day(s), 3 tab(s), 0 Refill(s), Levsin, Nexiium.Patient was given the following educational materials: Irritable Bowel Syndrome, Adult, Irritable Bowel Syndrome, Adult.Follow up with: Hannah Valverde Within 3 to 5 dayshomewe have refill the Nexium script in case you think you might need themwe have given you a prescription for Levsin, which is provided to relieve the feeling of bowel spasm that you have had for a couple yearsif this does not work then you will need additional testing.your provider on your card is Hannah Valverde, who can further order testing as needed. Call her office to optain an appointment.Take the antibiotic for the urine for three days, to be sure there is no urinary tract infection; Check the results with the ER or Ms Valverde in three days.You are welcomed to return anytimeT H LIYA< ER PHYSICIAN< Emerald Lopez; .Counseled: Patient, Friend, Regarding diagnosis, Regarding diagnostic results, Regarding treatment plan, Regarding prescription, Patient indicated understanding of instructions.[Electronically Signed on: 11/30/2016 05:44 EDT] Lupillo Serrano DO[Verified on: 11/30/2016 05:44 EDT] Lupillo Serrano DO [facility] ED Note-Nursingon 11-29-2016 ED Note-Nursing PT REMAINS ALERT AND ORIENTED AND HAS NO COMPLAINTS AT THIS TIME. PT HAS BEEN GIVEN DISCHARGE INSTRUCTIONS AND RX X3 TO BE FILLED. PT AMBULATES OUT OF ED W/O DIFFICULTY OR INCIDENT. [facility] ED Patient Education Noteon 11-29-2016 ED Patient Education Note Education MaterialsNutritionIrritable Bowel Syndrome, AdultIrritable bowel syndrome (IBS) is not one specific disease. It is a group of symptoms that affects the organs responsible for digestion (gastrointestinal or GI tract).To regulate how your GI tract works, your body sends signals back and forth between your intestines and your brain. If you have IBS, there may be a problem with these signals. As a result, your GI tract does not function normally. Your intestines may become more sensitive and overreact to certain things. This is especially true when you eat certain foods or when you are under stress.There are four types of IBS. These may be determined based on the consistency of your stool:? IBS with diarrhea. ?? IBS with constipation. ?? Mixed IBS. ?? Unsubtyped IBS. ?It is important to know which type of IBS you have. Some treatments are more likely to be helpful for certain types of IBS.CAUSESThe exact cause of IBS is not known.RISK FACTORSYou may have a higher risk of IBS if:? You are a woman.? You are younger than 45 years old.? You have a family history of IBS.? You have mental health problems.? You have had bacterial infection of your GI tract.SIGNS AND SYMPTOMSSymptoms of IBS vary from person to person. The main symptom is abdominal pain or discomfort. Additional symptoms usually include one or more of the following:? Diarrhea, constipation, or both. ?? Abdominal swelling or bloating. ?? Feeling full or sick after eating a small or regular-size meal. ?? Frequent gas. ?? Mucus in the stool. ?? A feeling of having more stool left after a bowel movement. ?Symptoms tend to come and go. They may be associated with stress, psychiatric conditions, or nothing at all.DIAGNOSISThere is no specific test to diagnose IBS. Your health care provider will make a diagnosis based on a physical exam, medical history, and your symptoms. You may have other tests to rule out other conditions that may be causing your symptoms. These may include:? Blood tests. ?? X-rays. ?? CT scan.? Endoscopy and colonoscopy. This is a test in which your GI tract is viewed with a long, thin, flexible tube.TREATMENTThere is no cure for IBS, but treatment can help relieve symptoms. IBS treatment often includes:? Changes to your diet, such as:? Eating more fiber.? Avoiding foods that cause symptoms.? Drinking more water.? Eating regular, medium-sized portioned meals.? Medicines. These may include:? Fiber supplements if you have constipation.? Medicine to control diarrhea (antidiarrheal medicines).? Medicine to help control muscle spasms in your GI tract (antispasmodic medicines).? Medicines to help with any mental health issues, such as antidepressants or tranquilizers.? Therapy.? Talk therapy may help with anxiety, depression, or other mental health issues that can make IBS symptoms worse.? Stress reduction.? Managing your stress can help keep symptoms under control.HOME CARE INSTRUCTIONS? Take medicines only as directed by your health care provider.? Eat a healthy diet.? Avoid foods and drinks with added sugar.? Include more whole grains, fruits, and vegetables gradually into your diet. This may be especially helpful if you have IBS with constipation.? Avoid any foods and drinks that make your symptoms worse. These may include dairy products and caffeinated or carbonated drinks.? Do not eat large meals.? Drink enough fluid to keep your urine clear or pale yellow.? Exercise regularly. Ask your health care provider for recommendations of good activities for you.? Keep all follow-up visits as directed by your health care provider. This is important.SEEK MEDICAL CARE IF:? You have constant pain.? You have trouble or pain with swallowing.? You have worsening diarrhea.SEEK IMMEDIATE MEDICAL CARE IF:? You have severe and worsening abdominal pain. ?? You have diarrhea and: ?? You have a rash, stiff neck, or severe headache. ?? You are irritable, sleepy, or difficult to awaken. ?? You are weak, dizzy, or extremely thirsty. ?? You have bright red blood in your stool or you have black tarry stools. ?? You have unusual abdominal swelling that is painful. ?? You vomit continuously. ?? You vomit blood (hematemesis). ?? You have both abdominal pain and a fever. ???This information is not intended to replace advice given to you by your health care provider. Make sure you discuss any questions you have with your health care provider.Document Released: 04/04/2006 Document Revised: 04/25/2015 Document Reviewed: 12/20/2014[employer] Interactive Patient Education ?2016 amcure. Normal [facility] ED Patient Summaryon 017 ED Patient Summary [facility] - Emergency [address] [id number] pATIENT DISCHARGE INSTRUCTIONSPatient InformationName: SHAHBAZ BETTENCOURT Age: 21 YearsDate of : [birth year]MRN: [id number] For Visit: Abdominal pain; Abdominal pain; ABD PAINArrival Time: 11/29/16 06:27:00Phone: Primary Care Physician: Provider, NoneAttending Physician: Lupillo Serrano DOComment:Visit Diagnosis:Diagnoses This Visit Abdominal pain ([id number]) Abdominal pain ([id number]) Irritable bowel syndrome (K58.9)If you received any narcotics, sedation, or any other medication that causes drowsiness for the next 24 hours, unless otherwise directed:? Do not drive a car.? Do not operate machinery such as power tools, lawn mowers, drills, sewing machines, or stoves? Avoid alcoholic beverages and drugs for allergies, nerves, or sleep? Do not make important personal or business decisions or sign any legal documentsWith: Address: When:Hannah Valverde [address] [address] Business (1) Within 3 to 5 daysComments:homewe have refill the Nexium script in case you think you might need themwe have given you a prescription for Levsin, which is provided to relieve the feeling of bowel spasm that you have had for a couple yearsif this does not work then you will need additional testing.your provider on your card is Hannah Valverde, who can further order testing as needed. Call her office to optain an appointment.Take the antibiotic for the urine for three days, to be sure there is no urinary tract infection; Check the results with the ER or [facility] in three days.You are welcomed to return anytimeT H LIYA< ER PHYSICIAN< H B [facility] Information:The exam and treatment you received today in the [facility] Emergency Department were for an urgent problem and are not intended as complete care. It is important for you to follow up with a doctor, nurse practitioner, or physician?s technical administrative assistant for ongoing care. If your symptoms become worse or you do not improve as expected and you are unable to reach your usual health care provider, you should return to the Emergency Department, we are available 24 hours a day.For those patients who have received Radiology results, the interpretation of your X-ray as given to you by our Emergency Department physician is only a preliminary report. The Radiologist will review your films and if there is a change in the diagnosis you will be notified by phone. Please make sure you have provided a working phone number so we can reach you if necessary.In the event that you had a lab culture while you were a patient in the Emergency Department, you will be notified by phone if there is a need to change your antibiotic. Please make sure you have provided a working phone number so we can reach you if necessary.[facility] Emergency Department has provided you with a complete list of medications post discharge. Please inform your coal hauler/provider of your visit and for further instruction on these medications. Any specific questions regarding your chronic medications and dosages should be discussed with your primary care physician(s) and/or pharmacist. New MedicationsPrinted Prescriptionsesomeprazole (NexIUM 20 mg oral delayed release capsule) 1 cap Oral every day. Refills: 0.hyoscyamine (Levsin 0.125 mg oral tablet) 1 tab(s) Oral 4 times a day as needed for spasm. Refills: 0.levoFLOXacin (Levaquin 500 mg oral tablet) 1 tab(s) Oral every 24 hours for 3 Days. Refills: 0.Medications to Continue That Have Not ChangedOther Medicationsfamotidine (famotidine 20 mg oral tablet) 1 tab(s) Oral once a day (at bedtime) for 21 Days. Refills: 0.Visit InformationAllergies:Substanc e Reaction Symptoms Type CommentsNo known allergies DrugVital Signs: Vitals and Measurements this Visit (last charted value for your 11/29/2016 visit) Vital Signs This Visit Temperature Tympanic: 36.8 DegC Peripheral Pulse Rate: 71 bpm Respiratory Rate: 18 br/min Systolic Blood Pressure: 136 mmHg Diastolic Blood Pressure: 86 mmHg SpO2: 98 % Oxygen Therapy: Room air Measurements This Visit Height/Length Dosin.420 cm Height/Length Estimated: 185.420 cm Weight Dosin.650 kg Weight Estimated: 81.650 kgProblems List:Problem Onset CommentsNo Problems foundPatient EducationIrritable Bowel Syndrome, AdultIrritable bowel syndrome (IBS) is not one specific disease. It is a group of symptoms that affects the organs responsible for digestion (gastrointestinal or GI tract).To regulate how your GI tract works, your body sends signals back and forth between your intestines and your brain. If you have IBS, there may be a problem with these signals. As a result, your GI tract does not function normally. Your intestines may become more sensitive and overreact to certain things. This is especially true when you eat certain foods or when you are under stress.There are four types of IBS. These may be determined based on the consistency of your stool:? IBS with diarrhea. ?? IBS with constipation. ?? Mixed IBS. ?? Unsubtyped IBS. ?It is important to know which type of IBS you have. Some treatments are more likely to be helpful for certain types of IBS.CAUSESThe exact cause of IBS is not known.RISK FACTORSYou may have a higher risk of IBS if:? You are a woman.? You are younger than 45 years old.? You have a family history of IBS.? You have mental health problems.? You have had bacterial infection of your GI tract.SIGNS AND SYMPTOMSSymptoms of IBS vary from person to person. The main symptom is abdominal pain or discomfort. Additional symptoms usually include one or more of the following:? Diarrhea, constipation, or both. ?? Abdominal swelling or bloating. ?? Feeling full or sick after eating a small or regular-size meal. ?? Frequent gas. ?? Mucus in the stool. ?? A feeling of having more stool left after a bowel movement. ?Symptoms tend to come and go. They may be associated with stress, psychiatric conditions, or nothing at all.DIAGNOSISThere is no specific test to diagnose IBS. Your health care provider will make a diagnosis based on a physical exam, medical history, and your symptoms. You may have other tests to rule out other conditions that may be causing your symptoms. These may include:? Blood tests. ?? X-rays. ?? CT scan.? Endoscopy and colonoscopy. This is a test in which your GI tract is viewed with a long, thin, flexible tube.TREATMENTThere is no cure for IBS, but treatment can help relieve symptoms. IBS treatment often includes:? Changes to your diet, such as:? Eating more fiber.? Avoiding foods that cause symptoms.? Drinking more water.? Eating regular, medium-sized portioned meals.? Medicines. These may include:? Fiber supplements if you have constipation.? Medicine to control diarrhea (antidiarrheal medicines).? Medicine to help control muscle spasms in your GI tract (antispasmodic medicines).? Medicines to help with any mental health issues, such as antidepressants or tranquilizers.? Therapy.? Talk therapy may help with anxiety, depression, or other mental health issues that can make IBS symptoms worse.? Stress reduction.? Managing your stress can help keep symptoms under control.HOME CARE INSTRUCTIONS? Take medicines only as directed by your health care provider.? Eat a healthy diet.? Avoid foods and drinks with added sugar.? Include more whole grains, fruits, and vegetables gradually into your diet. This may be especially helpful if you have IBS with constipation.? Avoid any foods and drinks that make your symptoms worse. These may include dairy products and caffeinated or carbonated drinks.? Do not eat large meals.? Drink enough fluid to keep your urine clear or pale yellow.? Exercise regularly. Ask your health care provider for recommendations of good activities for you.? Keep all follow-up visits as directed by your health care provider. This is important.SEEK MEDICAL CARE IF:? You have constant pain.? You have trouble or pain with swallowing.? You have worsening diarrhea.SEEK IMMEDIATE MEDICAL CARE IF:? You have severe and worsening abdominal pain. ?? You have diarrhea and: ?? You have a rash, stiff neck, or severe headache. ?? You are irritable, sleepy, or difficult to awaken. ?? You are weak, dizzy, or extremely thirsty. ?? You have bright red blood in your stool or you have black tarry stools. ?? You have unusual abdominal swelling that is painful. ?? You vomit continuously. ?? You vomit blood (hematemesis). ?? You have both abdominal pain and a fever. ???This information is not intended to replace advice given to you by your health care provider. Make sure you discuss any questions you have with your health care provider.Document Released: 04/04/2006 Document Revised: 04/25/2015 Document Reviewed: 12/20/2014Rose Interactive Patient Education ?2016 amcure. Viruses or BacteriaWhat?s got you sick?Antibiotics only treat bacterial infections. Viral illnesses cannot be treated with antibiotics. When an antibiotic is not prescribed, ask your healthcare professional for tips on how to relieve symptoms and feel better. Usual CauseIllnessVirusesBacteria Antibiotic NeededCold/Runny Nose NOBronchitis/Chest Cold (in otherwise healthy children and adults) NOWhooping Cough YesFlu NOStrep Throat YesSore Throat (except strep) NOFluid in the middle ear (otitis media with effusion) NOUrinary Tract Infection YesAntibiotics Aren?t Always the Answerwww.cdc.gov/getsmart GET SMART Know When Antibiotics [place] Department of Health and Human ServicesCenters for Disease Control and Prevention December 2013 [facility] UA [id number] 11-29-2016 UA Amorph. 1+ [facility] Comment on above: Order Comment: Urina lysis Microscopic order added on by [employer] Expert Rules system. Performed By: #### 5 [id number], [id number] ####[facility] (DEFAULT)[address] [place] [address] UA Bacteria Trace [facility] Comment on above: Order Comment: Urina lysis Microscopic order added on by [employer] Expert Rules system. Performed By: #### 5 [id number] ####[facility] (DEFAULT)[address] [place] [address] UA Squam Epi Rare [facility] Comment on above: Order Comment: Urina lysis Microscopic order added on by Discern Expert Rules system. Performed By: #### 5 [id number] ####[facility] (DEFAULT)[address] [place] [address] UA WBC 20-25 [facility] Comment on above: Order Comment: Urina lysis Microscopic order added on by Discern Expert Rules system. Performed By: #### 5 [id number] ####[facility] (DEFAULT)[address] [place] [address] Urine, erythrocytes Rare Normal [facility] Comment on above: Order Comment: Urina lysis Microscopic order added on by Discern Expert Rules system. Performed By: #### 5 [id number], [id number] ####[facility] (DEFAULT)[address] [place] [address] UA w Culture if Ind Standard on 11-29-2016 Breakpoint UA [facility] Comment on above: Performed By: #### 5 [id number] ####[facility] (DEFAULT)[address] [place] [address] Culture? Indicated Invalid Interpretation Code [facility] Comment on above: Performed By: #### 5 [id number], [id number] ####[facility] (DEFAULT)[address] [place] [address] Micro? Indicated Invalid Interpretation Code [facility] Comment on above: Performed By: #### 5 [id number] ####[facility] (DEFAULT)[address] [place] [address] UA Bilirubin Negative [facility] Comment on above: Performed By: #### 5 [id number], [id number], [id number] ####[facility] (DEFAULT)[address] [place] [address] UA Blood Negative Normal NEGATIVE [facility] Comment on above: Performed By: #### 5 [id number], [id number], [id number] ####[facility] (DEFAULT)[address] [place] [address] UA Clarity CLEAR Normal CLEAR [facility] Comment on above: Performed By: #### 5 [id number], [id number], [id number] ####[facility] (DEFAULT)[address] [place] [address] UA Leuk Est TRACE Abnormal NEGATIVE [facility] Comment on above: Performed By: #### 5 [id number], [id number], [id number] ####[facility] (DEFAULT)[address] [place] [address] UA Nitrite Negative Normal NEGATIVE [facility] Comment on above: Performed By: #### 5 [id number], [id number], [id number] ####[facility] (DEFAULT)[address] [place] [address] UA pH 7.0 Invalid Interpretation Code 5-8 [facility] Comment on above: Performed By: #### 5 [id number], [id number], [id number] ####[facility] (DEFAULT)[address] [place] [address] UA Protein Negative Normal NEGATIVE [facility] Comment on above: Performed By: #### 5 [id number], [id number] ####[facility] (DEFAULT)[address] [place] [address] UA Spec Grav 1.015 Invalid Interpretation Code 1.001-1.[address] [place] [address] Comment on above: Performed By: #### 5 [id number], [id number], [id number] ####[facility] (DEFAULT)[address] [place] [address] UA Urobilinogen 0.2 mg/dL Normal 0.2-1.0 [facility] Comment on above: Performed By: #### 5 [id number], [id number] ####[facility] (DEFAULT)[address] [place] [address] Urine Source Clean Catch Normal [facility] Comment on above: Performed By: #### 5 [id number], [id number] ####[facility] (DEFAULT)[address] [place] [address] Urine, color YELLOW Invalid Interpretation Code [facility] Comment on above: Performed By: #### 5 [id number] ####[facility] (DEFAULT)[address] [place] [address] Urine, glucose Negative Invalid Interpretation Code [facility] Comment on above: Performed By: #### 5 [id number], [id number], [id number] ####[facility] (DEFAULT)[address] [place] [address] Urine, ketones presence Negative Invalid Interpretation Code [facility] Comment on above: Performed By: #### 5 [id number], [id number] ####[facility] (DEFAULT)[address] [place] [address] Social History Date Type Detail Facility Start: 04-13-2023 Tobacco smoking stat [facility] Smoker (finding) [facility] Start: 07-10-2022 Tobacco smoking stat [facility] Current some day smoker [facility] Start: 08-26-2021 Alcohol intake Current non-dr head of it of alcohol (finding) [employer] Work Phone: Start: 08-26-2021 History SDOH Alcohol Comment rare [employer] Phone: Start: 08-16-2021 End: 08-26-2021 Exposure to SARS-CoV-2 (event) Not sure [employer] Phone: Start: 12-01-2016 End: 10-15-2023 Tobacco smoking status HIIS Never smoked tobacco [employer] Phone: Start: 12-01-2016 Tobacco use and exposure Smokeless tobacco non-user [employer] Phone: Start: 1995 Sex Assigned At Not on file [facility] [employer] Phone: Start: 1995 Sex Assigned At Male F [facility] Vital Signs Date Time Vital Sign Value Performing Clinician Faci lity 10-15-2023 23:42-0400 Body height 190.5 cm PHYSICIAN NO [facility] 10-15-2023 23:42-0400 Body temperature 97.8 [degF] PHYSICIAN NO [facility] 10-15-2023 23:42-0400 Body weight 98.8 kg PHYSICIAN NO [facility] 10-15-2023 23:42-0400 Diastolic blood pressure 84 mm[Hg] PHYSICIAN NO [facility] 10-15-2023 23:42-0400 Heart rate 63 /min PHYSICIAN NO [facility] 10-15-2023 23:42-0400 Respiratory rate 20 /min PHYSICIAN NO [facility] 10-15-2023 23:42-0400 SaO2% (BldA) [Mass fraction] 96 % PHYSICIAN NO [facility] 10-15-2023 23:42-0400 Systolic blood pressure 131 mm[Hg] PHYSICIAN NO [facility] 04-17-2023 07:30-0500 Body temperature 98.4 [degF] PHYSICIAN NO [facility] 04-17-2023 07:30-0500 Diastolic blood pressure 82 mm[Hg] PHYSICIAN NO [facility] 04-17-2023 07:30-0500 Heart rate 60 /min PHYSICIAN NO [facility] 04-17-2023 07:30-0500 Respiratory rate 18 /min PHYSICIAN NO [facility] 04-17-2023 07:30-0500 SaO2% (BldA) [Mass fraction] 98 % PHYSICIAN NO [facility] 04-17-2023 07:30-0500 Systolic blood pressure 152 mm[Hg] PHYSICIAN NO [facility] 04-14-2023 14:02-0500 Body height 190.5 cm PHYSICIAN NO [facility] 04-13-2023 18:54-0500 Body weight 88.17 kg PHYSICIAN NO [facility] 04-13-2023 18:12-0500 Diastolic blood pressure 84 mm[Hg] PHYSICIAN NO [facility] 04-13-2023 18:12-0500 Heart rate 77 /min PHYSICIAN NO [facility] 04-13-2023 18:12-0500 Respiratory rate 20 /min PHYSICIAN NO [facility] 04-13-2023 18:12-0500 SaO2% (BldA) [Mass fraction] 99 % PHYSICIAN NO [facility] 04-13-2023 18:12-0500 Systolic blood pressure 159 mm[Hg] PHYSICIAN NO [facility] 04-13-2023 12:43-0500 Body height 190.5 cm PHYSICIAN NO [facility] 04-13-2023 12:43-0500 Body temperature 97.1 [degF] PHYSICIAN NO [facility] 04-13-2023 12:43-0500 Body weight 88.3 kg PHYSICIAN NO [facility] 01-26-2023 09:17-0400 Diastolic blood pressure 80 mm[Hg] PHYSICIAN NO [facility] 01-26-2023 09:17-0400 Heart rate 60 /min PHYSICIAN NO [facility] 01-26-2023 09:17-0400 Respiratory rate 18 /min PHYSICIAN NO [facility] 01-26-2023 09:17-0400 SaO2% (BldA) [Mass fraction] 99 % PHYSICIAN NO [facility] 01-26-2023 09:17-0400 Systolic blood pressure 141 mm[Hg] PHYSICIAN NO [facility] 01-26-2023 07:18-0400 Body height 190.5 cm PHYSICIAN NO [facility] 01-26-2023 07:18-0400 Body temperature 98 [degF] PHYSICIAN NO [facility] 01-26-2023 07:18-0400 Body weight 91.6 kg PHYSICIAN NO [facility] 07-10-2022 12:23-0400 Diastolic blood pressure 100 mm[Hg] PHYSICIAN NO [facility] 07-10-2022 12:23-0400 Heart rate 65 /min PHYSICIAN NO [facility] 07-10-2022 12:23-0400 Respiratory rate 20 /min PHYSICIAN NO [facility] 07-10-2022 12:23-0400 SaO2% (BldA) [Mass fraction] 98 % PHYSICIAN NO [facility] 07-10-2022 12:23-0400 Systolic blood pressure 147 mm[Hg] PHYSICIAN NO [facility] 07-10-2022 11:14-0400 Body height 190.5 cm PHYSICIAN NO [facility] 07-10-2022 11:14-0400 Body temperature 97.9 [degF] PHYSICIAN NO [facility] 07-10-2022 11:14-0400 Body weight 92.8 kg PHYSICIAN NO [facility] 08-26-2021 16:16-0400 Body height 190.5 cm [facility] 08-26-2021 16:16-0400 Body mass index (BMI) [Ratio] 25 kg/m2 [facility] 08-26-2021 16:16-0400 Body temperature 98.2 [degF] [facility] 08-26-2021 16:16-0400 Body weight 90.72 kg [facility] 08-26-2021 16:16-0400 Diastolic blood pressure 81 mm[Hg] [facility] 08-26-2021 16:16-0400 Heart rate 84 /min [facility] 08-26-2021 16:16-0400 Respiratory rate 16 /min [facility] 08-26-2021 16:16-0400 SaO2% (BldA) [Mass fraction] 97 % [facility] 08-26-2021 16:16-0400 Systolic blood pressure 130 mm[Hg] [facility] Functional Status Date Assessment Result Facility 04-17-2023 Functional status Patient at Baseline [facility] Work Phone: 04-13-2023 Functional status Disability Sta tus Patient at Baseline [facility] Work Phone: Mental Status Date Assessment Result Facility 04-17-2023 Cognitive function Cognitive Sta tus Patient at Baseline [facility] Work Phone: Discharge summary 04-17-2023 Note Date & Type Note Facility 04-17-2023 Discharge summary Note Date/Time April 17, 2023 10:22am [facility] [address] [place] [address] Discharge Summary Signed Patient: Shahbaz Bettencourt MR#: [id number] : 1995 Acct:[id number] Age/Sex: 28 / M Adm Date: 3 Loc: 1S Room: [address] [place] [address]: Huan Brown MD Copies to: Huan Brown MD NO FAMILY PHYSICIAN~ Providers Date of Discharge: 04/17/23 Discharging Provider: Huan Brown Primary Care Provider: PHYSICIAN NO FAMILY Discharge Diagnosis (1) Bipolar 1 disorder, mixed: Final Diagnosis Final Discharge Diagnosis: Bipolar 1 disorder Summary Hospital Course Hospital course: According to admission note: Mr. Bettencourt is a 28 year old male presents after agitation and reported suicidality. Patient was seen sitting up in bed. He states that he was falsely accused of being suicidal by his neighbors. He states that he was on edge and was upset for the work issue, where he noticed hewas throwing things and screaming. He states no one else was in the apartment with him. 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 He denies pouring anything on himself. He denies saying he was going to stab himself and that was on fire. Patient states his neighbors called the police and he was admitted. This morning he states he is very on edge because he was upset that he is falsely accused. Of note, patient states that he rarely sleeps well. States he does not remember when he had a full night of rest, says he has history of insomnia. He also states that he is very quick to anger, and is unable to control it and yells, but cools down quickly. Past psych history: Anxiety, bipolar disorder Past hospitalizations: Multiple Past suicide attempts: None reported Family psych history: Unknown Previous medications: Multiple, noncompliant Alcohol and drug use: Occasional marijuana Living: With his father Employment: [employer] Patient was overall calm and cooperative during his hospitalization. He did nothave any aggressive behavior towards staff or peers. He was eventually given a group pass but did not attend many groups. He slept okay and appetite was normal during his hospitalization. Did not report any suicidality during his hospitalization and did not exhibit any behavior concerning for suicidality. Hewas more organized and seem to be more linear as time went on. On the day of discharge, patient reported that he was doing better. He denied any depression,suicidality, homicidality. He did not exhibit any symptoms concerning for anger, psychosis or anger. He spent most the time during cephalization coloringwhich she seemed to give him enjoyment. He stated that he would continue the medications and follow-up with outpatient services. He did receive Abilify Maintena during his hospitalization. Condition Condition at Discharge: Stable Status at Discharge Cognitive/behavioral status at discharge: Mental Status Exam: Appearance: grossly normal Mental Status: mental status grossly normal Mood: Euthymic mood Affect: Normal affect Speech and Movement: speech and movement normal and speech clear Attitude: cooperative Thought Process: normal Thought Content: Denied hallucinations, no homicidality and no suicidality Insight: Good Judgment: Good Functional status at discharge: independent ambulation Overall status at discharge: patient is back to baseline Time Spent with Patient Time spent providing/coordinating discharge services (# min): 30 Exam Physical Exam Vital Signs: Temp Pulse Resp BP Pulse Ox O2 Del Method 98.4 F 60 18 152/82 H 98 Room Air 04/17/23 07:30 04/17/23 07:30 04/17/23 07:30 04/17/23 07:30 04/17/23 07:30 04/17/23 08:56 Discharge Plan Discharge Plan Patient Disposition: Home Activity: No Activity Restriction Diet: Regular Additional Instructions: Important Contact Information You can call [facility] at [phone] any time day or night if you have emergent questions or question regarding discharge instructions. If at any time you are feeling an increase inyour psychiatric symptoms, call your physician or behavioral healthcare provider. If any time you have thoughts of harming yourself or others contact one of the following: Call (available 08/11) Crisis Text Line (available 08/11) text 4HOPE to [phone] [facility] Hope Line (available 8 a.m. Midnight) call [phone] ([phone]) Regular Diet No Activity Restrictions Instructions: Bipolar Disorder (DC), [facility] Behavioral Health DC Instructions Stand Alone Forms: Work/School Release Form Prescriptions: New aripiprazole 10 mg Tablet 10 mg PO DAILY Qty: 11 0RF Abilify Maintena 400 mg Suspension,Extended Rel Syring 400 mg IM Q28D Qty: 1 0RF Rx Instructions: Due on 05/15/2023 Follow Up: [facility] [Outside] (Contact [facility] to establish a PCP for any medical needs. ) [facility] [Outside] Documented By: Huan Brown MD 04/17/23 1020 Signed By: <Electronically signed by Huan Brown MD> 04/17/23 1023 [facility] Work Phone: Hospital Discharge instructions 04-17-2023 Note Date & Type Note Facility 04-17-2023 Hospital Discharg e instructions Additional Instructions Important Contact Information You can call [facility] at [phone] any time day or night if you have emergent questions or question regarding discharge instructions. If at any time you are feeling an increase in your psychiatric symptoms, call your physician or behavioral healthcare provider. If any time you have thoughts of harming yourself or others contact one of the following: Call 9-8-8 (available 08/11) Crisis Text Line (available 08/11) text 4HOPE to [phone] [facility] Hope Line (available 8 a.m. Midnight) call [phone] ([phone]) Regular Diet No Activity Restrictions You received Abilify Maintena 400mg Injection on 04/15/23. Your next dose is due on 05-12-23 [facility] Work Phone: Progress note 04-16-2023 Note Date & Type Note Facility 04-16-2023 Progress note Note Date/Time April 16, 2023 11:26am [facility] [address] [place] [address] Psychiatry Progress Note Signed Patient: Shahbaz Bettencourt MR#: [id number] : 1995 Acct:[id number] Age/Sex: 28 / M Adm Date: 3 Loc: 1S Room: [address] [place] [address] Type : ADM IN Attending Dr: Huan Brown MD Copies to: ~ Date of Service: 04/16/2023 Subjective Subjective Narrative: Mr. Bettencourt reported that he is doing good. He stated that he slept better overnight and appetite has been normal. He tolerated the Abilify injection without any problems. He stated that he feels his mood has been pretty steady and denied any issues at this time. Mental Status Exam: Appearance: grossly normal Mental Status: mental status grossly normal Mood: Improving mood Affect: Improving affect Speech and Movement: speech and movement normal and speech clear Attitude: cooperative Thought Process: normal Thought Content: Denied hallucinations, no homicidality, improving suicidality Insight: fair Judgment: fair Exam Physical Exam Vital Signs: Temp Pulse Resp BP Pulse Ox O2 Del Method 97.8 F 79 16 147/90 H 96 Room Air 04/16/23 07:30 04/16/23 07:30 04/16/23 07:30 04/16/23 07:30 04/16/23 07:30 04/16/23 07:30 Assessment/Plan Assessment/Plan (1) Bipolar 1 disorder, mixed: Plan Patient doing better at this time. Anticipate discharge tomorrow We will give Cody past and see if and remained stable Continue Abilify 10mg at bedtime Received Abilify Maintena 400 mg monthly Continue to monitor mental status Encourage group participation and medication compliance Risk benefits alternatives explained Documented By: Huan Brown MD 04/16/231124 Signed By: <Electronically signed by Huan Brown MD> 04/16/23 1126 [facility] Work Phone: Progress note 04-15-2023 Note Date & Type Note Facility 04-15-2023 Progress note Note Date/Time April 15, 2023 11:47am [facility] [address] [place] [address] Psychiatry Progress Note Signed Patient: Shahbaz Bettencourt MR#: [id number] : 1995 Acct:[id number] Age/Sex: 28 / M Adm Date: 3 Loc: Room: [address] [place] [address] Type : ADM IN Attending Dr: Huan Brown MD Copies to: ~ Date of Service: 04/15/2023 Subjective Subjective Narrative: Mr. Bettencourt was seen this morning resting comfortably in bed. He states that he is feeling very tired, did not sleep well last night. He states that the medication he took last night did not help him, does state that trazodone tends to work well. He denies any current HI/SI/hallucinations. Patient seemed less than enthused about having daily medications, has history of being medication nonadherent. Further seemed hesitant about discussing long-acting medication. Patient was less vocal this morning, states that because he did not sleep well he would like to go back to bed. Mental Status Exam: Appearance: grossly normal Mental Status: mental status grossly normal Mood: Irritated mood Affect: Irritated affect Speech and Movement: speech and movement normal and speech clear Attitude: cooperative Thought Process: normal Thought Content: Denied hallucinations, no homicidality, denied current suicidality Insight: poor Judgment: poor Patient was personally seen by me on the day of the encounter. I reviewed the history and performed the kwong elements of the physical examination. I formulated the plan of care and confirmed this with the resident as noted below. Exam Physical Exam Vital Signs: Temp Pulse Resp BP Pulse Ox O2 Del Method 98.2 F 74 16 130/81 97 Room Air 04/15/23 07:30 04/15/23 07:30 04/15/23 07:30 04/15/23 07:30 04/15/23 07:30 04/15/23 07:30 Const General: healthy appearing and no acute distress Resp Effort & Inspection: normal respiratory effort and able to speak in complete sentences Neuro General: patient alert, patient awake and patient oriented x3 Psych Appearance: grossly normal Mental Status: mental status grossly normal Mood: irritable mood Affect: irritable affect Speech and Movement: speech and movement normal Attitude: cooperative Thought Process: normal Thought Content: normal Insight: fair Judgment: fair Assessment/Plan Assessment/Plan (1) Bipolar 1 disorder, mixed: Plan Continue Abilify 10mg at bedtime Will start Abilify Maintena 400 mg monthly Continue to monitor mental status Encourage group participation and medication compliance Risk benefits alternatives explained Documented By: Huan Brown MD 04/15/23 1139 Signed By: <Electronically signed by Huan Brown MD> 04/15/23 1223 <Electronically signed by MD RADU Limon> 04/15/23 115 [facility] Work Phone: History and physical note 04-14-2023 Note Date & Type Note Facility 04-14-2023 History and physical note Note Date/Time April 14, 2023 10:48am [facility] [address] [place] [address] Psychiatry H&P Signed with Alda Patient: Shahbaz Bettencourt MR#: [id number] : 1995 Acct:[id number] Age/Sex: 28 / M Adm Date: 3 Loc: Room: [address] [place] [address] Type: ADM IN Attending Dr: Huan Brown MD Copies to: Huan Brown MD NO FAMILY PHYSICIAN~ ADDENDUM1 CNI: Normal olfaction CNII: Visual vickers intact CNIII,IV,: EOM intact, no nystagmus. Pupils equal, round, reactive to light and accommodation. CNV: Sensation intact to light touch. CNVII: Raises eyebrows, smile/frown, puff out cheeks symmetrically. CNVIII: Hearing intact bilaterally. CNIX,X: Voice normal, soft palate elevation normal, symmetrical. CNXI: Shoulder shrug strong, equal bilaterally. CNXII: Tongue protrusion midline, movement symmetrical. Addendum Documented By: Huan Brown MD 04/14/231321 Addendum Signed By: <Electronically signed by Huan Brown MD> 04/14/231321 Date of Service: 04/14/2023 HPI History of Present Illness History of present illness: History of present illness: Mr. Bettencourt is a 28 year old male presents after agitation and reported suicidality. Patient was seen sitting up in bed. He states that he was falsely accused of being suicidal by his neighbors. He states that he was on edge and was upset for the work issue, where he noticed hewas throwing things and screaming. He states no one else was in the apartment with him. 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
--- NOTE | 2023-10-16 15:03 | ED.WOUNDLAC1 ---
HPI - Wound/Laceration General Chief Complaint: Wound/Laceration Stated Complaint: RT HAND INJURY Time Seen by Provider: 10/16/23 14:46 Source: patient Mode of arrival: walk-in Limitations: no limitations History of Present Illness HPI narrative: 28-year-old male presents for laceration on his right hand. It was sustained on a kitchen knife when he was washing dishes last night at home and is between his fourth and fifth fingers. He went to another hospital but it was too busy and he did not stay. He has had a tetanus shot within the last 5 years. No other wound was sustained. Related Data Previous Rx's ?Medication ?Instructions ?Recorded cephalexin 500 mg capsule 500 mg PO TID 10 days #30 caps 08/26/23 sulfamethoxazole 800 1 tab PO BID 10 days #20 tabs 08/26/23 mg-trimethoprim 160 mg tablet (Bactrim DS) cephalexin 500 mg capsule 500 mg PO TID 5 days #15 caps 10/16/23 Allergies Allergy/AdvReac Type Severity Reaction Status Date / Time No Known Drug Allergies Allergy Verified 08/26/23 20:03 Review of Systems ROS Narrative A ten point review of systems is negative except as noted above. Exam Narrative Exam Narrative: Nurses note and vital signs reviewed and patient is not hypoxic. General: The patient appears well and in no apparent distress. Patient is resting comfortably on cart. Skin: Warm, dry, no pallor noted. There is no rash noted. Head: Normocephalic, atraumatic Eye: Normal conjunctiva, no drainage Ears, Nose, Mouth, and Throat: oral mucosa is moist. Nares patent. Cardiovascular: Regular Rate and Rhythm Respiratory: Patient is in no distress, no accessory muscle use Back: non-tender GI: Nontender Musculoskeletal: There is an 8 mm laceration in the webspace between the fourth and fifth fingers of the right hand, distally. Fingers have full range of motion. No other wounds are present. Neurological: A&O, normal speech Psychiatric: Cooperative Constitutional Vital Signs, click to edit/add: Last Vital Signs Temp 98.5 F 10/16/23 14:45 Pulse 82 10/16/23 14:45 Resp 18 10/16/23 14:45 BP 147/98 H 10/16/23 14:45 Pulse Ox 95 10/16/23 14:45 Course Vital Signs Vital signs: Vital Signs Temperature 98.5 F 10/16/23 14:45 Pulse Rate 82 10/16/23 14:45 Respiratory Rate 18 10/16/23 14:45 Blood Pressure 147/98 H 10/16/23 14:45 Pulse Oximetry 95 10/16/23 14:45 Temperature 98.5 F 10/16/23 14:45 Pulse Rate 82 10/16/23 14:45 Respiratory Rate 18 10/16/23 14:45 Blood Pressure 147/98 H 10/16/23 14:45 Pulse Oximetry 95 10/16/23 14:45 MDM - Wound/Laceration MDM Narrative Medical decision making narrative: This wound occurred about 18 hours ago and sutures are not indicated. Tetanus is up-to-date. The wound was cleansed and dressed and splint applied. Application of the splint was checked by me and found to be appropriate, he is neurovascular intact. Treatment diagnosis and follow-up were discussed with the patient. Differential Diagnosis Differential diagnosis: Likely laceration Discharge Plan Discharge Stand Alone Forms: Portal Instructions Chief Complaint: Wound/Laceration Clinical Impression: Laceration Patient Disposition: Home, Self-Care Time of Disposition Decision: 15:00 Condition: Good Mode of Transportation: Private Vehicle Prescriptions / Home Meds: New cephalexin 500 mg capsule 500 mg PO TID 5 Days Qty: 15 0RF No Action cephalexin 500 mg capsule 500 mg PO TID 10 Days Qty: 30 0RF sulfamethoxazole-trimethoprim [Bactrim DS] 800-160 mg tablet 1 tab PO BID 10 Days Qty: 20 0RF Print Language: [place] Citizen Instructions: Laceration Without Closure (ED) Referrals: Physician,Non-Staff, MD [Primary Care Provider] - 1 week
== END 2023-10-16 15:13 | disposition home or self-care (01) ==
PROVIDERS: Emergency Provider Emergency Medicine
DX: S61.411A Laceration without foreign body of right hand, initial encounter (principal); W26.0XXA Contact with knife, initial encounter
CPT/HCPCS: 99283